=== PATIENT | female | born 1945 | race Caucasian/White ===

== ENCOUNTER → 2020-07-09 | Outpatient (CLI) | payer MEDICARE, BC ==
[2020-07-10 04:07] LABS: DHEA SO4 34.8 ug/dL (13.9-142.8); ESTRADIOL LEVEL 14.9 pg/mL (.); PROGESTERONE 1.4 ng/mL (.)
== END | disposition home or self-care (01) ==
LOC: LAB 10:04
PROVIDERS: ATTEND Obstetrics & Gynecology
DX: N95.1 Menopausal and female climacteric states (principal); Z79.890 Hormone replacement therapy
CPT/HCPCS: 36415; 82627; 82670; 82679; 84144

== ENCOUNTER → 2021-05-17 | Outpatient (CLI) | payer MEDICARE, BC ==
--- NOTE | 2021-05-17 15:58 | RAD ---
EXAM: Chest, 2 views. HISTORY: Breast cancer. COMPARISON: None. FINDINGS: 2 views of the chest are obtained. There is bilateral lower lobe and lingular linear atelec tasis or scarring. There is no consolidation, pleural effusion or pneumothorax. The heart is normal i n size. There is a chronic mild to moderate wedge compression deformity at an upper thoracic vertebra l level. There are left axillary clips. IMPRESSION: Bilateral lower lobe and lingular linear atelectasis or scarring. Electronically signed by: Katia Sharp MD (05/17/2021 3:55 PM) [id number]
== END ==
LOC: RAD 15:19
DX: C50.412 Malignant neoplasm of upper-outer quadrant of left female breast (principal); M43.8X4 Other specified deforming dorsopathies, thoracic region
CPT/HCPCS: 71046

== ENCOUNTER 2021-07-02 10:19 | Inpatient (IN) | payer MEDICARE, BC ==
[~2021-07-02] VITALS: Ht 160 cm; Wt 72.6 kg
[2021-07-02 08:50] VITALS: BP 110/58
--- NOTE | 2021-07-02 10:39 | RAD ---
CT HEAD INDICATION: Code stroke COMPARISON: None Available. Exposure: One or more of the following individualized dose reduction techniques were utilized for thi s examination: 1. Automated exposure control 2. Adjustment of the mA and/or kV according to patient size 3. Use of iterative reconstruction technique TECHNIQUE: 5 mm contiguous axial images were obtained from the skull base to the vertex in both bone and soft tissue algorithm. FINDINGS: Mild prominent bilateral periventricular white matter hypodensities likely chronic small vessel ische myah disease No evidence of acute intracranial hemorrhage. No extra-axial fluid collections. No mass effect or midline shift. The lateral ventricles are prominent. Basal cisterns are patent. No fractures identified.Meehan-white differentiation is preserved.Globes and orbits are within normal l imits. Paranasal sinuses and mastoid air cells are clear. IMPRESSION: 1. No acute intracranial findings. 2. Mild prominent appearing lateral ventricles could be age related or normal pressure hydrocephalus. FOR INTERNAL CODING PURPOSES Critical result: Findings discussed with ER physician at 07/02/2021 10:32 AM. RESULT CODE: (C) Electronically signed by: Gómez Crow MD (07/02/2021 10:37 AM) [id number]
--- NOTE | 2021-07-02 10:43 | PHYS DOC ---
Past History Alcohol Use: None Adult General Chief Complaint Chief Complaint: NEURO SYMPTOMS/DEFICITS HPI HPI Patient is a 75-year-old female presenting via EMS for altered mental status. Patient initially brought in via EMS due to suspect stroke. Patient's last known normal was night prior at 9 PM. Patient reportedly woke up and was more confused and "talking gibberish"per who lives with patient. He states there was no trauma or falls but admits patient was unstable on her feet and having trouble performing simple tasks such as opening the gate in their yard which is something she has never struggled with before. He also reports that at times, she became incomprehensible when speaking prompting him to contact EMS as he was concern for potential stroke. does disclose that patient has history of left-sided breast cancer, unsure the name of it, but recently had a lumpectomy in April 2021 at [facility] and has been undergoing radiation treatments there as well. Review of Systems Review of Systems ROS unobtainable due to patient condition/mentation Allergies Allergies Allergies Coded Allergies Type Severity Reaction Last Updated Verified oxycodone Allergy Unknown 07/02/21 Yes Physical Exam Physical Exam Constitutional: Patient appears pleasantly confused talking in incomprehensible sentences HEENT: Head: Normocephalic and atraumatic. TMs clear, no hemotympanum Conjunctivae and EOM are normal. Pupils are equal, round, and reactive to light. Oropharynx is clear and moist. No hematomas or lacerations or abrasions to face or scalp OP clear, no blood, no malocclusion, dentition intact Nares clear, no nasal septal hematoma Midface stable Neck: C-spine midline nontender, no step-offs Cardiovascular: Normal rate, regular rhythm and normal heart sounds. Pulmonary/Chest: Effort normal and breath sounds normal. No respiratory distress. No wheezes. CTA bilaterally Abdominal: Soft. Bowel sounds are normal. Pt exhibits no distension. There is no tenderness. Musculoskeletal: No bony tenderness to extremities, no deformities, full ROM extremities Chest wall stable Pelvis stable and non-tender No vertebral TTP and spine without stepoffs Neurological: Pt is alert and oriented to person only which is not her baseline Moving all extremities willfully, able to wiggle all fingers and toes No meningeal signs/nuchal rigidity Motor and sensory function fully intact Downgoing toes bilaterally Skin: Skin is warm and dry. No abrasions, no lacerations. Patient's left breast is red and hot to touch and appears tender with palpation versus contralateral side Psychiatric: Behavior is inappropriate. Poor judgment and memory. Normal affect and energetic mood. Unable to fully assess due to underlying mentation Current Patient Data Vital Signs Vital Signs Date Time Temp Pulse Resp B/P (MAP) Pulse Ox O2 Delivery O2 Flow Rate FiO2 07/02/21 10:35 101.8 133 16 130/75 97 Room Air Vital Signs Date Time Temp Pulse Resp B/P (MAP) Pulse Ox O2 Delivery O2 Flow Rate FiO2 07/02/21 17:13 77 16 125/74 (91) 98 Room Air 07/02/21 10:35 101.8 Lab Results Current Medications Medications (Trade) Dose Ordered Sig/Katelynn Route PRN Reason Start Time Stop Time Status Last Admin Dose Admin Acetaminophen (Tylenol Supp) 650 mg 1X ONCE OK 07/02/21 11:00 07/02/21 11:05 DC 07/02/21 11:33 Sodium Chloride 1,650 ml @ 1,650 mls/hr Q1H IV 07/02/21 11:00 07/02/21 21:28 DC 07/02/21 11:41 Sodium Chloride 500 ml @ 1,000 mls/hr PRN Q30MIN PRN IV SEE COMMENTS 07/02/21 11:00 07/05/21 19:34 DC Vancomycin HCl (Vanco Per Pharmacy) 1 each PRN DAILY PRN MC SEE COMMENTS 07/02/21 11:00 07/05/21 19:34 DC 07/04/21 13:53 Piperacillin Sod/ Tazobactam Sod 4.5 gm/Sodium Chloride 50 ml @ 100 mls/hr Q6HRS IV 07/02/21 12:00 07/02/21 21:32 DC 07/02/21 11:40 Sodium Chloride 50 ml @ As Directed STK-MED ONCE .ROUTE 07/02/21 11:22 07/02/21 11:22 DC Piperacillin Sod/ Tazobactam Sod (Zosyn) 4.5 gm STK-MED ONCE IV 07/02/21 11:22 07/02/21 11:22 DC Vancomycin HCl 1.75 gm/Sodium Chloride 500 ml @ 250 mls/hr 1X ONCE IV 07/02/21 12:30 07/02/21 14:29 DC 07/02/21 12:46 Diltiazem HCl (Cardizem Iv Push) 20 mg 1X ONCE IVP 07/02/21 12:15 07/02/21 12:20 DC 07/02/21 12:23 Fentanyl Citrate (Fentanyl 2ml Vial) 75 mcg 1X ONCE IVP 07/02/21 16:00 07/02/21 16:04 DC 07/02/21 15:58 Sodium Chloride 1,000 ml @ 125 mls/hr 1X ONCE IV 07/02/21 16:45 07/03/21 00:44 DC 07/02/21 16:45 Ondansetron HCl (Zofran) 4 mg PRN Q4HRS PRN IVP NAUSEA/VOMITING 1st choice 07/02/21 21:00 07/03/21 20:59 DC Diltiazem HCl (Cardizem Iv Push) 20 mg 1X ONCE IVP 07/02/21 21:00 07/02/21 21:00 DC Diltiazem HCl 125 mg/Sodium Chloride 125 ml @ 5 mls/hr CONT PRN IV SEE I/O RECORD 07/02/21 21:00 07/02/21 21:00 DC Haloperidol Lactate (Haldol) 5 mg 1X ONCE IVP 07/02/21 21:00 07/02/21 21:00 DC Fentanyl Citrate (Fentanyl 2ml Vial) 50 mcg PRN Q3HRS ONCE IVP 07/02/21 21:00 07/02/21 21:00 DC Sodium Chloride 1,000 ml @ 1,000 mls/hr 1X ONCE IV 07/02/21 21:00 07/02/21 21:00 DC Sodium Chloride 1,000 ml @ 125 mls/hr 1X ONCE IV 07/02/21 23:00 07/02/21 21:00 DC Diltiazem HCl (Cardizem Iv Push) 25 mg STK-MED ONCE IVP 07/02/21 21:09 07/02/21 21:09 DC Sodium Chloride 1,000 ml @ 1,000 mls/hr 1X ONCE IV 07/02/21 21:15 07/02/21 21:59 DC 07/02/21 21:55 Diltiazem HCl 125 mg/Sodium Chloride 125 ml @ 5 mls/hr CONT PRN IV SEE I/O RECORD 07/02/21 22:00 07/05/21 19:34 DC 07/04/21 05:51 Diltiazem HCl (Cardizem Iv Push) 20 mg 1X ONCE IVP 07/02/21 21:00 07/02/21 21:26 DC 07/02/21 21:10 Haloperidol Lactate (Haldol) 5 mg 1X ONCE IVP 07/02/21 21:00 07/02/21 21:26 DC 07/02/21 21:57 Fentanyl Citrate (Fentanyl 2ml Vial) 50 mcg PRN Q3HRS PRN IVP PAIN 07/02/21 21:00 07/05/21 19:34 DC 07/03/21 01:37 Sodium Chloride 1,000 ml @ 125 mls/hr 1X ONCE IV 07/02/21 23:00 07/03/21 06:59 DC 07/02/21 23:00 Piperacillin Sod/ Tazobactam Sod 4.5 gm/Sodium Chloride 50 ml @ 100 mls/hr Q6H IV 07/02/21 22:00 07/05/21 19:34 DC 07/05/21 16:49 Vancomycin HCl 1 gm/Sodium Chloride 250 ml @ 250 mls/hr Q24H IV 07/03/21 13:00 07/04/21 13:46 DC 07/04/21 13:41 Vancomycin HCl (Vancomycin Trough Level) 1 each 1X ONCE MC 07/04/21 12:30 07/04/21 12:31 DC 07/04/21 12:30 Lactobacillus Rhamnosus (Culturelle) 1 cap BID PO 07/03/21 09:00 07/05/21 19:34 DC 07/05/21 08:06 Adenosine (Adenocard) 6 mg STK-MED ONCE IV 07/03/21 10:39 07/03/21 10:39 DC Diltiazem HCl (Cardizem Iv Push) 25 mg STK-MED ONCE IVP 07/03/21 10:46 07/03/21 10:46 DC Diltiazem HCl (Cardizem Iv Push) 10 mg 1X ONCE IVP 07/03/21 11:00 07/03/21 11:08 DC 07/03/21 11:01 Adenosine (Adenocard) 12 mg 1X ONCE IV 07/03/21 11:00 07/03/21 11:08 DC 07/03/21 11:00 Digoxin (Lanoxin) 500 mcg 1X ONCE IV 07/03/21 15:30 07/03/21 15:34 DC 07/03/21 15:38 Digoxin (Lanoxin) 125 mcg DAILY PO 07/04/21 09:00 07/04/21 09:30 DC Diltiazem HCl (Cardizem 24hr Cd) 240 mg DAILY PO 07/04/21 09:00 07/05/21 19:34 DC 07/05/21 08:08 Acetaminophen (Tylenol) 325 mg STK-MED ONCE PO 07/03/21 20:04 07/03/21 20:04 DC Acetaminophen (Tylenol) 650 mg PRN Q6HRS PRN PO MILD PAIN / TEMP > 100.3'F 07/03/21 20:15 07/05/21 19:34 DC 07/05/21 14:37 Metoprolol Succinate (Toprol Xl) 25 mg DAILY PO 07/04/21 09:00 07/04/21 09:30 DC Atorvastatin Calcium (Lipitor) 10 mg QHS PO 07/04/21 21:00 07/05/21 19:34 DC 07/04/21 19:42 Pantoprazole Sodium (Protonix) 40 mg DAILYAC PO 07/04/21 09:00 07/05/21 19:34 DC 07/05/21 08:08 Digoxin (Lanoxin) 250 mcg 1X ONCE IV 07/04/21 12:15 07/04/21 12:16 DC 07/04/21 12:08 Vancomycin HCl 1 gm/Sodium Chloride 250 ml @ 250 mls/hr Q12H IV 07/05/21 01:00 07/05/21 19:34 DC 07/05/21 00:51 Vancomycin HCl (Vancomycin Trough Level) 1 each 1X ONCE MC 07/06/21 12:30 07/05/21 19:34 DC Amiodarone HCl (Cordarone) 200 mg BID PO 07/04/21 17:00 07/05/21 19:34 DC 07/05/21 08:07 Aspirin (Aspirin Enteric Coated) 81 mg DAILYWBKFT PO 07/05/21 08:00 07/05/21 19:34 DC 07/05/21 08:06 Amiodarone HCl 150 mg/Dextrose 103 ml @ 618 mls/hr 1X ONCE IVP 07/04/21 18:00 07/04/21 18:09 DC 07/04/21 19:40 Amiodarone HCl 150 mg/Dextrose 103 ml @ 600 mls/hr 1X ONCE IV 07/04/21 18:00 07/04/21 18:08 DC Amiodarone HCl 450 mg/Dextrose 259 ml @ 33.33 mls/ hr CONT PRN IV SEE I/O RECORD 07/04/21 18:00 07/05/21 17:59 DC 07/05/21 05:05 Amiodarone HCl (Cordarone) 150 mg STK-MED ONCE IVP 07/05/21 02:32 07/05/21 02:32 DC EKG EKG Initial EKG ordered and interpreted by myself at 1036 hrs. as in irregular rhythm at 167 bpm, prolonged QTC at 473 otherwise unremarkable intervals, no axis deviation, gross artifact due to tremors with concern for T wave inversion in leads V1 through V4, no obvious STEMI Repeat EKG ordered and interpreted by myself at 1245 hrs. as sinus rhythm at 95 bpm with several PVCs present, prolonged QTC at 468 otherwise unremarkable intervals, left axis deviation, T wave inversion noted in leads V1 through V3 otherwise no obvious ischemic findings, no STEMI Repeat EKG ordered and interpreted by myself at 1747 hrs. as sinus rhythm at 80 bpm, unremarkable intervals, persistent T wave inversions noted in leads V1 through V3 otherwise no acute ischemic findings, no STEMI Radiology/Procedures Radiology/Procedures CT HEAD INDICATION: Code stroke COMPARISON: None Available. Exposure: One or more of the following individualized dose reduction techniques were utilized for this examination: 1. Automated exposure control 2. Adjustment of the mA and/or kV according to patient size 3. Use of iterative reconstruction technique TECHNIQUE: 5 mm contiguous axial images were obtained from the skull base to the vertex in both bone and soft tissue algorithm. FINDINGS: Mild prominent bilateral periventricular white matter hypodensities likely chronic small vessel ischemic disease No evidence of acute intracranial hemorrhage. No extra-axial fluid collections. No mass effect or midline shift. The lateral ventricles are prominent. Basal cisterns are patent. No fractures identified.Meehan-white differentiation is preserved.Globes and orbits are within normal limits. Paranasal sinuses and mastoid air cells are clear. IMPRESSION: 1. No acute intracranial findings. 2. Mild prominent appearing lateral ventricles could be age related or normal pressure hydrocephalus. ///////////////////////////// Single AP view of the chest. Comparison: 05/17/2021. Indication: Code stroke Findings: Stable degenerative change of bilateral shoulders. The heart is at the upper limits of normal but stable. There is no pneumothorax or effusion. No air space or interstitial disease. Impression: 1. No acute cardiopulmonary process. Electronically signed by: Stanley Arriola MD (07/02/2021 11:19 AM) [id number] Heart Score C/O Chest Pain: N/A HEART Score for Chest Pain: HEART Score for Chest Pain Response (Comments) Value History Moderately Suspicious [address] Depression 2 Age > 65 2 Risk Factors >3 Risk Factors or Hx CAD 2 Troponin < Normal Limit 0 Total 7 Risk Factors: Risk Factors: DM, Current or recent (<one month) smoker, HTN, HLP, family history of CAD, obesity. Risk Scores: Risk Factors: DM, Current or recent (<one month) smoker, HTN, HLP, family history of CAD, obesity. Course & Med Decision Making Course & Med Decision Making Code stroke initially called on arrival with unremarkable CT head and POC glucose obtained Patient brought back to ER room for evaluation when formal vitals obtained concerning for tachycardia and fever. Clinical presentation more consistent with infectious etiology versus stroke History limited, physical examination and ER work-up concerning for sepsis with source being cellulitis likely causing patient to be delirious. Appropriate sepsis guidelines obtained, IV fluids, lactic, blood cultures, and IV antibiotics initiated Patient did have episode of atrial fibrillation with RVR which was unknown to her and , patient converted back to normal sinus rhythm after Cardizem bolus Attempts were made to transfer patient to [facility]; however, due to current COVID-19 pandemic hospital was full and there was a lengthy wait time While waiting transfer, patient tolerated ER intervention provided well with improvement in mentation back to AAOx3 state. Decision was made to contact admitting hospitalist at [facility] who ultimately accepted patient at [facility] for immediate admission I updated both patient and on plan of care, both were amenable. All questions and concerns addressed. Patient full CODE STATUS on hospital admission Critical Care Time This patient required critical care. Due to the fact that the patient required a significant amount of one on one physician - patient contact time, ordering and review of studies, arranging urgent treatment with development of a management plan, evaluation of patients response to treatment with frequent reassessments, and discussions with other providers this patient required 50 minutes of critical care time. Critical care time was indicated due to the inherent instability and/or potential for instability in this patient. The critical care time that is allocated to this patient is above and beyond any time spent on any other billable procedures performed on this patient. Dragon Disclaimer Dragon Disclaimer This electronic medical record was generated, in whole or in part, using a voice recognition dictation system. Departure Departure: Impression: Primary Impression: Sepsis due to cellulitis Additional Impressions: Breast cancer Delirium due to medical condition with behavioral disturbance Disposition: ADMITTED INPATIENT Admitting Physician: Martha Burkett Referrals: MERARY COTE MD (PCP) Problem Qualifiers PEYTON DENNISON DO Jul 02, 2021 10:43
--- NOTE | 2021-07-02 10:49 | EKG ---
[address] [address] Test Date: 2021-07-02 Test Time: 10:35:56 Pat Name: JAZMÍN FRANKLIN Department: Room: Gender: F Clinical Programmer: MARY : 1945 Requested By: PEYTON DENNISON Order Number: [id number] Reading MD: Measurements Intervals [place] Rate: 167 P: [place]: QRS: 14 QRSD: 116 T: 24 QT: 284 QTc: 473 Interpretive Statements IRREGULAR RHYTHM, NO P-WAVE FOUND VENTRICULAR PREMATURE COMPLEX(ES) R-S TRANSITION ZONE IN V LEADS DISPLACED TO THE RIGHT INCOMPLETE RIGHT BUNDLE BRANCH BLOCK RVH WITH REPOLARIZATION ABNORMALITY QRS(T) CONTOUR ABNORMALITY CONSISTENT WITH INFERIOR INFARCT PROBABLY OLD ABNORMAL ECG RI6.02 No previous ECG available for comparison
[2021-07-02] MEDS ORDERED: IV NORMAL SALINE 500ML 500 ML IV PRN (11:00)
[2021-07-02] MEDS ORDERED: NORMAL SALINE IV SCH (11:00)
[2021-07-02] MEDS ORDERED: ACETAMINOPHEN 650 MG SUPP.RECT. PR ONE (11:00)
--- NOTE | 2021-07-02 11:21 | RAD ---
Single AP view of the chest. Comparison: 05/17/2021. Indication: Code stroke Findings: Stable degenerative change of bilateral shoulders. The heart is at the upper limits of normal but sta ble. There is no pneumothorax or effusion. No air space or interstitial disease. Impression: 1. No acute cardiopulmonary process. Electronically signed by: Stanley Arriola MD (07/02/2021 11:19 AM) [id number]
[2021-07-02] MEDS ORDERED: IV NORMAL SALINE 50ML 50 ML ONE (11:22)
[2021-07-02] MEDS ORDERED: PIPERACILLIN/TAZOBACTAM 4.5 GM VIAL IV ONE (11:22)
[2021-07-02 11:35] LABS: BASO # 0.1 x10^3/uL (0.0-0.2); BASO % 1 % (0-3); EOS # 0.1 x10^3/uL (0.0-0.7); EOS % 0 % (0-3); HEMATOCRIT 41.1 % (36.0-47.0); HEMOGLOBIN 13.8 g/dL (12.0-15.5); LYMPH # 0.7 x10^3/uL (1.0-4.8); LYMPH % 4 % (24-48); MEAN CORPUSCULAR HEMOGLOBIN 31 pg (25-35); MEAN CORPUSCULAR HGB CONC 34 g/dL (31-37); MEAN CORPUSCULAR VOLUME 93 fL (79-100); MONO # 0.7 x10^3/uL (0.0-1.1); MONO % 4 % (0-9); NEUT # 14.5 x10^3uL (1.8-7.7); NEUT % 91 % (31-73); PLATELET COUNT 141 x10^3/uL (140-400); RED BLOOD COUNT 4.44 x10^6/uL (3.50-5.40); RED CELL DISTRIBUTION WIDTH 13.5 % (11.5-14.5)
[2021-07-02 11:43] LABS: CALCIUM 8.2 mg/dL (8.5-10.1); CREATININE 0.9 mg/dL (0.6-1.0); GFR 60.9; POTASSIUM 4.3 mmol/L (3.5-5.1)
[2021-07-02 11:55] LABS: ALBUMIN 3.5 g/dL (3.4-5.0); TOTAL BILIRUBIN 0.9 mg/dL (0.2-1.0); TOTAL PROTEIN 6.9 g/dL (6.4-8.2)
[2021-07-02] MEDS ORDERED: PIPERACILLIN/TAZOBACTAM 4.5 GM in IV NORMAL SALINE 50ML 50 ML IV SCH (12:00)
[2021-07-02] MEDS ORDERED: dilTIAZem 25 MG/5 ML VIAL IVP ONE ×4 (12:15→21:09)
[2021-07-02] MEDS ORDERED: VANCOMYCIN 1.75 GM in IV NORMAL SALINE 500ML 500 ML IV ONE (12:30)
--- NOTE | 2021-07-02 12:56 | EKG ---
[address] [address] Test Date: 2021-07-02 Test Time: 12:38:38 Pat Name: JAZMÍN FRANKLIN Department: Room: Gender: F [place] Technician: MARY : 1945 Requested By: PEYTON DENNISON Order Number: [id number] Reading MD: Measurements Intervals [place] Rate: 95 P: 88 CT: 140 QRS: 3 QRSD: 116 T: 28 QT: 370 QTc: 468 Interpretive Statements SINUS RHYTHM ATRIAL PREMATURE COMPLEX(ES) R-S TRANSITION ZONE IN V LEADS DISPLACED TO THE RIGHT INCOMPLETE RIGHT BUNDLE BRANCH BLOCK RVH WITH REPOLARIZATION ABNORMALITY QRS(T) CONTOUR ABNORMALITY CONSIDER INFERIOR INFARCT ABNORMAL ECG RI6.02 No previous ECG available for comparison
[2021-07-02 13:33] LABS: % BANDS 14 % (0-9); % EOS 1 % (0-5); % LYMPHS 8 % (24-48); % MONOS 1 % (0-10); % SEGS 76 % (35-66); PLT ESTIMATE ADEQUATE (ADEQUATE)
[2021-07-02] MEDS ORDERED: IV NORMAL SALINE 1,000ML 1,000 ML IV ONE ×5 (16:45→23:00)
--- NOTE | 2021-07-02 17:51 | EKG ---
[address] [address] Test Date: 2021-07-02 Test Time: 17:39:25 Pat Name: JAZMÍN FRANKLIN Department: Room: Gender: F Director Of Event Sales: MARY : 1945 Requested By: PEYTON DENNISON Order Number: [id number] Reading MD: Sameer Nieto MD Measurements Intervals [place] Rate: 82 P: 62 [place]: 148 QRS: -8 QRSD: 108 T: 15 QT: 386 QTc: 454 Interpretive Statements SINUS RHYTHM RBBB CONSIDER PRIOR INFERIOR INFARCT Electronically Signed On 07-03-2021 16:46:31 CDT by Sameer Nieto MD
[2021-07-02 20:58] VITALS: BP 110/58
[2021-07-02] MEDS ORDERED: HALOPERIDOL LACT 5 MG/ML VIAL. IVP ONE ×2 (21:00)
[2021-07-02] MEDS ORDERED: ONDANSETRON PF 4 MG/2 ML VIAL. IVP PRN (21:00)
[2021-07-02] MEDS ORDERED: dilTIAZem VIAL 125 MG in IV NORMAL SALINE 100ML 100 ML IV PRN (21:00)
[2021-07-02 21:12] VITALS: BP 94/58
[2021-07-02] MEDS: PIPERACILLIN/TAZOBACTAM 4.5 GM in IV NORMAL SALINE 50ML 50 ML IV SCH (21:57)
[2021-07-02 22:00] VITALS: BP 117/52
[2021-07-02] MEDS: VANCOMYCIN PER PHARMACY MC PRN (22:49)
[2021-07-02 23:00] VITALS: BP 129/48
[2021-07-02 23:08] LABS: BACTERIA,URINE 0 /HPF (0-FEW); BILIRUBIN,URINE NEG (NEG); CLARITY,URINE CLEAR; COLOR,URINE YELLOW; GLUCOSE,URINE NEG (NEG); NITRITE,URINE NEG (NEG); RBC,URINE OCC /HPF (0-2); SQUAMOUS EPITHELIAL CELL,UR FEW /LPF; UROBILINOGEN,URINE 0.2 mg/dL (0.2 mg/dL); WBC,URINE 0 /HPF (0-4)
[2021-07-02 23:09] LABS: AMORPHOUS SEDIMENT,UR PRESENT /HPF
[2021-07-03] VITALS (29 sets, daily range): BP systolic 106–149; BP diastolic 42–92
[2021-07-03] MEDS: PIPERACILLIN/TAZOBACTAM 4.5 GM in IV NORMAL SALINE 50ML 50 ML IV SCH ×4 (03:55→22:10)
[2021-07-03 06:24] LABS: BASO % 0 % (0-3); EOS % 0 % (0-3); HEMATOCRIT 36.4 % (36.0-47.0); LYMPH # 0.7 x10^3/uL (1.0-4.8); LYMPH % 5 % (24-48); MEAN CORPUSCULAR HEMOGLOBIN 31 pg (25-35); MEAN CORPUSCULAR HGB CONC 33 g/dL (31-37); MEAN CORPUSCULAR VOLUME 94 fL (79-100); MONO # 0.6 x10^3/uL (0.0-1.1); MONO % 5 % (0-9); NEUT # 11.6 x10^3uL (1.8-7.7); NEUT % 90 % (31-73); PLATELET COUNT 116 x10^3/uL (140-400); RED BLOOD COUNT 3.88 x10^6/uL (3.50-5.40); RED CELL DISTRIBUTION WIDTH 13.6 % (11.5-14.5)
[2021-07-03 06:36] LABS: ALBUMIN 2.7 g/dL (3.4-5.0); ALBUMIN/GLOBULIN RATIO 0.8 (1.0-1.7); CALCIUM 7.4 mg/dL (8.5-10.1); GFR 53.9; POTASSIUM 3.3 mmol/L (3.5-5.1); TOTAL BILIRUBIN 1.1 mg/dL (0.2-1.0); TOTAL PROTEIN 5.9 g/dL (6.4-8.2)
[2021-07-03] MEDS: LACTOBACILLUS RHAMNOSUS GG 1 CAPSULE. PO SCH ×2 (09:00→20:34)
[2021-07-03] MEDS ORDERED: FLUO40CA9 PO (10:17)
[2021-07-03] MEDS ORDERED: OMEP10CA4 PO (10:17)
[2021-07-03] MEDS ORDERED: HYDR-2763 PO (10:17)
[2021-07-03] MEDS ORDERED: MEMA10TA PO (10:17)
[2021-07-03] MEDS ORDERED: GABA-586 PO (10:17)
[2021-07-03] MEDS ORDERED: DULO60CA6 PO (10:17)
[2021-07-03] MEDS ORDERED: SIMV20TA18 PO (10:30)
[2021-07-03] MEDS ORDERED: METO25TA2 PO (10:30)
[2021-07-03] MEDS ORDERED: ADENOSINE 6 MG/2 ML VIAL IV ONE ×2 (10:39→11:00)
[2021-07-03] MEDS ORDERED: dilTIAZem 25 MG/5 ML VIAL IVP ONE ×2 (10:46→11:00)
[2021-07-03] MEDS: dilTIAZem VIAL 125 MG in IV NORMAL SALINE 100ML 100 ML IV PRN (10:56)
--- NOTE | 2021-07-03 12:36 | HP ---
ADMIT DATE: 07/02/2021 ADMISSION HISTORY AND PHYSICAL ATTENDING PHYSICIAN: Ant Del Cid M.D. CHIEF COMPLAINT: Weakness and fast heart rate. HISTORY OF PRESENT ILLNESS: The patient is a 75-year-old female admitted through the ED with vague symptoms of weakness, significant tachycardia, and cellulitis. She was initially diagnosed with sepsis, cultures are pending. She was started on Zosyn as well as vancomycin for cellulitis involving the skin of the left breast. She has also been getting radiation therapy. In the ICU, she was found to have a supraventricular tachycardia up to 209 beats per minute. Last night, she was given a dose of Cardizem. Today, she is still tachycardic, requiring a dose of Adenocard. I am in the process of starting a Cardizem drip. She is demented and cannot give history. is at home and cannot come in. I will try to contact him later. She has a stable blood pressure and hemodynamically perfusing. PAST MEDICAL HISTORY: Significant for primary carcinoma of the breast, getting radiation therapy. She has underlying dementia, gastroesophageal reflux disease, and hyperlipidemia. CURRENT MEDICATIONS: Include Cymbalta, fluoxetine, Neurontin, hydrocodone, Namenda, metoprolol only 25 mg daily, omeprazole, and Zocor. ALLERGIES: SHE HAS ALLERGIES TO OXYCODONE, REACTION IS UNCLEAR. SOCIAL HISTORY: Nonsmoker, nondrinker. FAMILY HISTORY: Unobtainable. REVIEW OF SYSTEMS: Significant for generalized weakness. She has been getting radiation therapy. She is lethargic. She has underlying dementia. All other systems reviewed and turned to be negative. PHYSICAL EXAMINATION: GENERAL: When I saw her, this is a pleasantly confused elderly female. VITAL SIGNS: Showed a blood pressure 131/57, pulse ranged between 70 and 200, temperature 99.0 degrees Fahrenheit, oxygen saturation 96% on 2 L by nasal cannula. HEENT: Head is without trauma. Pupils are reactive. Sclerae nonicteric. Oropharynx is clear. NECK: Supple, no bruits identified. LUNGS: Shallow respirations. CARDIOVASCULAR: Showed distant heart tones. Thready pulse, tachycardic rhythm. ABDOMEN: Soft. EXTREMITIES: Showed trace edema. SKIN: Examination of skin shows redness and erythema involving the entire skin surrounding the left breast, there is minimal drainage. I did not palpate any axillary lymph nodes. NEUROLOGIC: Pleasantly confused. She had no focal deficits. Speech was fluent. PERTINENT LABORATORY STUDIES: Her hemoglobin is 13.8 g, white count 16,000. Her potassium is 3.3 ____, creatinine 1.0. Cardiac enzymes negative for coronary ischemia. Cultures are pending. ASSESSMENT: 1. A 75-year-old female with cellulitis of the skin involving the left breast. 2. History of carcinoma of the breast, getting radiation therapy. 3. History of supraventricular tachycardia. 4. Underlying depression. 5. Dementia. 6. Gastroesophageal reflux disease. 7. Hyperlipidemia. PLAN: 1. Admit to the ICU. 2. Adenocard and Cardizem has been ordered to control her heart rate. 3. Formal Cardiology consultation to help manage her rhythm. 4. Intravenous vancomycin and Zosyn has been ordered and will be continued. 5. Continue home medications. 6. I will contact the to ascertain her code status. Her prognosis is guarded. JAYME/KALEIGH/ROLAND DR: Nano TID: [id number]
[2021-07-03] MEDS: VANCOMYCIN 1 GM in IV NORMAL SALINE 250ML 250 ML IV SCH (14:33)
[2021-07-03] MEDS ORDERED: DIGOXIN IV 500 MCG/2 ML AMPUL. IV ONE (15:30)
[2021-07-03] MEDS ORDERED: ACETAMINOPHEN 325 MG TABLET PO ONE (20:04)
[2021-07-03] MEDS: ACETAMINOPHEN 325 MG TABLET PO PRN (20:34)
[2021-07-04] VITALS (17 sets, daily range): BP systolic 97–151; BP diastolic 53–80
[2021-07-04] MEDS: PIPERACILLIN/TAZOBACTAM 4.5 GM in IV NORMAL SALINE 50ML 50 ML IV SCH ×4 (04:22→22:08)
[2021-07-04] MEDS: dilTIAZem VIAL 125 MG in IV NORMAL SALINE 100ML 100 ML IV PRN (05:51)
--- NOTE | 2021-07-04 08:51 | PDOC2 ---
CARDIAC CONSULT DATE OF CONSULT DOS: DATE: 07/04/21 TIME: 08:37 REASON FOR CONSULT Reason for Consult SVT REFERRING PHYSICIAN Referring Physician Dr. Garcia SOURCE Source: Chart review, Patient (and ) HPI History of Present Illness This is a 75 yo female who presented secondary to weakness and confusion. Patient was recently diagnosed with breast CA. Underwent left breast lumpectomy and has been receiving radiation therapy for the last 4 weeks. Recent developed redness of the left breast. The morning of arrival, was very confused and weak so called EMS and was brought to the ED for further evaluation and treatment. Was noted with leukocytosis, lactic acidosis, and fevers. Blood cultures were obtained and she was initiated on antibiotic therapy with concerns of sepsis. She was noted in AFIB with RVR, which prompted this consult. Was started on Cardizem gtt and given bolus of IV Digoxin and converted back to SR and has maintained overnight. No previous h/o AFIB. Patient reports feeling much better this morning and mentation has improved. She denies any chest pain, palpitations, dizziness, or diaphoresis. PAST MEDICAL HISTORY Cardiovascular: No pertinent hx Pulmonary: Asthma CENTRAL NERVOUS SYSTEM: Periperal neuropathy Heme/Onc: Cancer (breast ) Musculoskeletal: Osteoarthritis Rheumatologic: Fibromyalgia PAST SURGICAL HISTORY Past Surgical History: Colectomy FAMILY HISTORY Family History: Other SOCIAL HISTORY Smoke: No ALCOHOL: none Drugs: None Lives: with Family CURRENT MEDICATIONS Current Medications Current Medications Acetaminophen (Tylenol Supp) 650 mg 1X ONCE WI Last administered on 07/02/21at 11:33; Start 07/02/21 at 11:00; Stop 07/02/21 at 11:05; Status DC Sodium Chloride 1,650 ml @ 1,650 mls/hr Q1H IV Last administered on 07/02/21at 11:41; Start 07/02/21 at 11:00; Stop 07/02/21 at 21:28; Status DC Sodium Chloride 500 ml @ 1,000 mls/hr PRN Q30MIN PRN IV SEE COMMENTS; Start 07/02/21 at 11:00 Vancomycin HCl (Vanco Per Pharmacy) 1 each PRN DAILY PRN MC SEE COMMENTS Last administered on 07/02/21at 22:49; Start 07/02/21 at 11:00 Piperacillin Sod/ Tazobactam Sod 4.5 gm/Sodium Chloride 50 ml @ 100 mls/hr Q6HRS IV Last administered on 07/02/21at 11:40; Start 07/02/21 at 12:00; Stop 07/02/21 at 21:32; Status DC Sodium Chloride 50 ml @ As Directed STK-MED ONCE .ROUTE ; Start 07/02/21 at 11:22; Stop 07/02/21 at 11:22; Status DC Piperacillin Sod/ Tazobactam Sod (Zosyn) 4.5 gm STK-MED ONCE IV ; Start 07/02/21 at 11:22; Stop 07/02/21 at 11:22; Status DC Vancomycin HCl 1.75 gm/Sodium Chloride 500 ml @ 250 mls/hr 1X ONCE IV Last administered on 07/02/21at 12:46; Start 07/02/21 at 12:30; Stop 07/02/21 at 14:29; Status DC Diltiazem HCl (Cardizem Iv Push) 20 mg 1X ONCE IVP Last administered on 07/02/21at 12:23; Start 07/02/21 at 12:15; Stop 07/02/21 at 12:20; Status DC Fentanyl Citrate (Fentanyl 2ml Vial) 75 mcg 1X ONCE IVP Last administered on 07/02/21at 15:58; Start 07/02/21 at 16:00; Stop 07/02/21 at 16:04; Status DC Sodium Chloride 1,000 ml @ 125 mls/hr 1X ONCE IV Last administered on 07/02/21at 16:45; Start 07/02/21 at 16:45; Stop 07/03/21 at 00:44; Status DC Ondansetron HCl (Zofran) 4 mg PRN Q4HRS PRN IVP NAUSEA/VOMITING 1st choice; Start 07/02/21 at 21:00; Stop 07/03/21 at 20:59; Status DC Diltiazem HCl (Cardizem Iv Push) 20 mg 1X ONCE IVP ; Start 07/02/21 at 21:00; Stop 07/02/21 at 21:00; Status DC Diltiazem HCl 125 mg/Sodium Chloride 125 ml @ 5 mls/hr CONT PRN IV SEE I/O RECORD; Start 07/02/21 at 21:00; Stop 07/02/21 at 21:00; Status DC Haloperidol Lactate (Haldol) 5 mg 1X ONCE IVP ; Start 07/02/21 at 21:00; Stop 07/02/21 at 21:00; Status DC Fentanyl Citrate (Fentanyl 2ml Vial) 50 mcg PRN Q3HRS ONCE IVP ; Start 07/02/21 at 21:00; Stop 07/02/21 at 21:00; Status DC Sodium Chloride 1,000 ml @ 1,000 mls/hr 1X ONCE IV ; Start 07/02/21 at 21:00; Stop 07/02/21 at 21:00; Status DC Sodium Chloride 1,000 ml @ 125 mls/hr 1X ONCE IV ; Start 07/02/21 at 23:00; Stop 07/02/21 at 21:00; Status DC Diltiazem HCl (Cardizem Iv Push) 25 mg STK-MED ONCE IVP ; Start 07/02/21 at 21:09; Stop 07/02/21 at 21:09; Status DC Sodium Chloride 1,000 ml @ 1,000 mls/hr 1X ONCE IV Last administered on 07/02/21at 21:55; Start 07/02/21 at 21:15; Stop 07/02/21 at 21:59; Status DC Diltiazem HCl 125 mg/Sodium Chloride 125 ml @ 5 mls/hr CONT PRN IV SEE I/O RECORD Last administered on 07/04/21at 05:51; Start 07/02/21 at 22:00 Diltiazem HCl (Cardizem Iv Push) 20 mg 1X ONCE IVP Last administered on 07/02/21at 21:10; Start 07/02/21 at 21:00; Stop 07/02/21 at 21:26; Status DC Haloperidol Lactate (Haldol) 5 mg 1X ONCE IVP Last administered on 07/02/21at 21:57; Start 07/02/21 at 21:00; Stop 07/02/21 at 21:26; Status DC Fentanyl Citrate (Fentanyl 2ml Vial) 50 mcg PRN Q3HRS PRN IVP PAIN Last administered on 07/03/21at 01:37; Start 07/02/21 at 21:00 Sodium Chloride 1,000 ml @ 125 mls/hr 1X ONCE IV Last administered on 07/02/21at 23:00; Start 07/02/21 at 23:00; Stop 07/03/21 at 06:59; Status DC Piperacillin Sod/ Tazobactam Sod 4.5 gm/Sodium Chloride 50 ml @ 100 mls/hr Q6H IV Last administered on 07/04/21at 04:22; Start 07/02/21 at 22:00 Vancomycin HCl 1 gm/Sodium Chloride 250 ml @ 250 mls/hr Q24H IV Last adminis tered on 07/03/21at 14:33; Start 07/03/21 at 13:00 Vancomycin HCl (Vancomycin Trough Level) 1 each 1X ONCE MC ; Start 07/04/21 at 12:30; Stop 07/04/21 at 12:31 Lactobacillus Rhamnosus (Culturelle) 1 cap BID PO Last administered on 07/03/21at 20:34; Start 07/03/21 at 09:00 Adenosine (Adenocard) 6 mg STK-MED ONCE IV ; Start 07/03/21 at 10:39; Stop 07/03/21 at 10:39; Status DC Diltiazem HCl (Cardizem Iv Push) 25 mg STK-MED ONCE IVP ; Start 07/03/21 at 10:46; Stop 07/03/21 at 10:46; Status DC Diltiazem HCl (Cardizem Iv Push) 10 mg 1X ONCE IVP Last administered on 07/03/21at 11:01; Start 07/03/21 at 11:00; Stop 07/03/21 at 11:08; Status DC Adenosine (Adenocard) 12 mg 1X ONCE IV Last administered on 07/03/21at 11:00; Start 07/03/21 at 11:00; Stop 07/03/21 at 11:08; Status DC Digoxin (Lanoxin) 500 mcg 1X ONCE IV Last administered on 07/03/21at 15:38; Start 07/03/21 at 15:30; Stop 07/03/21 at 15:34; Status DC Digoxin (Lanoxin) 125 mcg DAILY PO ; Start 07/04/21 at 09:00 Diltiazem HCl (Cardizem 24hr Cd) 240 mg DAILY PO ; Start 07/04/21 at 09:00 Acetaminophen (Tylenol) 325 mg STK-MED ONCE PO ; Start 07/03/21 at 20:04; Stop 07/03/21 at 20:04; Status DC Acetaminophen (Tylenol) 650 mg PRN Q6HRS PRN PO MILD PAIN / TEMP > 100.3'F Last administered on 07/03/21at 20:34; Start 07/03/21 at 20:15 Active Scripts Active Reported Simvastatin 20 Mg Tablet 1 Tab PO QHS Toprol Xl (Metoprolol Succinate) 25 Mg Tab.er.24h 1 Tab PO DAILY 30 Days Hydrocodone-Acetamin 7.5-325 (Hydrocodone/Acetaminophen) 1 Each Tablet 1 Each PO BID PRN Gabapentin (Gabapentin) 300 Mg Capsule 900 Mg PO BID Namenda (Memantine Hcl) 10 Mg Tablet 1 Tab PO BID Omeprazole 10 Mg Capsule.dr 10 Mg PO DAILY Prozac (Fluoxetine Hcl) 40 Mg Capsule 1 Cap PO DAILY Cymbalta (Duloxetine Hcl) 60 Mg Capsule.dr 1 Cap PO DAILY ALLERGIES Allergies: Coded Allergies: oxycodone (Verified Allergy, Unknown, 07/02/21) ROS Review of Systems 14 point ROS conducted with pertinent positives noted above in hPI PHYSICAL EXAM General: Alert, Oriented X3, Cooperative, No acute distress HEENT: Atraumatic Lungs: Clear to auscultation Heart: Regular rate (SR) Abdomen: Soft, No tenderness Extremities: No edema, Normal pulses Skin: No breakdown Neuro: Normal speech, Sensation intact Psych/Mental Status: Mental status NL, Mood NL MUSCULOSKELETAL: Osteoarthritic changes both hands VITALS Vital Signs Vital Signs Date Time Temp Pulse Resp B/P (MAP) Pulse Ox O2 Delivery O2 Flow Rate FiO2 07/04/21 08:30 74 17 99 Nasal Cannula 2.0 07/04/21 07:00 139/65 (89) 07/04/21 06:16 97.8 LABS LABS Laboratory Tests Test 07/02/21 10:22 07/02/21 10:46 07/02/21 11:49 07/02/21 15:00 Glucose (Fingerstick) 93 mg/dL (70-99) White Blood Count 16.0 x10^3/uL (4.0-11.0) Red Blood Count 4.44 x10^6/uL (3.50-5.40) Hemoglobin 13.8 g/dL (12.0-15.5) Hematocrit 41.1 % (36.0-47.0) Mean Corpuscular Volume 93 fL (79-100) Mean Corpuscular Hemoglobin 31 pg (25-35) Mean Corpuscular Hemoglobin Concent 34 g/dL (31-37) Red Cell Distribution Width 13.5 % (11.5-14.5) Platelet Count 141 x10^3/uL (140-400) Neutrophils (%) (Auto) 91 % (31-73) Lymphocytes (%) (Auto) 4 % (24-48) Monocytes (%) (Auto) 4 % (0-9) Eosinophils (%) (Auto) 0 % (0-3) Basophils (%) (Auto) 1 % (0-3) Neutrophils # (Auto) 14.5 x10^3uL (1.8-7.7) Lymphocytes # (Auto) 0.7 x10^3/uL (1.0-4.8) Monocytes # (Auto) 0.7 x10^3/uL (0.0-1.1) Eosinophils # (Auto) 0.1 x10^3/uL (0.0-0.7) Basophils # (Auto) 0.1 x10^3/uL (0.0-0.2) Segmented Neutrophils % 76 % (35-66) Band Neutrophils % 14 % (0-9) Lymphocytes % 8 % (24-48) Monocytes % 1 % (0-10) Eosinophils % 1 % (0-5) Platelet Estimate Adequate (ADEQUATE) Prothrombin Time 9.5 SEC (9.4-11.4) Prothromb Time International Ratio 1.0 (0.9-1.1) Activated Partial Thromboplast Time 23 SEC (23-33) Sodium Level 136 mmol/L (136-145) Potassium Level 4.3 mmol/L (3.5-5.1) Chloride Level 100 mmol/L (98-107) Carbon Dioxide Level 27 mmol/L (21-32) Anion Gap 9 (6-14) Blood Urea Nitrogen 17 mg/dL (7-20) Creatinine 0.9 mg/dL (0.6-1.0) Estimated GFR (Cockcroft-Gault) 60.9 BUN/Creatinine Ratio 19 (6-20) Glucose Level 87 mg/dL (70-99) Lactic Acid Level 2.3 mmol/L (0.4-2.0) Calcium Level 8.2 mg/dL (8.5-10.1) Total Bilirubin 0.9 mg/dL (0.2-1.0) Aspartate Amino Transf (AST/SGOT) 30 U/L (15-37) Alanine Aminotransferase (ALT/SGPT) 46 U/L (14-59) Alkaline Phosphatase 92 U/L (46-116) Ammonia 27 mcmol/L (11-34) Troponin I Quantitative < 0.017 ng/mL (0-0.055) Total Protein 6.9 g/dL (6.4-8.2) Albumin 3.5 g/dL (3.4-5.0) Albumin/Globulin Ratio 1.0 (1.0-1.7) Coronavirus (COVID-19)(PCR) Negative (NEGATIVE) SARS-CoV-2 Antigen (Rapid) Negative (NEGATIVE) Bedside Venous pH 7.40 (7.32-7.42) Bedside Venous pCO2 39 mmHg (41-51) Bedside Venous pO2 37 mmHg (20-40) Venous Blood HCO3 24 mmol/L (24-28) POC Venous O2 Saturation (Rafael) 70 % Bedside FiO2 21 Test 07/02/21 15:04 07/02/21 22:40 07/03/21 06:03 Lactic Acid Level 2.3 mmol/L (0.4-2.0) 1.7 mmol/L (0.4-2.0) Urine Collection Type Unknown Urine Color Yellow Urine Clarity Clear Urine pH 5.0 Urine Specific Amelia 1.025 Urine Protein Neg (NEG-TRACE) Urine Glucose (UA) Neg mg/dL (NEG) Urine Ketones (Stick) Neg mg/dL (NEG) Urine Blood Small (NEG) Urine Nitrite Neg (NEG) Urine Bilirubin Neg (NEG) Urine Urobilinogen Dipstick 0.2 mg/dL (0.2 mg/dL) Urine Leukocyte Esterase Neg (NEG) Urine RBC Occ /HPF (0-2) Urine WBC 0 /HPF (0-4) Urine Squamous Epithelial Cells Few /LPF Urine Amorphous Sediment Present /HPF Urine Bacteria 0 /HPF (0-FEW) White Blood Count 13.0 x10^3/uL (4.0-11.0) Red Blood Count 3.88 x10^6/uL (3.50-5.40) Hemoglobin 12.0 g/dL (12.0-15.5) Hematocrit 36.4 % (36.0-47.0) Mean Corpuscular Volume 94 fL (79-100) Mean Corpuscular Hemoglobin 31 pg (25-35) Mean Corpuscular Hemoglobin Concent 33 g/dL (31-37) Red Cell Distribution Width 13.6 % (11.5-14.5) Platelet Count 116 x10^3/uL (140-400) Neutrophils (%) (Auto) 90 % (31-73) Lymphocytes (%) (Auto) 5 % (24-48) Monocytes (%) (Auto) 5 % (0-9) Eosinophils (%) (Auto) 0 % (0-3) Basophils (%) (Auto) 0 % (0-3) Neutrophils # (Auto) 11.6 x10^3uL (1.8-7.7) Lymphocytes # (Auto) 0.7 x10^3/uL (1.0-4.8) Monocytes # (Auto) 0.6 x10^3/uL (0.0-1.1) Eosinophils # (Auto) 0.0 x10^3/uL (0.0-0.7) Basophils # (Auto) 0.0 x10^3/uL (0.0-0.2) Sodium Level 139 mmol/L (136-145) Potassium Level 3.3 mmol/L (3.5-5.1) Chloride Level 103 mmol/L (98-107) Carbon Dioxide Level 24 mmol/L (21-32) Anion Gap 12 (6-14) Blood Urea Nitrogen 12 mg/dL (7-20) Creatinine 1.0 mg/dL (0.6-1.0) Estimated GFR (Cockcroft-Gault) 53.9 BUN/Creatinine Ratio 12 (6-20) Glucose Level 119 mg/dL (70-99) Calcium Level 7.4 mg/dL (8.5-10.1) Total Bilirubin 1.1 mg/dL (0.2-1.0) Aspartate Amino Transf (AST/SGOT) 25 U/L (15-37) Alanine Aminotransferase (ALT/SGPT) 33 U/L (14-59) Alkaline Phosphatase 77 U/L (46-116) Total Protein 5.9 g/dL (6.4-8.2) Albumin 2.7 g/dL (3.4-5.0) Albumin/Globulin Ratio 0.8 (1.0-1.7) ASSESSMENT/PLAN Assessment/Plan 1. Leukocytosis, lactic acidosis, fevers, sepsis 2. Encephaloapthy 3. AFIB with RVR; new findings. Converted back to SR with Cardizem gtt and IV Dig. Presently maintaining SR 4. Breast CA; s/p 4 weeks of radiation therapy; cellulitis of left breast 5. Peripheral neuropathy, fibromyalgia 6. Thrombocytopenia; PLT 116 Recommendations Convert Cardizem to oral; titrate off gtt Add ASA therapy Monitor PLTs TSH Echo to assess LV systolic function Ongoing antibiotic therapy Outpatient event monitor to guide therapy. Supportive care ETHEL ASCENCIO APRN Jul 04, 2021 08:51
[2021-07-04] MEDS ORDERED: DIGOXIN 125 MCG TABLET PO SCH (09:00)
[2021-07-04] MEDS ORDERED: METOPROLOL SUCC 24HR ER 25 MG TAB.ER.24H. PO SCH (09:00)
[2021-07-04] MEDS: PANTOPRAZOLE 40 MG TABLET. PO SCH (10:33)
[2021-07-04] MEDS: LACTOBACILLUS RHAMNOSUS GG 1 CAPSULE. PO SCH ×2 (10:33→19:43)
[2021-07-04] MEDS: ACETAMINOPHEN 325 MG TABLET PO PRN ×2 (12:08→19:42)
[2021-07-04] MEDS ORDERED: DIGOXIN IV 500 MCG/2 ML AMPUL. IV ONE (12:15)
[2021-07-04 13:14] LABS: VANC TR 3.8 mcg/mL (10.0-20.0)
[2021-07-04] MEDS: VANCOMYCIN 1 GM in IV NORMAL SALINE 250ML 250 ML IV SCH (13:41)
[2021-07-04] MEDS: VANCOMYCIN PER PHARMACY MC PRN (13:53)
[2021-07-04] MEDS: AMIODARONE HCL 200 MG TABLET. PO SCH ×2 (17:19→20:06)
[2021-07-04] MEDS ORDERED: AMIODARONE 150 MG in IV DEXTROSE 5% 100 ML IV ONE (18:00)
[2021-07-04] MEDS ORDERED: AMIODARONE 150 MG in IV DEXTROSE 5% 100 ML IVP ONE (18:00)
[2021-07-04] MEDS: AMIODARONE 450 MG in IV DEXTROSE 5% 250 ML IV PRN (19:48)
--- NOTE | 2021-07-04 20:20 | PN ---
DATE: 07/04/2021 ATTENDING PHYSICIAN: Dr. Garcia. SUBJECTIVE: The patient is pleasantly confused. She is not in any distress. She is comfortable. She denied any pain or discomfort. OBJECTIVE FINDINGS: VITAL SIGNS: Blood pressure this morning is 129/53 mmHg, pulse is now down to 76 and regular, temperature 97.8 degrees Fahrenheit, oxygen saturation 96% on room air. HEENT: Head is without trauma. Pupils are reactive. Sclerae is nonicteric. Oropharynx clear. NECK: Supple, no bruits. LUNGS: Good breath sounds. BREASTS: I did examine the skin in the left breast, the redness and induration is improved. It is less tender and indurated. Cellulitis is receding. ABDOMEN: Soft. EXTREMITIES: Without edema. NEUROLOGIC: Focally intact, but she is pleasantly confused. ASSESSMENT: 1. A 75-year-old female with cellulitis and mastitis, left breast. 2. History of breast cancer with recent radiation therapy. 3. Supraventricular tachycardia/atrial fibrillation with now controlled ventricular rate. 4. Underlying depression. 5. Dementia. 6. Gastroesophageal reflux disease. 7. Hyperlipidemia. PLAN: 1. Keep in ICU. 2. Recs per Cardiology. We switched over to Cardizem. 3. Continue antibiotics as ordered. 4. Discharge planning for later this week. PIPO DR: JAYME/leeroy TID: [id number] CC: MERARY COTE MD
[2021-07-04] MEDS ORDERED: ATORVASTATIN CALCIUM 10 MG TABLET. PO SCH (21:00)
[2021-07-05] VITALS (8 sets, daily range): BP systolic 128–155; BP diastolic 53–75
[2021-07-05] MEDS: VANCOMYCIN 1 GM in IV NORMAL SALINE 250ML 250 ML IV SCH ×2 (00:51→13:00)
[2021-07-05] MEDS ORDERED: AMIODARONE 150 MG/3 ML VIAL IVP ONE (02:32)
[2021-07-05] MEDS: PIPERACILLIN/TAZOBACTAM 4.5 GM in IV NORMAL SALINE 50ML 50 ML IV SCH ×3 (03:52→16:49)
[2021-07-05] MEDS: AMIODARONE 450 MG in IV DEXTROSE 5% 250 ML IV PRN (05:05)
[2021-07-05] MEDS ORDERED: ASPIRIN ENTERIC COATED 81 MG TABLET.DR. PO SCH (08:00)
[2021-07-05] MEDS: LACTOBACILLUS RHAMNOSUS GG 1 CAPSULE. PO SCH (08:06)
[2021-07-05] MEDS: AMIODARONE HCL 200 MG TABLET. PO SCH (08:07)
[2021-07-05] MEDS: ACETAMINOPHEN 325 MG TABLET PO PRN ×2 (08:07→14:37)
[2021-07-05] MEDS: PANTOPRAZOLE 40 MG TABLET. PO SCH (08:08)
[2021-07-05 15:40] LABS: THYROID STIM HORMONE (TSH) 1.139 uIU/mL (0.358-3.740)
--- NOTE | 2021-07-05 16:07 | DS ---
DATE OF DISCHARGE: 07/05/2021 ATTENDING PHYSICIAN: Dr. Garcia. FINAL DISCHARGE DIAGNOSES: 1. Cellulitis and mastitis, left breast. 2. History of breast cancer with recent radiation therapy. 3. Supraventricular tachycardia with rapid ventricular rate, controlled. 4. Underlying depression. 5. Dementia. 6. Gastroesophageal reflux disease. 7. Hyperlipidemia. HISTORY AND PHYSICAL: The patient is a 75-year-old female who has breast cancer, currently getting radiation therapy. She has mastitis. She had altered mentation. She was admitted with infection. PHYSICAL EXAMINATION: Please see the dictated note. PERTINENT LABORATORY AND X-RAY STUDIES: Blood cultures were negative at 72 hours. Admission hemoglobin was 13.8 grams, white count 16,000, repeated was down to 13,000. Chemistry panel showed a creatinine of 1 mg percent, potassium 3.3 mEq. This will be followed as an outpatient. Nonfasting blood sugar 109, transaminase and liver functions were normal. COURSE IN THE HOSPITAL: The patient was admitted. She was started on empiric Zosyn and vancomycin with improvement of her skin infection. She was calm. She was pleasantly confused, but was doing much better. She did have breakthrough episodes of narrow complex tachycardia. Cardiology consultation was obtained. They initially had her on various doses of Cardizem digitalis and eventually they added amiodarone. By the fourth hospital day, her heart rate was stable, converted to sinus in the 70s-80s per minute. Therefore, she was ready to go home. I felt this was reasonable. I contacted her common law . I recommended 7 more days of Augmentin 875 mg p.o. b.i.d., in addition amiodarone 200 mg b.i.d. for 7 days and then 200 mg p.o. daily thereafter; Cardizem CD 240 p.o. daily. In addition, she should continue her Cymbalta 60 mg daily, Neurontin 900 mg b.i.d., hydrocodone p.r.n. pain, Namenda, omeprazole, and Zocor, doses unchanged. She was discharged then from our hospital in stable condition with explicit drug and followup care. Total discharge time [address]: Nano TID: [id number]
--- NOTE | 2021-07-05 21:24 | PDOC ---
DATE OF SERVICE: DOS: DATE: 07/05/21 TIME: 21:20 SUBJECTIVE: Patient seen and examined OBJECTIVE: Problems: Problems Medical Problems: (1) Breast cancer Status: Acute (2) Delirium due to medical condition with behavioral disturbance Status: Acute (3) Sepsis due to cellulitis Status: Acute Vital Signs/I&O: Vital Signs Date Time Temp Pulse Resp B/P (MAP) Pulse Ox O2 Delivery O2 Flow Rate FiO2 07/05/21 16:00 Room Air 07/05/21 15:45 99.0 66 12 155/70 (98) 100 07/04/21 08:30 2.0 I & O 07/04/21 07/04/21 07/05/21 14:59 22:59 06:59 Intake Total 340 ml 443 ml 959 ml Balance 340 ml 443 ml 959 ml Physical Exam: Chest: clear to A and P CV: RRR Abdomen:soft ASSESSMENT: 1. Sepsis. Resolved on present medications. 2. Atrial fibrillation. Converted to sinus. Continue present medications. ECHO with intact LV function. Will call for follow up. 3. Breast cancer. S/P radiation treatment. Followed by oncology. Justification of Admission: Justification of Admission: Justification of Admission Dx: Yes BETITO VELEZ MD Jul 05, 2021 21:24
== END 2021-07-05 18:56 | disposition home or self-care (01) | DRG 872 ==
LOC: ER 10:19 → ICU 21:21
PROVIDERS: ADMIT Internal Medicine; ATTEND Internal Medicine
DX: A41.9 Sepsis, unspecified organism (principal); F05 Delirium due to known physiological condition; E87.2 Acidosis; I47.1 Supraventricular tachycardia; K21.9 Gastro-esophageal reflux disease without esophagitis; G62.9 Polyneuropathy, unspecified; J45.909 Unspecified asthma, uncomplicated; C50.919 Malignant neoplasm of unspecified site of unspecified female breast; E78.5 Hyperlipidemia, unspecified; F03.90 Unspecified dementia, unspecified severity, without behavioral disturbance, psychotic disturbance, mood disturbance, and anxiety; F32.9 Major depressive disorder, single episode, unspecified; I48.91 Unspecified atrial fibrillation; M19.90 Unspecified osteoarthritis, unspecified site; M79.7 Fibromyalgia; D69.6 Thrombocytopenia, unspecified; Z92.3 Personal history of irradiation; Z79.899 Other long term (current) drug therapy; Z88.8 Allergy status to other drugs, medicaments and biological substances; Z20.822 Contact with and (suspected) exposure to COVID-19
CPT/HCPCS: 36415; 70450; 71045; 80053; 80061; 80202; 81001; 82140; 82803; 82947; 83605; 83735; 84443; 84484; 85007; 85025; 85610; 85730; 87040; 87426; 93005; 93306; 96365; 96366; 96375; J0153; J0282; J1160; J1630; J2543; J3010; J3370; J3490; J7040; J7050; U0003; 97116; 97530; 99285-25; J7030

== ENCOUNTER → 2021-12-03 | Outpatient (CLI) | payer MEDICARE, BC ==
[2021-07-05 15:45] VITALS: BP 155/70
[~2021-12-03] MED LIST: DULO60CA7 PO; FLUO40CA9 PO; GABA-586 PO; HYDR-2763 PO; MEMA10TA PO; METO25TA2 PO; OMEP10CA4 PO; SIMV20TA18 PO
--- NOTE | 2021-12-03 13:50 | RAD ---
DXA BONE DENSITY AXIAL History: Reason: CA / Spl. Instructions: / History: Postmenopausal Comparison: None. TECHNIQUE: Dual energy x-ray absorptiometry of the lumbar spine and right hip was performed. T-score of average bone mineral density based was calculated based on standard deviations above or below the expected young adult normal value. Diagnostic definitions were established by the [employer] z[employer]. FINDINGS: The average bone mineral density associated with L1-L4 is 1.098 g/cm^2, corresponding with a T-score of -0.7. The average total bone mineral density associated with right hip is 0.808 g/cm^2, corresponding with a T-score of -1.2. Refer to the worksheets for full detail. IMPRESSION: 1. Osteopenia. Average bone mineral density yields a T-score between -1.0 and -2.5. Fracture risk is increased. Electronically signed by: Phu Steel DO (12/03/2021 1:47 PM) [id number]
== END ==
LOC: DXRAD 11:04
PROVIDERS: ATTEND Internal Medicine Hematology & Oncology
DX: C50.412 Malignant neoplasm of upper-outer quadrant of left female breast (principal); M85.88 Other specified disorders of bone density and structure, other site; Z79.811 Long term (current) use of aromatase inhibitors
CPT/HCPCS: 77080

== ENCOUNTER 2022-03-03 22:54 | Emergency (ER) | payer MEDICARE, BC ==
[~2022-03-03] VITALS: Ht 170.2 cm; Wt 61.9 kg
--- NOTE | 2022-03-03 22:57 | PHYS DOC ---
Past History Past Medical History: Arthritis, Cancer, Dementia Past Surgical History: Other Additional Past Surgical Histo: left breast Alcohol Use: None General Adult HPI: HPI: " I fell on this past Thursday...I was marley ROCK.. Barrett,,, is a [place] terrier,,, I got up and then fell again as is trying to get the door open . the door got away from me and I fell hit both my knees and my head... I guess he thinks I am little more confused today and wanted me checked out...".. t Pt. " She has the confusion episodes .. more tonight.. but now she seems okay... " ( Life partner). Patient is a 76 year old female who presents with of history fall and head injury on Thursday. Patient had no loss of consciousness but did have a contusion and abrasion to right forehead. Patient also has contusions to both knees. Distal neurovascular seems to be intact. Is able to do straight leg lift. Range of motion increases pain in both knees. Patient does have a past significant history of dementia, primary carcinoma left breast status post radiation therapy and chemo. Patient has history of GERD, hyperlipidemia, cellulitis, supraventricular tachycardia, depression,. Patient had breast surgery at [facility] By Dr. Swartz approximately 6 months ago. Pt. follows with Dr. Gutierrez as primary. Review of Systems: Review of Systems: Constitutional: Denies fever or chills Eyes: Denies change in visual acuity HENT: Denies nasal congestion or sore throat. Complains of head injury Respiratory: Denies cough or shortness of breath Cardiovascular: Denies chest pain or edema GI: Denies abdominal pain, nausea, vomiting, bloody stools or diarrhea : Denies dysuria Musculoskeletal: Complaints of bilateral knee pain Integument: Denies rash Neurologic: Denies headache, focal weakness or sensory changes Endocrine: Denies polyuria or polydipsia Lymphatic: Denies swollen glands Psychiatric: History of depression, dementia, anxiety Family History: Family History: Noncontributory to presentation Current Medications: Current Meds: See nursing for home meds Allergies: Allergies: Allergies Coded Allergies Type Severity Reaction Last Updated Verified oxycodone Allergy Unknown 07/02/21 Yes Physical Exam: PE: Constitutional: No acute distress, non-toxic appearance. [] HENT: Normocephalic, contusion and abrasion right forehead, bilateral external ears normal, oropharynx moist, no oral exudates, nose normal. [] Eyes: PERRLA, EOMI, conjunctiva scleritis right nasal sclera, no discharge. [] Neck: Normal range of motion, no tenderness, supple, no stridor. [] Cardiovascular:Heart rate regular rhythm, no murmur [] PMI to left. Surgical scars left breast. Lungs & Thorax: Bilateral breath sounds apex on auscultation [] Scars Abdomen: Bowel sounds normal, soft, no tenderness, no masses, no pulsatile masses. [Mild distention Skin: Warm, dry, no erythema, no rash. Poor turgor Back: No tenderness, no CVA tenderness. [] Extremities: Bilateral knee tenderness, range of motion increases pain in bilateral knees, crepitation, contusion bilateral knees, arthritic changes no cyanosis, no clubbing, no edema. [] Neurologic: Alert and oriented X 3, moves all extremities on request, has distal sensory, no focal deficits noted. [] Psychologic: Affect anxious, judgement normal, mood normal. [] EKG: EKG: My interpretation EKG shows a sinus rhythm at 63 bpm. No acute morphology. Does have leftward axis and a bundle branch block. With no findings of acute STEMI of contralateral changes. Time of EKG is 12 minutes [] Radiology/Procedures: Radiology/Procedures: [[address] [address] IMAGING REPORT Signed PATIENT: JAZMÍN FRANKLIN ACCOUNT: [id number] : 1945 LOCATION: ER AGE: 76 SEX: F EXAM STATUS: REG ER ORD. PHYSICIAN: MIRTA SEO MD REASON: fall PROCEDURE: KNEE BILAT 4V AP chest x-ray HISTORY: Fall injury. Comparison chest x-ray July 02, 2021 FINDINGS: Heart size normal. Mediastinal silhouette normal. No pneumothorax, pulmonary opacities or pleural effusions. Thin linear atelectasis or scarring right lung base new from the prior study. Bones are unremarkable. IMPRESSION: No acute process. Bilateral knee x-rays 4 views each HISTORY: Fall, pain. FINDINGS: Bilateral knees demonstrate meniscal chondrocalcinosis as well as joint capsule calcifications posteriorly. No fracture. No dislocation. No arthritic change. No bone lesion. IMPRESSION: No acute osseous injury. Electronically signed by: Christopher Muñoz MD (03/04/2022 2:00 AM) [facility] DICTATED AND SIGNED BY: CHRISTOPHER MUÑOZ MD DATE: 03/04/22156 CC: MIRTA SEO MD; MERARY GUTIERREZ MD ~ [address] [address] IMAGING REPORT Signed PATIENT: JAZMÍN FRANKLIN ACCOUNT: [id number] : 1945 LOCATION: ER AGE: 76 SEX: F EXAM STATUS: REG ER ORD. PHYSICIAN: MIRTA SEO MD REASON: fall PROCEDURE: PORTABLE CHEST 1V AP chest x-ray HISTORY: Fall injury. Comparison chest x-ray July 02, 2021 FINDINGS: Heart size normal. Mediastinal silhouette normal. No pneumothorax, pulmonary opacities or pleural effusions. Thin linear atelectasis or scarring r ight lung base new from the prior study. Bones are unremarkable. IMPRESSION: No acute process. Bilateral knee x-rays 4 views each HISTORY: Fall, pain. FINDINGS: Bilateral knees demonstrate meniscal chondrocalcinosis as well as joint capsule calcifications posteriorly. No fracture. No dislocation. No arthritic change. No bone lesion. IMPRESSION: No acute osseous injury. Electronically signed by: Christopher Muñoz MD (03/04/2022 2:00 AM) [facility] DICTATED AND SIGNED BY: CHRISTOPHER MUÑOZ MD DATE: 03/04/22156 CC: MIRTA SEO MD; MERARY GUTIERREZ MD ~ ][address] [address] IMAGING REPORT Signed PATIENT: JAZMÍN FRANKLIN ACCOUNT: [id number] : 1945 LOCATION: ER AGE: 76 SEX: F EXAM STATUS: REG ER ORD. PHYSICIAN: MIRTA SEO MD REASON: head trauma ,fall sat. , confusion PROCEDURE: CT HEAD AND CERVICAL SPINE WO CT head without contrast. CT cervical spine without contrast PQRS statement: CT scans at this facility use dose reduction including either automated exposure control, iterative reconstructions, and /or weight based radiation dosing via mA and kV modification when appropriate to reduce radiation dose to as low as reasonably achievable. HISTORY: Fall, head trauma, altered mental status, confusion, pain. CT head findings: Generalized brain atrophy. Ventriculomegaly may be due to brain atrophy or normal pressure hydrocephalus. No obstructive hydrocephalus evident. Cerebral white matter hypoattenuation most likely changes of chronic microvascular ischemic disease. No intracranial hemorrhage, mass or infarction. Orbits, mastoids and bones are unremarkable. IMPRESSION: No acute intracranial CT abnormality. CT cervical spine findings: Craniocervical junction is intact. Cervical vertebral body height and alignment intact. 2 mm anterolisthesis of C7 on T1. No fracture of the cervical spine. Multilevel cervical disc height loss and disc osteophyte and uncovertebral facet spurring with spinal canal and neural foraminal stenoses. Lung apices and paraspinal tissues are unremarkable. IMPRESSION: No acute osseous injury of the cervical spine. Cervical disc disease as described above. Electronically signed by: Christopher Muñoz MD (03/04/2022 12:48 AM) [facility] DICTATED AND SIGNED BY: CHRISTOPHER MUÑOZ MD DATE: 03/04/2241 CC: MIRTA SEO MD; MERARY GUTIERREZ MD ~ Heart Score: C/O Chest Pain: N/A Risk Factors: Risk Factors: DM, Current or recent (<one month) smoker, HTN, HLP, family history of CAD, obesity. Risk Scores: Score 0 - 3: 2.5% MACE over next 6 weeks - Discharge Home Score 4 - 6: 20.3% MACE over next 6 weeks - Admit for Clinical Observation Score 7 - 10: 72.7% MACE over next 6 weeks - Early Invasive Strategies Course & Med Decision Making: Course & Med Decision Making Pertinent Labs and Imaging studies reviewed. (See chart for details) Patient take Tylenol or Profen for discomfort. Apply Polysporin to abrasions 4 times a day until healed. Consider use of walker. Follow-up with Dr. [place]. Return if any concern. Impression: 1. Trip and fall 2. Head injury 3. History of dementia 4. History of arthritis 5. Contusions 6. Abrasions 7. Hx of Dementia [] Dragon Disclaimer: Dragon Disclaimer: This electronic medical record was generated, in whole or in part, using a voice recognition dictation system. Departure Departure: Referrals: MERARY GUTIERREZ MD (PCP) [place] Disclaimer This chart was dictated in whole or in part using Voice Recognition software in a busy, high-work load, and often noisy Emergency Department environment. It may contain unintended and wholly unrecognized errors or omissions. Dragon Disclaimer This chart was dictated in whole or in part using Voice Recognition software in a busy, high-work load, and often noisy Emergency Department environment. It may contain unintended and wholly unrecognized errors or omissions. MIRTA SEO MD Mar 03, 2022 22:57
[2022-03-04] MEDS ORDERED: IV RINGERS SOLUTION,LACTATED 1,000 ML IV SCH
--- NOTE | 2022-03-04 00:30 | EKG ---
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
[2022-03-04 00:48] LABS: CLARITY,URINE CLEAR; COLOR,URINE YELLOW
[2022-03-04 00:49] LABS: BACTERIA,URINE 0 /HPF (0-FEW); BARBITURATES NEG (NEG); BENZODIAZEPINES NEG (NEG); CANNABINOIDS NEG (NEG); COCAINE NEG (NEG); GLUCOSE,URINE NEG (NEG); METHADONE NEG (NEG); NITRITE,URINE NEG (NEG); OPIATES NEG (NEG); PHENCYCLIDINE NEG (NEG); RBC,URINE 0 /HPF (0-2); SQUAMOUS EPITHELIAL CELL,UR FEW /LPF; UROBILINOGEN,URINE 0.2 mg/dL (0.2 mg/dL)
--- NOTE | 2022-03-04 00:50 | RAD ---
CT head without contrast. CT cervical spine without contrast PQRS statement: CT scans at this facility use dose reduction including either automated exposure cont rol, iterative reconstructions, and /or weight based radiation dosing via mA and kV modification when appropriate to reduce radiation dose to as low as reasonably achievable. HISTORY: Fall, head trauma, altered mental status, confusion, pain. CT head findings: Generalized brain atrophy. Ventriculomegaly may be due to brain atrophy or normal p ressure hydrocephalus. No obstructive hydrocephalus evident. Cerebral white matter hypoattenuation mo st likely changes of chronic microvascular ischemic disease. No intracranial hemorrhage, mass or infa rction. Orbits, mastoids and bones are unremarkable. IMPRESSION: No acute intracranial CT abnormality. CT cervical spine findings: Craniocervical junction is intact. Cervical vertebral body height and ali gnment intact. 2 mm anterolisthesis of C7 on T1. No fracture of the cervical spine. Multilevel cervic al disc height loss and disc osteophyte and uncovertebral facet spurring with spinal canal and neural foraminal stenoses. Lung apices and paraspinal tissues are unremarkable. IMPRESSION: No acute osseous injury of the cervical spine. Cervical disc disease as described above. Electronically signed by: Federico Muñoz MD (03/04/2022 12:48 AM) [facility]
[2022-03-04 00:52] LABS: AMPHETAMINE/METHAMPHETAMINE NEG (NEG)
[2022-03-04 01:14] LABS: BASO # 0.1 x10^3/uL (0.0-0.2); BASO % 1 % (0-3); EOS # 0.2 x10^3/uL (0.0-0.7); EOS % 3 % (0-3); HEMATOCRIT 38.5 % (36.0-47.0); HEMOGLOBIN 12.9 g/dL (12.0-15.5); LYMPH # 1.7 x10^3/uL (1.0-4.8); LYMPH % 26 % (24-48); MEAN CORPUSCULAR HEMOGLOBIN 30 pg (25-35); MEAN CORPUSCULAR HGB CONC 34 g/dL (31-37); MEAN CORPUSCULAR VOLUME 90 fL (79-100); MONO # 0.5 x10^3/uL (0.0-1.1); MONO % 8 % (0-9); NEUT # 4.1 x10^3uL (1.8-7.7); NEUT % 62 % (31-73); PLATELET COUNT 155 x10^3/uL (140-400); RED BLOOD COUNT 4.27 x10^6/uL (3.50-5.40); RED CELL DISTRIBUTION WIDTH 14.7 % (11.5-14.5); WHITE BLOOD COUNT 6.6 x10^3/uL (4.0-11.0)
[2022-03-04 01:25] LABS: CALCIUM 9.1 mg/dL (8.5-10.1); CREATININE 1.2 mg/dL (0.6-1.0); GFR 43.6; POTASSIUM 4.1 mmol/L (3.5-5.1)
[2022-03-04 01:38] LABS: ALBUMIN 3.5 g/dL (3.4-5.0); DIRECT BILIRUBIN 0.1 mg/dL (0.0-0.2); MAGNESIUM 2.2 mg/dL (1.8-2.4); TOTAL BILIRUBIN 0.3 mg/dL (0.2-1.0); TOTAL PROTEIN 6.7 g/dL (6.4-8.2)
[2022-03-04 01:40] VITALS: BP 122/88
--- NOTE | 2022-03-04 02:03 | RAD ---
AP chest x-ray HISTORY: Fall injury. Comparison chest x-ray July 02, 2021 FINDINGS: Heart size normal. Mediastinal silhouette normal. No pneumothorax, pulmonary opacities or p leural effusions. Thin linear atelectasis or scarring right lung base new from the prior study. Bones are unremarkable. IMPRESSION: No acute process. Bilateral knee x-rays 4 views each HISTORY: Fall, pain. FINDINGS: Bilateral knees demonstrate meniscal chondrocalcinosis as well as joint capsule calcificati ons posteriorly. No fracture. No dislocation. No arthritic change. No bone lesion. IMPRESSION: No acute osseous injury. Electronically signed by: Federico Muñoz MD (03/04/2022 2:00 AM) [facility]
== END 2022-03-04 02:53 | disposition home or self-care (01) ==
LOC: ER 22:54
DX: S00.83XA Contusion of other part of head, initial encounter (principal); S80.02XA Contusion of left knee, initial encounter; S80.01XA Contusion of right knee, initial encounter; F03.90 Unspecified dementia, unspecified severity, without behavioral disturbance, psychotic disturbance, mood disturbance, and anxiety; M19.90 Unspecified osteoarthritis, unspecified site; K21.9 Gastro-esophageal reflux disease without esophagitis; E78.5 Hyperlipidemia, unspecified; Z88.5 Allergy status to narcotic agent; W18.39XA Other fall on same level, initial encounter; Y93.89 Activity, other specified; Y92.89 Other specified places as the place of occurrence of the external cause; Y99.8 Other external cause status
CPT/HCPCS: 99285; J7120; 36415; 70450; 71045; 72125; 80048; 80076; 80307; 81001; 82550; 83690; 83735; 83880; 84443; 84484; 85025; 85379; 85610; 85730; 93005; 96360; 96361; G0480; 73564-50

== ENCOUNTER 2022-03-05 16:15 | Observation (INO) | payer MEDICARE, BC ==
[~2022-03-05] VITALS: Ht 170.2 cm; Wt 59.3 kg
--- NOTE | 2022-03-05 16:39 | PHYS DOC ---
Past History Past Medical History: Arthritis, Cancer, Dementia Additional Past Medical Histor: Alzheimers (YANELIS CHI MD) Past Surgical History: Cancer Surgery Additional Past Surgical Histo: left breast (YANELIS CHI MD) Alcohol Use: Rarely (YANELIS CHI MD) General Adult EDM: Chief Complaint: ALTERED MENTAL STATUS HPI: HPI: Patient is a 76-year-old female with history of Alzheimer's. She presents with increasing confusion for the last couple of days. There is a history of fall several days ago. The patient had a CT at that time which was negative. She has not seemed to return to her normal self though and her confusion is worse to day. She has not had a fever. No complaints of chest pain or trouble breathing per the patient's significant other. She has not had any abdominal pain, vomiting or urinary symptoms. (YANELIS CHI MD) Review of Systems: Review of Systems: Review of systems not obtainable secondary to patient's Alzheimer's (YANELIS CHI MD) Allergies: Allergies: Allergies Coded Allergies Type Severity Reaction Last Updated Verified oxycodone Allergy Unknown 07/02/21 Yes (YANELIS CHI MD) Physical Exam: PE: Constitutional: Well developed, well nourished, no acute distress, non-toxic appearance. HENT: Patient has a bruise on the right side of her forehead which appears to be several days old, bilateral external ears normal, mucosa moist, nose normal. Eyes: EOMI, conjunctiva normal, no discharge. Neck: Normal range of motion, supple, no stridor, no meningeal signs. Cardiovascular: Regular rate and rhythm Lungs & Thorax: Bilateral breath sounds clear to auscultation Abdomen: Soft, no tenderness or obvious masses Skin: Warm, dry, no erythema, no rash. Extremities: No tenderness, no cyanosis, no clubbing, ROM intact, no edema. Neurologic: Alert but somewhat disoriented, normal motor function, normal sensory function, no focal deficits noted. Psychologic: Patient is agitated and anxious. (YANELIS CHI MD) EKG: EKG: [] (YANELIS CHI MD) Radiology/Procedures: Radiology/Procedures: [] (YANELIS CHI MD) Heart Score: Risk Factors: Risk Factors: DM, Current or recent (<one month) smoker, HTN, HLP, family history of CAD, obesity. Risk Scores: Score 0 - 3: 2.5% MACE over next 6 weeks - Discharge Home Score 4 - 6: 20.3% MACE over next 6 weeks - Admit for Clinical Observation Score 7 - 10: 72.7% MACE over next 6 weeks - Early Invasive Strategies (YANELIS CHI MD) C/O Chest Pain: No (CLINTON GRIGGS MD) Course & Med Decision Making: Course & Med Decision Making Pertinent Labs and Imaging studies reviewed. (See chart for details) [] (YANELIS CHI MD) Course & Med Decision Making Patient care handed off to me at checkout pending labs and imaging. Patient vital signs nonconcerning. Laboratory analysis not concerning. Urinalysis not concerning. Imaging not concerning. Patient unfortunately has Alzheimer's disease in the late stages and is having some confusion over the last couple of days per . states he is really worried about her because he is having a hard time with her at home as she has been emotional, yelling and screaming and she has had some falls. Denies any recent traumas, travels, illnesses, fevers, chest pain, shortness of breath, abdominal pain, nausea, vomiting, diarrhea. Denies any known ill contacts. States has been taking all of her medications as prescribed. States she has been getting worse though over the last couple of months as well. Discussed findings with and patient. Advised admission to [facility] for continued evaluation, treatment and observation and discussions about admission to the [facility] psych unit and/or long-term care at home as has been is having a tough time taking care of her by himself at home and may be unsafe. (CLINTON GRIGGS MD) Dragon Disclaimer: Dragon Disclaimer: This electronic medical record was generated, in whole or in part, using a voice recognition dictation system. (YANELIS CHI MD) Departure Departure: Impression: Primary Impression: Alzheimer's dementia Additional Impression: Irritability and anger Disposition: 09 ADMITTED INPATIENT Condition: STABLE Referrals: MERARY COTE MD (PCP) YANELIS CHI MD Mar 05, 2022 16:39 CLINTON GRIGGS MD Mar 05, 2022 19:54
--- NOTE | 2022-03-05 16:55 | EKG ---
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
--- NOTE | 2022-03-05 17:25 | RAD ---
CT HEAD/BRAIN WO History: Altered mental status Comparison: 03/03/2022, 07/01/2021 Technique: Noncontrast CT imaging was performed of the head. Findings: No acute intracranial hemorrhage. There is redemonstrated lateral predominant ventriculomegaly and mi ld cortical atrophy. No herniation or mass. Hypointense attenuation of the periventricular and deep w jakob matter may represent chronic microvascular ischemic change versus transependymal flow CSF. No ev idence of acute territorial infarction. Postsurgical changes of the lenses. The orbits are otherwise unremarkable. Imaged paranasal sinuses a nd mastoid air cells are clear. The scalp and calvarium are unremarkable. Impression: 1. No acute intracranial abnormality. 2. Chronic lateral ventriculomegaly. Correlate for process such as normal pressure hydrocephalus. ----- Exposure: One or more of the following individualized dose reduction techniques were utilized for thi s examination: 1. Automated exposure control 2. Adjustment of the mA and/or kV according to patient size 3. Use of iterative reconstruction technique. Electronically signed by: Claudio Puckett MD (03/05/2022 5:23 PM) [facility]
[2022-03-05 17:27] LABS: BASO # 0.1 x10^3/uL (0.0-0.2); BASO % 1 % (0-3); EOS # 0.1 x10^3/uL (0.0-0.7); EOS % 1 % (0-3); HEMOGLOBIN 14.8 g/dL (12.0-15.5); LYMPH # 1.5 x10^3/uL (1.0-4.8); LYMPH % 22 % (24-48); MEAN CORPUSCULAR HEMOGLOBIN 30 pg (25-35); MEAN CORPUSCULAR HGB CONC 34 g/dL (31-37); MEAN CORPUSCULAR VOLUME 90 fL (79-100); MONO # 0.6 x10^3/uL (0.0-1.1); MONO % 9 % (0-9); NEUT # 4.7 x10^3uL (1.8-7.7); NEUT % 68 % (31-73); PLATELET COUNT 179 x10^3/uL (140-400); RED BLOOD COUNT 4.87 x10^6/uL (3.50-5.40); RED CELL DISTRIBUTION WIDTH 14.6 % (11.5-14.5); WHITE BLOOD COUNT 6.9 x10^3/uL (4.0-11.0)
--- NOTE | 2022-03-05 17:35 | RAD ---
XR CHEST 1V History: Reason: ams / Spl. Instructions: / History: Comparison: March 04, 2020 Findings: Hyperinflation. Diffuse reticular interstitial thickening, similar compared to prior. No consolidatio n or pleural effusion. No pneumothorax. Glenohumeral DJD. Impression: 1. Hyperinflation with chronic reticular interstitial thickening. Electronically signed by: Phu Steel DO (03/05/2022 5:33 PM) [facility]
[2022-03-05 17:38] LABS: INFLUENZA A PATIENT NEGATIVE (NEGATIVE); INFLUENZA B PATIENT NEGATIVE (NEGATIVE)
[2022-03-05 17:53] LABS: CALCIUM 9.7 mg/dL (8.5-10.1); CREATININE 1.1 mg/dL (0.6-1.0); GFR 48.2; POTASSIUM 3.8 mmol/L (3.5-5.1)
[2022-03-05 17:59] LABS: ALBUMIN/GLOBULIN RATIO 1.3 (1.0-1.7); MAGNESIUM 2.1 mg/dL (1.8-2.4); TOTAL BILIRUBIN 0.6 mg/dL (0.2-1.0); TOTAL PROTEIN 7.2 g/dL (6.4-8.2)
[2022-03-05 19:35] LABS: BARBITURATES NEG (NEG); BENZODIAZEPINES NEG (NEG); CANNABINOIDS NEG (NEG); COCAINE NEG (NEG); METHADONE NEG (NEG); OPIATES NEG (NEG); PHENCYCLIDINE NEG (NEG)
[2022-03-05 19:46] LABS: CLARITY,URINE CLEAR; COLOR,URINE YELLOW; GLUCOSE,URINE NEG (NEG)
[2022-03-05 19:47] LABS: AMPHETAMINE/METHAMPHETAMINE NEG (NEG); BACTERIA,URINE FEW /HPF (0-FEW); NITRITE,URINE NEG (NEG); RBC,URINE OCC /HPF (0-2); SQUAMOUS EPITHELIAL CELL,UR OCC /LPF; UROBILINOGEN,URINE 0.2 mg/dL (0.2 mg/dL); WBC,URINE OCC /HPF (0-4)
[2022-03-05] MEDS ORDERED: HALOPERIDOL LACT 5 MG/ML VIAL. IM ONE (21:15)
[2022-03-05 22:49] VITALS: BP 173/72
[2022-03-06 05:36] VITALS: BP 124/73
[2022-03-06 06:16] LABS: BASO # 0.1 x10^3/uL (0.0-0.2); BASO % 1 % (0-3); EOS # 0.1 x10^3/uL (0.0-0.7); EOS % 3 % (0-3); HEMATOCRIT 41.4 % (36.0-47.0); HEMOGLOBIN 13.9 g/dL (12.0-15.5); LYMPH # 1.4 x10^3/uL (1.0-4.8); LYMPH % 26 % (24-48); MEAN CORPUSCULAR HEMOGLOBIN 31 pg (25-35); MEAN CORPUSCULAR HGB CONC 34 g/dL (31-37); MEAN CORPUSCULAR VOLUME 91 fL (79-100); MONO # 0.6 x10^3/uL (0.0-1.1); MONO % 10 % (0-9); NEUT # 3.4 x10^3uL (1.8-7.7); NEUT % 61 % (31-73); PLATELET COUNT 160 x10^3/uL (140-400); RED BLOOD COUNT 4.55 x10^6/uL (3.50-5.40); RED CELL DISTRIBUTION WIDTH 14.7 % (11.5-14.5); WHITE BLOOD COUNT 5.6 x10^3/uL (4.0-11.0)
[2022-03-06 06:27] LABS: CALCIUM 9.5 mg/dL (8.5-10.1); CREATININE 1.3 mg/dL (0.6-1.0); GFR 39.7; POTASSIUM 3.4 mmol/L (3.5-5.1)
[2022-03-06 10:46] VITALS: BP 147/85
[2022-03-06 15:17] VITALS: BP 157/92
[2022-03-06] MEDS ORDERED: ALBU2.5V8 IH (15:51)
[2022-03-06] MEDS ORDERED: ASCO250T29 PO (15:51)
[2022-03-06] MEDS ORDERED: DONE10TA7 PO (15:51)
[2022-03-06] MEDS ORDERED: ANAS1TAB47 PO (15:51)
[2022-03-06] MEDS ORDERED: CHOL100013 PO (15:51)
[2022-03-06] MEDS ORDERED: ELLIPTA INH (15:51)
[2022-03-06] MEDS ORDERED: PRED2.5T PO (15:51)
[2022-03-06] MEDS ORDERED: AMIO200T54 PO (15:51)
[2022-03-06] MEDS ORDERED: MECO10005 PO (15:51)
--- NOTE | 2022-03-06 16:22 | HP ---
DATE OF SERVICE: 03/06/2022 ADMIT DATE: 03/05/2022 HISTORY OF PRESENT ILLNESS: The patient is a 76-year-old female patient who was brought by her significant other yesterday to the Emergency Room of [facility] with worsening confusion that has been going on for the last couple of days. She also has history of fall several days ago. The patient had a CT scan at that time, which was negative. She has not seemed to return to her normal self though and her confusion has been worsening. She has had no fever, not any physical complaints. She was extensively investigated in the Emergency Room and has had lab work and imaging studies. Her lab works were essentially unremarkable and her CBC and chemistry was essentially normal for her age. Her ammonia was 40. Urinalysis was essentially unremarkable and toxic screen was negative, and her coronavirus by rapid antigen testing was negative and influenza A and B were negative. She did have also another CT scan of the head, which showed no acute intracranial abnormality and she has chronic lateral ventriculomegaly, correlate ____, but she has normal pressure hydrocephalus and her chest x-ray was basically unremarkable other than hyperinflation with chronic reticular interstitial thickening as her significant other was unable to take care of her given that she is very confused, agitated, restless. The patient was admitted to medical floor with plan to admit [facility]. The patient herself was adamant that her is not and she does not know the man that brought her here. I actually spoke with her primary care physician, Dr. Db Gutierrez in [place] and he confirmed that the only person they know is her significant other and that her has been for a while. PAST MEDICAL HISTORY: Significant for hypertension, nephrolithiasis, hyperlipidemia. She also has COPD, atrophic vaginitis and chronic neck pain, fibromyalgia. PAST SURGICAL HISTORY: Left breast lumpectomy for which she underwent stereotactic breast biopsy. She has received radiation therapy after that but no chemotherapy. ALLERGIES: SHE IS ALLERGIC TO OXYCODONE. MEDICATIONS: She is currently on the following medications: She is on simvastatin 20 mg at bedtime. She is on metoprolol succinate 25 mg once a day, hydrocodone/APAP 7.5/325 one tablet twice a day, gabapentin 300 mg twice a day, duloxetine 60 mg daily, fluoxetine 40 mg daily. She is on Namenda 10 mg twice a day and omeprazole 10 mg daily. SOCIAL HISTORY: She apparently lives with her significant other. 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 She does not smoke. She apparently has no children. FAMILY HISTORY: Her father at age of 97, has diabetes mellitus. Mother at age of 85, has had colon cancer. Her sister has colon cancer and osteoporosis. PHYSICAL EXAMINATION: GENERAL: On arrival to the Emergency Room, she looked well, slightly pale, not jaundiced, cyanosed, no lymphadenopathy, no thyromegaly, no jugular venous distention. No lower limb edema. VITAL SIGNS: Her heart rate was 82, blood pressure 142/80, temperature 97.8, respiratory rate was 16 and oxygen saturation was 96%. HEAD, EYES, EARS, NOSE, AND THROAT: Showed normocephalic, atraumatic. NECK: Supple. HEART: Showed normal first and second heart sounds. No gallop, rub or murmur. CHEST: Clear to auscultation, no crepitation or rhonchi. ABDOMEN: Distended, soft, nontender. NEUROLOGIC: She is demented, but without any obvious lateralizing sign. She is able to ambulate without assistance or assistive devices. LABORATORY WORK: On admission showed a white cell count of 6.9, hemoglobin 14.8, hematocrit 44, MCV 90 and platelet count of 179,000 with manual differential shows 68% polymorphs, ____ lymphocytes and 9% monocytes. Her serum sodium was 140, potassium 3.8, chloride 103, bicarbonate 31, anion gap of 6, BUN 17, creatinine 1.1. Estimated GFR was 48 mL per minute, glucose 120, calcium was 9.7, magnesium was 2.1. Total bilirubin, alkaline phosphatase were normal. AST, ALT were normal. Her ammonia was 40. Troponin I high sensitivity was 9. Total protein 7.2. Albumin was 4. Urinalysis essentially unremarkable and toxic screen was negative and her influenza A and B were negative and coronavirus by rapid antigen testing was negative. ASSESSMENT AND PLAN: The patient was admitted to [address] [place] [address] for further evaluation and to consult the psychiatrist. She was appropriate to be admitted to [facility] for inpatient psychiatric stabilization. SHAE/ART/SAUMYA DR: Jerry TID: [id number]
--- NOTE | 2022-03-06 22:27 | DS ---
DATE OF DISCHARGE: 03/06/2022 DISCHARGE/TRANSFER SUMMARY HOSPITAL COURSE: The patient is a 76-year-old female patient who was brought by her significant other with worsening confusion and agitation. She has fallen multiple times and the patient's memory has dramatically deteriorated and he is unable to take care of her. She is adamant that her is not , although he is for years now, and she does not recognize her significant other that has been living with her for years also. In any case, she was extensively investigated in the Emergency Room and all her lab works, chest x-ray, urinalysis, toxic screen, are all within normal range and a decision was made to transfer her to [facility] for inpatient psychiatric stabilization. PHYSICAL EXAMINATION: GENERAL: When I saw her today, she looked well and was clearly in no apparent respiratory distress. VITAL SIGNS: Her heart rate was 77, blood pressure was 157/92, temperature was 98, respiratory rate was 20 and oxygen saturation was 96% on room air. HEAD, EYES, EARS, NOSE, AND THROAT: Normocephalic, atraumatic. NECK: Supple. HEART: Showed normal first and second heart sounds. No gallop or murmur. CHEST: Clear to auscultation, no crepitation or rhonchi. ABDOMEN: Distended, soft, nontender. NEUROLOGIC: She is demented without any obvious lateralizing sign. LABORATORY DATA: This morning showed a white cell count 5.6, hemoglobin 13.9, hematocrit 41, MCV 91, and platelet count of 160,000 with normal manual differential. Her chemistry showed a serum sodium 143, potassium 3.4, chloride 105, bicarbonate 32, anion gap of 6, BUN 21, creatinine 1.3. Estimated GFR was 39 mL per minute. Her glucose was 92 and calcium was 9.5. Urinalysis essentially unremarkable. Toxic screen was negative and her coronavirus PCR was negative. Influenza A and B were negative. Chest x-ray was clear. CT scan of the head showed ventriculomegaly, but otherwise, no acute intracranial abnormality. DISCHARGE MEDICATIONS: The patient was transferred to [facility] unit to continue on the following medications: Simvastatin 20 mg at bedtime, metoprolol succinate 25 mg once a day, hydrocodone/APAP 7.5/325 one tablet twice a day, gabapentin 900 mg twice a day, duloxetine 60 mg daily, fluoxetine 40 mg daily, Namenda 10 mg twice a day, omeprazole 10 mg once a day. She is also on anastrozole for her breast cancer, Anoro Ellipta 1 puff once a day, amiodarone 200 mg once a day, Aricept 10 mg once a day. FINAL DISCHARGE DIAGNOSES: 1. Worsening dementia. 2. Chronic obstructive pulmonary disease. 3. Mild recurrent major depression. 4. Chronic musculoskeletal disease. 5. Hypertension. 6. Fibromyalgia. 7. Nephrolithiasis. 8. Hyperlipidemia. MARY LOU/BRIAN DR: Jerry TID: [id number]
== END 2022-03-06 18:28 ==
LOC: ER 16:15 → INTOOBSV 20:01 → ER HOLD 20:01 → 1 SOUTH 22:41
PROVIDERS: ADMIT Internal Medicine; ATTEND Internal Medicine
DX: R41.0 Disorientation, unspecified (principal); Z20.822 Contact with and (suspected) exposure to COVID-19; F02.80 Dementia in other diseases classified elsewhere, unspecified severity, without behavioral disturbance, psychotic disturbance, mood disturbance, and anxiety; I10 Essential (primary) hypertension; J44.9 Chronic obstructive pulmonary disease, unspecified; E78.5 Hyperlipidemia, unspecified; F33.0 Major depressive disorder, recurrent, mild; G30.9 Alzheimer's disease, unspecified; G93.89 Other specified disorders of brain; M79.7 Fibromyalgia; N20.0 Calculus of kidney; R45.4 Irritability and anger; R29.6 Repeated falls; Z87.442 Personal history of urinary calculi; Z92.3 Personal history of irradiation; Z79.899 Other long term (current) drug therapy; Z98.890 Other specified postprocedural states
CPT/HCPCS: 96372; 96374; 99285; G0378; J1630; J2060; 36415; 70450; 71045; 72125; 80048; 80053; 80076; 80307; 81001; 82140; 82550; 83690; 83735; 83880; 84443; 84484; 85025; 85379; 85610; 85730; 87428; 93005; G0379; G0480; U0003; 73564-50; 97530; 97535

== ENCOUNTER 2022-03-06 17:59 | Inpatient (IN) | payer MEDICARE, BC ==
[~2022-03-06] VITALS: Ht 170.2 cm; Wt 63.7 kg
[~2022-03-06 17:59] MED LIST changes: +ALBU2.5V8 IH; +AMIO200T54 PO; +ANAS1TAB47 PO; +ASCO250T29 PO; +CHOL100013 PO; +DONE10TA7 PO; +ELLIPTA INH; +MECO10005 PO; +PRED2.5T PO
[2022-03-06 18:47] VITALS: BP 129/80
[2022-03-06] MEDS ORDERED: HYDROcodone/APAP 7.5/325MG 1 TAB TABLET PO PRN (20:00)
[2022-03-06] MEDS ORDERED: METHYL SALICYLATE/MENTHOL TOPICAL OINTMENT 57GM TUBE. TP PRN (20:30)
[2022-03-06] MEDS ORDERED: MAG HYDROX/AL HYDROX/SIMETH 30 ML ORAL.SUSP PO PRN (20:30)
[2022-03-06] MEDS: DONEPEZIL HCL 10 MG TABLET PO SCH ×2 (20:55→21:00)
[2022-03-06] MEDS: SIMVASTATIN 20 MG TABLET PO SCH ×2 (20:55→21:00)
[2022-03-06] MEDS: GABAPENTIN 300 MG CAPSULE. PO SCH ×2 (20:56→21:00)
[2022-03-06] MEDS: MEMANTINE 10 MG TABLET. PO SCH ×2 (20:56→21:00)
[2022-03-06] MEDS: AMIODARONE HCL 200 MG TABLET. PO SCH ×2 (20:56→21:00)
--- NOTE | 2022-03-06 21:29 | PDOC ---
Exam Note: Avtar Note: Please also refer to the separate dictated note~for this date of service dictated separately.~Patient seen individually. Discussed the patient with Nursing staff reviewed the chart.~Reviewed interim history and current functioning. Reviewed vital signs,~Labs/ Radiology~and current medications noted below. Continue current treatment with the changes noted in the dictated addendum note Assessment: Vital Signs/I&O: Vital Signs Date Time Temp Pulse Resp B/P (MAP) Pulse Ox O2 Delivery O2 Flow Rate FiO2 03/06/22 20:56 78 129/80 03/06/22 18:47 18 Room Air Current Medications: Meds: Current Medications Medications (Trade) Dose Ordered Sig/Katelynn Route PRN Reason Start Time Stop Time Status Last Admin Dose Admin Albuterol Sulfate (Ventolin Hfa Inhaler) 2 puff PRN Q4HRS PRN INH wheezing 03/06/22 20:30 Amiodarone HCl (Cordarone) 200 mg BID PO 03/06/22 21:00 03/06/22 20:56 Anastrozole (Arimidex) 1 mg DAILY PO 03/07/22 09:00 Donepezil HCl (Aricept) 10 mg HS PO 03/06/22 21:00 03/06/22 20:55 Duloxetine HCl (Cymbalta) 60 mg DAILY PO 03/07/22 09:00 Gabapentin (Neurontin) 900 mg BID PO 03/06/22 21:00 03/06/22 20:56 Acetaminophen/ Hydrocodone Bitart (Lortab 7.5/325) 1 tab PRN BID PRN PO PAIN 03/06/22 20:00 Memantine (Namenda) 10 mg BID PO 03/06/22 21:00 03/06/22 20:56 Simvastatin (Zocor) 20 mg QHS PO 03/06/22 21:00 03/06/22 20:55 Ascorbic Acid (Vitamin C) 250 mg DAILY PO 03/07/22 09:00 Vitamin D (Vitamin D3) 1,000 unit DAILY PO 03/07/22 09:00 Fluoxetine HCl (PROzac) 40 mg DAILY PO 03/07/22 09:00 Cyanocobalamin (Vitamin B-12) 1,000 mcg DAILY PO 03/07/22 09:00 Prednisone (Prednisone) 5 mg DAILY PO 03/07/22 09:00 Fluticasone/ Vilanterol (Breo Ellipta 100-25 Mcg) 1 puff DAILY INH 03/07/22 09:00 Acetaminophen (Tylenol) 650 mg PRN Q6HRS PRN PO MILD PAIN / TEMP > 100.3'F 03/06/22 20:30 Multi-Ingredient Ointment (Analgesic [place]) 1 kirk PRN QID PRN TP MUSCLE PAIN 03/06/22 20:30 Al Hydroxide/Mg Hydroxide (Mylanta Plus Xs) 15 ml PRN AFTMEALHC PRN PO DYSPEPSIA 03/06/22 20:30 Magnesium Hydroxide (Milk Of Magnesia) 2,400 mg PRN QHS PRN PO CONSTIPATION 03/06/22 20:30 Current Medications Medications (Trade) Dose Ordered Sig/Katelynn Route PRN Reason Start Time Stop Time Status Last Admin Dose Admin Amiodarone HCl (Cordarone) 200 mg BID PO 03/06/22 21:00 03/06/22 20:56 Donepezil HCl (Aricept) 10 mg HS PO 03/06/22 21:00 03/06/22 20:55 Gabapentin (Neurontin) 900 mg BID PO 03/06/22 21:00 03/06/22 20:56 Memantine (Namenda) 10 mg BID PO 03/06/22 21:00 03/06/22 20:56 Simvastatin (Zocor) 20 mg QHS PO 03/06/22 21:00 03/06/22 20:55 I have reviewed the current psychotropics carefully including drug interactions. Risk benefit ratio favors no change other than as noted in my dictated progress note. Diagnosis: Problems: (1) Psychotic disorder (2) Major neurocognitive disorder (3) Dementia, vascular, with delusions (4) Dementia, vascular, with depression (5) Anxiety disorder, unspecified (6) Impulse control disorder, unspecified JOSE RUIZ MD Mar 06, 2022 21:29
--- NOTE | 2022-03-06 21:32 | EKG ---
[address] [address] Test Date: 2022-03-05 Test Time: 19:41:07 Pat Name: JAZMÍN FRANKLIN Department: Room: [address] [place] [address] Gender: F Director Of Instruction: MARY : 1945 Requested By: JOSE RUIZ Order Number: [id number] Reading MD: Measurements Intervals [place] Rate: 94 P: 41 WA: 132 QRS: 40 QRSD: 78 T: 36 QT: 372 QTc: 471 Interpretive Statements SINUS RHYTHM QRS(T) CONTOUR ABNORMALITY CONSIDER ANTEROLATERAL MYOCARDIAL DAMAGE POSSIBLY ABNORMAL ECG RI6.01 No previous ECG available for comparison
[2022-03-06 21:36] LABS: ALBUMIN 3.7 g/dL (3.4-5.0); ALBUMIN/GLOBULIN RATIO 1.1 (1.0-1.7); CALCIUM 9.4 mg/dL (8.5-10.1); CREATININE 1.5 mg/dL (0.6-1.0); GFR 33.7; MAGNESIUM 2.1 mg/dL (1.8-2.4); POTASSIUM 3.4 mmol/L (3.5-5.1); TOTAL BILIRUBIN 0.6 mg/dL (0.2-1.0); TOTAL PROTEIN 7.1 g/dL (6.4-8.2)
[2022-03-06 21:39] LABS: BASO # 0.1 x10^3/uL (0.0-0.2); BASO % 1 % (0-3); EOS # 0.1 x10^3/uL (0.0-0.7); EOS % 2 % (0-3); HEMATOCRIT 41.7 % (36.0-47.0); HEMOGLOBIN 14.1 g/dL (12.0-15.5); LYMPH # 1.4 x10^3/uL (1.0-4.8); LYMPH % 21 % (24-48); MEAN CORPUSCULAR HEMOGLOBIN 30 pg (25-35); MEAN CORPUSCULAR HGB CONC 34 g/dL (31-37); MEAN CORPUSCULAR VOLUME 90 fL (79-100); MONO # 0.6 x10^3/uL (0.0-1.1); MONO % 9 % (0-9); NEUT # 4.7 x10^3uL (1.8-7.7); NEUT % 68 % (31-73); PLATELET COUNT 176 x10^3/uL (140-400); RED BLOOD COUNT 4.64 x10^6/uL (3.50-5.40); RED CELL DISTRIBUTION WIDTH 14.8 % (11.5-14.5)
--- NOTE | 2022-03-07 03:22 | HP ---
DATE OF SERVICE: 03/06/2022 ADMIT DATE: 03/06/2022 PSYCHIATRIC ADMISSION HISTORY/EVALUATION This note covers elements not covered in my initial note, 03/05. I met with the patient on the evening of 03/05 for this evaluation. Previously discussed with Maryana Bo, international marketing coordinator, and reviewed information from [address] [place] [address] medical surgical [facility] where the patient was hospitalized from home on account of worsening confusion, delusions and psychosis. We had received a referral from the medical surgical floor, showcase trimmer, Leigh Cade RN requesting evaluation for psychiatric stabilization. CHIEF COMPLAINT: "I live with a man and his mother. They killed him." HISTORY OF PRESENT ILLNESS: Reportedly, the patient lives at home with her significant other and the patient's daughter. Recently, she has appeared more confused, paranoid, delusional, not recognizing her significant other and being belligerent, cursing, unsafe at home, delusional. She has been aggressive to her significant other, does not recognize him. Thinks the staff has murdered her . Behaviors have been deemed dangerous, unmanageable resulting in this referral, having failed outpatient psychiatric interventions. The patient has a history of worsening psychosis, confusion, delusions as noted above. She has had sleep and appetite changes. No active suicidal or homicidal ideation. She does have a history of mood swings. PAST PSYCHIATRIC HISTORY: As above. MEDICAL HISTORY: Status post breast surgery for CA breast. AMBULATION: Independent. DIET: Regular. CODE STATUS: Full code. ALLERGIES: OXYCODONE. ACCU-CHEKS: None. CURRENT PSYCHOTROPICS: Aricept 10 mg daily, Neurontin 300 mg b.i.d., Cymbalta 60 mg a day, fluoxetine 40 mg a day, Namenda 10 mg b.i.d. She was on Haldol IM at [address] [place] [address] and Ativan IM which was stopped. FAMILY HISTORY: Noncontributory. SOCIAL HISTORY: As noted above. No physical, sexual, elder abuse history is noted. She is not known to be a perpetrator. No history of alcohol or drug abuse. 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 REVIEW OF SYSTEMS: No CV, , pulmonary, eye system symptoms on review. MENTAL STATUS EXAM: The patient was seen individually on 03/06. She is alert, oriented to herself, situation. Said she was admitted here earlier this afternoon, which is accurate. She made a couple of guesses and then said the year was 2021, month was February, president was President Mayra and before him was President Jose. She was able to do 2 steps on serial sevens, 93 and 86 and then said the next number was 81. Speech is coherent. Abstraction fair. Computation impaired. Language function intact. Mood and affect remain anxious, labile. No active suicidal or homicidal ideation. LABORATORY DATA: Reviewed. IMPRESSION: Psychotic disorder, unspecified; major neurocognitive disorder; early Alzheimer, vascular with delusion; depression; anxiety disorder, unspecified; impulse control disorder, unspecified. PLAN: Admit to Geropsychiatry Unit at [facility]. I will see the patient daily individually from a psychiatric standpoint, medical followup, Dr. Burkett/Dr. Garcia. Continue the patient on her current psychotropics, observe baseline and adjust as clinically indicated. She has some bumps and bruises on her forehead. We will do a CT head if one has not been done on . ESTIMATED LENGTH OF STAY: 10-12 days. DISPOSITION PLANS: Possibly back home or more higher level of care depending on the stabilization here. CAROL/ALEJANDRA/KEISHA DR: CAROL/leeroy TID: [id number]
[2022-03-07 06:24] VITALS: BP 107/67
[2022-03-07] MEDS: CHOLECALCIFEROL (VITAMIN D3) 1,000 UNIT TABLET PO SCH (09:40)
[2022-03-07] MEDS: ASCORBIC ACID 500 MG TABLET PO SCH (09:41)
[2022-03-07] MEDS: GABAPENTIN 300 MG CAPSULE. PO SCH ×3 (09:42→20:49)
[2022-03-07] MEDS: AMIODARONE HCL 200 MG TABLET. PO SCH ×2 (09:42→20:49)
[2022-03-07] MEDS: DULoxetine HCL 60 MG CAPSULE.DR PO SCH (09:43)
[2022-03-07] MEDS: ANASTROZOLE 1 MG TABLET PO SCH (09:43)
[2022-03-07] MEDS: CYANOCOBALAMIN (VITAMIN B-12) 1,000 MCG TABLET. PO SCH (09:43)
[2022-03-07] MEDS: FLUTICASONE/VILANTEROL 100/25 INHALER. INH SCH (09:43)
[2022-03-07] MEDS: predniSONE 5 MG TABLET PO SCH (09:43)
[2022-03-07] MEDS: MEMANTINE 10 MG TABLET. PO SCH ×2 (09:43→20:49)
[2022-03-07] MEDS: ALBUTEROL SULFATE 8GM INHALER. INH PRN (09:43)
[2022-03-07] MEDS ORDERED: POTASSIUM CHLORIDE 20 MEQ TABLET.ER. PO SCH ×2 (12:30→14:00)
[2022-03-07 12:52] LABS: CALCIUM 9.7 mg/dL (8.5-10.1); CREATININE 1.4 mg/dL (0.6-1.0); GFR 36.5; POTASSIUM 3.7 mmol/L (3.5-5.1)
[2022-03-07 15:27] VITALS: BP 138/74
[2022-03-07 15:41] LABS: CHOLESTEROL/HDL RATIO 3.1; THYROID STIM HORMONE (TSH) 5.93 uIU/mL (0.358-3.740)
[2022-03-07 19:08] LABS: THYROXINE 8.3 ug/dL (4.5-12.0)
[2022-03-07] MEDS: DONEPEZIL HCL 10 MG TABLET PO SCH (20:49)
[2022-03-07] MEDS: SIMVASTATIN 20 MG TABLET PO SCH (20:50)
--- NOTE | 2022-03-07 21:47 | PDOC ---
Exam Note: Avtar Note: Please also refer to the separate dictated note~for this date of service dictated separately.~Patient seen individually. Discussed the patient with Nursing staff reviewed the chart.~Reviewed interim history and current functioning. Reviewed vital signs,~Labs/ Radiology~and current medications noted below. Continue current treatment with the changes noted in the dictated addendum note Assessment: Vital Signs/I&O: Vital Signs Date Time Temp Pulse Resp B/P (MAP) Pulse Ox O2 Delivery O2 Flow Rate FiO2 03/07/22 20:49 78 138/74 03/07/22 15:27 97.4 20 97 Room Air I & O 03/06/22 03/06/22 03/07/22 15:00 23:00 07:00 Intake Total 360 ml Balance 360 ml Labs: Laboratory Tests Test 03/07/22 12:39 Sodium Level 141 mmol/L (136-145) Potassium Level 3.7 mmol/L (3.5-5.1) Chloride Level 102 mmol/L (98-107) Carbon Dioxide Level 31 mmol/L (21-32) Anion Gap 8 (6-14) Blood Urea Nitrogen 24 mg/dL (7-20) H Creatinine 1.4 mg/dL (0.6-1.0) H Estimated GFR (Cockcroft-Gault) 36.5 Glucose Level 142 mg/dL (70-99) H Calcium Level 9.7 mg/dL (8.5-10.1) Creatine Kinase 126 U/L (26-192) Current Medications: Meds: Laboratory Tests Test 03/07/22 12:39 Sodium Level 141 mmol/L Potassium Level 3.7 mmol/L Chloride Level 102 mmol/L Carbon Dioxide Level 31 mmol/L Anion Gap 8 Blood Urea Nitrogen 24 mg/dL Creatinine 1.4 mg/dL Estimated GFR (Cockcroft-Gault) 36.5 Glucose Level 142 mg/dL Calcium Level 9.7 mg/dL Creatine Kinase 126 U/L Current Medications Medications (Trade) Dose Ordered Sig/Katelynn Route PRN Reason Start Time Stop Time Status Last Admin Dose Admin Albuterol Sulfate (Ventolin Hfa Inhaler) 2 puff PRN Q4HRS PRN INH wheezing 03/06/22 20:30 03/07/22 09:43 Amiodarone HCl (Cordarone) 200 mg BID PO 03/06/22 21:00 03/07/22 20:49 Anastrozole (Arimidex) 1 mg DAILY PO 03/07/22 09:00 03/07/22 09:43 Donepezil HCl (Aricept) 10 mg HS PO 03/06/22 21:00 03/07/22 20:49 Duloxetine HCl (Cymbalta) 60 mg DAILY PO 03/07/22 09:00 03/07/22 09:43 Gabapentin (Neurontin) 900 mg BID PO 03/06/22 21:00 03/07/22 09:27 DC Acetaminophen/ Hydrocodone Bitart (Lortab 7.5/325) 1 tab PRN BID PRN PO PAIN 03/06/22 20:00 Memantine (Namenda) 10 mg BID PO 03/06/22 21:00 03/07/22 20:49 Simvastatin (Zocor) 20 mg QHS PO 03/06/22 21:00 03/07/22 20:50 Ascorbic Acid (Vitamin C) 250 mg DAILY PO 03/07/22 09:00 03/07/22 09:41 Vitamin D (Vitamin D3) 1,000 unit DAILY PO 03/07/22 09:00 03/07/22 09:40 Fluoxetine HCl (PROzac) 40 mg DAILY PO 03/07/22 09:00 03/07/22 18:03 DC 03/07/22 09:50 Cyanocobalamin (Vitamin B-12) 1,000 mcg DAILY PO 03/07/22 09:00 03/07/22 09:43 Prednisone (Prednisone) 5 mg DAILY PO 03/07/22 09:00 03/07/22 09:43 Fluticasone/ Vilanterol (Breo Ellipta 100-25 Mcg) 1 puff DAILY INH 03/07/22 09:00 03/07/22 09:43 Acetaminophen (Tylenol) 650 mg PRN Q6HRS PRN PO MILD PAIN / TEMP > 100.3'F 03/06/22 20:30 Multi-Ingredient Ointment (Analgesic [place]) 1 kirk PRN QID PRN TP MUSCLE PAIN 03/06/22 20:30 Al Hydroxide/Mg Hydroxide (Mylanta Plus Xs) 15 ml PRN AFTMEALHC PRN PO DYSPEPSIA 03/06/22 20:30 Magnesium Hydroxide (Milk Of Magnesia) 2,400 mg PRN QHS PRN PO CONSTIPATION 03/06/22 20:30 Gabapentin (Neurontin) 300 mg TID PO 03/07/22 09:30 03/07/22 20:49 Potassium Chloride (Klor-Con) 20 meq TID PO 03/07/22 14:00 03/07/22 12:28 DC Potassium Chloride (Klor-Con) 20 meq DAILY PO 03/07/22 12:30 Current Medications Medications (Trade) Dose Ordered Sig/Katelynn Route PRN Reason Start Time Stop Time Status Last Admin Dose Admin Anastrozole (Arimidex) 1 mg DAILY PO 03/07/22 09:00 03/07/22 09:43 Duloxetine HCl (Cymbalta) 60 mg DAILY PO 03/07/22 09:00 03/07/22 09:43 Ascorbic Acid (Vitamin C) 250 mg DAILY PO 03/07/22 09:00 03/07/22 09:41 Vitamin D (Vitamin D3) 1,000 unit DAILY PO 03/07/22 09:00 03/07/22 09:40 Fluoxetine HCl (PROzac) 40 mg DAILY PO 03/07/22 09:00 03/07/22 18:03 DC 03/07/22 09:50 Cyanocobalamin (Vitamin B-12) 1,000 mcg DAILY PO 03/07/22 09:00 03/07/22 09:43 Prednisone (Prednisone) 5 mg DAILY PO 03/07/22 09:00 03/07/22 09:43 Fluticasone/ Vilanterol (Breo Ellipta 100-25 Mcg) 1 puff DAILY INH 03/07/22 09:00 03/07/22 09:43 Gabapentin (Neurontin) 300 mg TID PO 03/07/22 09:30 03/07/22 20:49 I have reviewed the current psychotropics carefully including drug interactions. Risk benefit ratio favors no change other than as noted in my dictated progress note. Diagnosis: Problems: (1) Psychotic disorder (2) Impulse control disorder, unspecified (3) Anxiety disorder, unspecified (4) Dementia, vascular, with depression (5) Dementia, vascular, with delusions (6) Major neurocognitive disorder JOSE RUIZ MD Mar 07, 2022 21:47
[2022-03-07] MEDS: ACETAMINOPHEN 325 MG TABLET PO PRN (22:51)
[2022-03-07 23:14] LABS: HEMOGLOBIN A1C 6.7 % (4.8-5.6)
--- NOTE | 2022-03-08 01:26 | CONS ---
DATE OF CONSULTATION: 03/07/2022 REASON FOR CONSULTATION: Medical management. HISTORY OF PRESENT ILLNESS: The patient is a 76-year-old female patient who was originally admitted to [address] [place] [address] for medical stabilization on account of worsening confusion, delusion, and psychosis. Apparently, the patient lives at home with her significant other and apparently recently seemed to be more confused, paranoid, delusional, not recognizing her significant other and being belligerent, cursing, unsafe at home, delusional. She has been aggressive to her significant other, does not recognize him. In fact, yesterday, she was adamant that her is still alive and that her significant other is a crook that stole all her stuff. She was extensively investigated, and all her lab work and imaging studies were all within normal range, and therefore, a decision was made to admit her to a [facility] for inpatient psychiatric stabilization. In fact, she seemed to be more aware or recognized that her has about 7 years ago and that she lives with this man and she is actually very thankful today to him for what he does to her. She denied any medical problems; however, I did speak with Dr. Gutierrez, her primary care physician in [place]. PAST MEDICAL HISTORY: She does have the list of multiple medical problems including chronic obstructive pulmonary disease, hypertension, nephrolithiasis, hyperlipidemia, chronic back pain, atrophic vaginitis and fibromyalgia. PAST SURGICAL HISTORY: Significant for left breast lumpectomy for which she underwent a stereotactic breast biopsy and was treated with 16 sessions of radiotherapy. She continued to be on anastrozole, Arimidex 1 mg tablet once a day. ALLERGIES: She is allergic to OXYCODONE. MEDICATIONS: She is currently on the following medications: She is on gabapentin 300 mg 3 times a day, Breo Ellipta 1 puff once a day, prednisone 5 mg once a day, cyanocobalamin 1000 mcg once a day, fluoxetine 40 mg daily, vitamin D 1000 international units once a day, ascorbic acid 250 mg once a day, duloxetine 60 mg daily, anastrozole 1 mg daily, simvastatin 20 mg at bedtime, Namenda 10 mg twice a day, Aricept 10 mg at bedtime, amiodarone 200 mg twice a day, magnesium hydroxide 30 mL p.o. daily p.r.n. for constipation, Mylanta 15 mL after meals and as needed, acetaminophen 650 mg every 4 hours as well as hydrocodone/APAP 7.5/325 one tablet twice a day. REVIEW OF SYSTEMS: As per history of present illness. FAMILY HISTORY: Her father at age of 97, had diabetes mellitus. Mother at age of 85, had colon cancer. Her sister has colon cancer and osteoporosis. SOCIAL HISTORY: She apparently about 7 years ago. She lives with her significant other. 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 She does not have children of her own. She does not smoke, drink alcohol or recreational drugs. PHYSICAL EXAMINATION: GENERAL: When I examined her today, she was sitting comfortably on the edge of the bed, in no apparent distress. She is pale, but not jaundiced, cyanosed or thyromegaly. No jugular venous distention. No limb edema. VITAL SIGNS: Her heart rate was 77, blood pressure was 107/67, temperature 97, respiratory rate 20, and oxygen saturation was 96%. HEAD, EYES, EARS, NOSE, AND THROAT: Normocephalic, atraumatic. NECK: Supple. HEART: Normal first and second heart sounds. No gallop, rub or murmur. CHEST: Shows central trachea, equal bilateral expansion, air entry, vesicular breath sounds. No crepitation or rhonchi. ABDOMEN: Distended, soft, nontender. NEUROLOGIC: She is demented without any obvious lateralizing sign. All her cranial nerves are intact. She moves extremities without difficulty. She ambulates without assistance or assistive devices. LABORATORY DATA: Showed a white cell count 7000, hemoglobin 14, hematocrit 42, MCV 90 and platelet count of 176,000. Her chemistry showed a serum sodium 139, potassium 3.4, chloride 102, bicarbonate 30, anion gap of 7, BUN 25, creatinine 1.5. Estimated GFR was 53 mL per minute. Her glucose 143, calcium was 9.4, magnesium was 2.1. Total bilirubin and alkaline phosphatase were normal. AST, ALT slightly elevated. Her total protein 7.1, albumin was 3.7. Urinalysis was essentially unremarkable. Toxic screen was negative. Her coronavirus by PCR was negative, and her influenza A and B were negative. ASSESSMENT AND PLAN: In summary, this is a 76-year-old female patient who was admitted on account of being more confused, paranoid, delusional, not recognizing her significant other and being very belligerent, cursing and aggressive. She has a multitude of medical problems including COPD, hypertension, hyperlipidemia, nephrolithiasis, chronic back pain and neck pain as well as fibromyalgia. Her lab work seemed to be all within acceptable range except hypokalemia, for which I started her on potassium supplement. However, her kidney function for some reason is steadily worsening. In fact, her creatinine has risen from 1.1 to 1.5 over the last 24 hours and her BUN also has risen from 17 to 25. She is not on any nephrotoxic medication neither she on any diuretics. I will probably cut down the potassium only to maybe once a day and arrange for her to scan her bladder to make sure that she is not retaining urine. Thank you, Dr. Dash, for allowing me to participate in the care of this patient. [place] DR: Jerry TID: [id number]
[2022-03-08 05:23] VITALS: BP 100/58
--- NOTE | 2022-03-08 08:25 | PDOC ---
Exam Note: Avtar Note: This note is a late entry for 03/07/2022 covers elements not covered in my initial note. Subjective: The patient was reviewed at treatment team meeting individually in the morning on 03/07/2022 with Janelle Stokes, Maryana Rudd, and Brittany Snell (director of social services), Mell, activity therapy, and Lucia GONZALEZ, discussed and reviewed the chart. The patient slept 5-1/2 hours previous night. The patients significant other Ed joined the lengthy treatment team meeting. Per nursing report the patient knew this morning that she was at [place]. She had forehead abrasion from a fall at home. Ed described at great length that she has been more forgetful for the past many months but for the past one week it has been much worse and she has had visits to the ER, extensive workup including CT head was negative. She has fairly significant education in her past including three Masters level courses. She was seen by Dr. Masters, neurologist diagnosed with early dementia in the past reportedly and we will get those records from [facility]. Review of Systems: No CV, , pulmonary, eye, ENT system symptoms on review. Mental Status Exam: Patient is oriented to herself and situation. Speech coherent, has some latency. Abstraction fair. Computation impaired. Language function intact. Attention span short. Mood and affect somewhat withdrawn. Laboratory Data: Reviewed. Impression: Psychotic disorder unspecified. Major neurocognitive disorder, Alzheimer, vascular with delusion, depression. Anxiety disorder unspecified. Impulse control disorder unspecified. Plan: Reviewed history from Ed indicated that there were times when the patient was quite well oriented and other times she would be quite delusional, confused. She is on a combination of Duloxetine and Fluoxetine and we will stop the Fluoxetine for now to avoid serotonergic syndrome. Maintain Aricept 10mg a day, gabapentin 300 mg b.i.d., Cymbalta 60 mg a day, Namenda 10 mg b.i.d. Consider adding low dose Seroquel but we will observe another day and then decide. Reviewed drug interactions, risk-benefit ratio. Assessment: Vital Signs/I&O: Vital Signs Date Time Temp Pulse Resp B/P (MAP) Pulse Ox O2 Delivery O2 Flow Rate FiO2 03/08/22 05:23 97.2 66 16 100/58 (72) 95 03/07/22 15:27 Room Air I & O 03/07/22 03/07/22 03/08/22 15:00 23:00 07:00 Intake Total 480 ml 360 ml Balance 480 ml 360 ml Labs: Laboratory Tests Test 03/07/22 12:39 Sodium Level 141 mmol/L (136-145) Potassium Level 3.7 mmol/L (3.5-5.1) Chloride Level 102 mmol/L (98-107) Carbon Dioxide Level 31 mmol/L (21-32) Anion Gap 8 (6-14) Blood Urea Nitrogen 24 mg/dL (7-20) H Creatinine 1.4 mg/dL (0.6-1.0) H Estimated GFR (Cockcroft-Gault) 36.5 Glucose Level 142 mg/dL (70-99) H Calcium Level 9.7 mg/dL (8.5-10.1) Creatine Kinase 126 U/L (26-192) Current Medications: Meds: Current Medications Medications (Trade) Dose Ordered Sig/Katelynn Route PRN Reason Start Time Stop Time Status Last Admin Dose Admin Anastrozole (Arimidex) 1 mg DAILY PO 03/07/22 09:00 03/07/22 09:43 Duloxetine HCl (Cymbalta) 60 mg DAILY PO 03/07/22 09:00 03/07/22 09:43 Ascorbic Acid (Vitamin C) 250 mg DAILY PO 03/07/22 09:00 03/07/22 09:41 Vitamin D (Vitamin D3) 1,000 unit DAILY PO 03/07/22 09:00 03/07/22 09:40 Fluoxetine HCl (PROzac) 40 mg DAILY PO 03/07/22 09:00 03/07/22 18:03 DC 03/07/22 09:50 Cyanocobalamin (Vitamin B-12) 1,000 mcg DAILY PO 03/07/22 09:00 03/07/22 09:43 Prednisone (Prednisone) 5 mg DAILY PO 03/07/22 09:00 03/07/22 09:43 Fluticasone/ Vilanterol (Breo Ellipta 100-25 Mcg) 1 puff DAILY INH 03/07/22 09:00 03/07/22 09:43 Gabapentin (Neurontin) 300 mg TID PO 03/07/22 09:30 03/07/22 20:49 I have reviewed the current psychotropics carefully including drug interactions. Risk benefit ratio favors no change other than as noted in my dictated progress note. Diagnosis: Problems: (1) Psychotic disorder (2) Impulse control disorder, unspecified (3) Anxiety disorder, unspecified (4) Dementia, vascular, with depression (5) Dementia, vascular, with delusions (6) Major neurocognitive disorder (7) Dementia in Alzheimer's disease with delusions (8) Dementia in Alzheimer's disease with depression JOSE RUIZ MD Mar 08, 2022 08:25
[2022-03-08] MEDS: AMIODARONE HCL 200 MG TABLET. PO SCH ×2 (09:00→20:41)
[2022-03-08] MEDS: FLUTICASONE/VILANTEROL 100/25 INHALER. INH SCH (09:00)
[2022-03-08] MEDS: CYANOCOBALAMIN (VITAMIN B-12) 1,000 MCG TABLET. PO SCH (09:00)
[2022-03-08] MEDS: ASCORBIC ACID 500 MG TABLET PO SCH (09:00)
[2022-03-08] MEDS: CHOLECALCIFEROL (VITAMIN D3) 1,000 UNIT TABLET PO SCH (09:00)
[2022-03-08] MEDS: GABAPENTIN 300 MG CAPSULE. PO SCH ×3 (09:00→20:42)
[2022-03-08] MEDS: DULoxetine HCL 60 MG CAPSULE.DR PO SCH (09:00)
[2022-03-08] MEDS: MEMANTINE 10 MG TABLET. PO SCH ×2 (09:00→20:42)
[2022-03-08] MEDS: ANASTROZOLE 1 MG TABLET PO SCH (09:00)
[2022-03-08] MEDS: predniSONE 5 MG TABLET PO SCH (09:00)
[2022-03-08] MEDS: MAGNESIUM HYDROXIDE 2,400 MG/30 ML ORAL.SUSP. PO PRN (15:07)
[2022-03-08 16:00] VITALS: BP 146/68
[2022-03-08] MEDS: SIMVASTATIN 20 MG TABLET PO SCH (20:42)
[2022-03-08] MEDS: DONEPEZIL HCL 10 MG TABLET PO SCH (20:42)
--- NOTE | 2022-03-08 22:05 | PDOC ---
Exam Note: Avtar Note: Please also refer to the separate dictated note~for this date of service dictated separately.~Patient seen individually. Discussed the patient with Nursing staff reviewed the chart.~Reviewed interim history and current functioning. Reviewed vital signs,~Labs/ Radiology~and current medications noted below. Continue current treatment with the changes noted in the dictated addendum note Assessment: Vital Signs/I&O: Vital Signs Date Time Temp Pulse Resp B/P (MAP) Pulse Ox O2 Delivery O2 Flow Rate FiO2 03/08/22 20:41 69 146/68 03/08/22 16:00 97.0 18 97 03/07/22 15:27 Room Air I & O 03/07/22 03/07/22 03/08/22 14:59 22:59 06:59 Intake Total 480 ml 360 ml Balance 480 ml 360 ml Current Medications: Meds: Current Medications Medications (Trade) Dose Ordered Sig/Katelynn Route PRN Reason Start Time Stop Time Status Last Admin Dose Admin Albuterol Sulfate (Ventolin Hfa Inhaler) 2 puff PRN Q4HRS PRN INH wheezing 03/06/22 20:30 03/07/22 09:43 Amiodarone HCl (Cordarone) 200 mg BID PO 03/06/22 21:00 03/08/22 20:41 Anastrozole (Arimidex) 1 mg DAILY PO 03/07/22 09:00 03/08/22 09:00 Donepezil HCl (Aricept) 10 mg HS PO 03/06/22 21:00 03/08/22 20:42 Duloxetine HCl (Cymbalta) 60 mg DAILY PO 03/07/22 09:00 03/08/22 09:00 Gabapentin (Neurontin) 900 mg BID PO 03/06/22 21:00 03/07/22 09:27 DC Acetaminophen/ Hydrocodone Bitart (Lortab 7.5/325) 1 tab PRN BID PRN PO PAIN 03/06/22 20:00 Memantine (Namenda) 10 mg BID PO 03/06/22 21:00 03/08/22 20:42 Simvastatin (Zocor) 20 mg QHS PO 03/06/22 21:00 03/08/22 20:42 Ascorbic Acid (Vitamin C) 250 mg DAILY PO 03/07/22 09:00 03/08/22 09:00 Vitamin D (Vitamin D3) 1,000 unit DAILY PO 03/07/22 09:00 03/08/22 09:00 Fluoxetine HCl (PROzac) 40 mg DAILY PO 03/07/22 09:00 03/07/22 18:03 DC 03/07/22 09:50 Cyanocobalamin (Vitamin B-12) 1,000 mcg DAILY PO 03/07/22 09:00 03/08/22 09:00 Prednisone (Prednisone) 5 mg DAILY PO 03/07/22 09:00 03/08/22 09:00 Fluticasone/ Vilanterol (Breo Ellipta 100-25 Mcg) 1 puff DAILY INH 03/07/22 09:00 03/08/22 09:00 Acetaminophen (Tylenol) 650 mg PRN Q6HRS PRN PO MILD PAIN / TEMP > 100.3'F 03/06/22 20:30 03/07/22 22:51 Multi-Ingredient Ointment (Analgesic [place]) 1 kirk PRN QID PRN TP MUSCLE PAIN 03/06/22 20:30 Al Hydroxide/Mg Hydroxide (Mylanta Plus Xs) 15 ml PRN AFTMEALHC PRN PO DYSPEPSIA 03/06/22 20:30 Magnesium Hydroxide (Milk Of Magnesia) 2,400 mg PRN QHS PRN PO CONSTIPATION 03/06/22 20:30 03/08/22 15:07 Gabapentin (Neurontin) 300 mg TID PO 03/07/22 09:30 03/08/22 20:42 Potassium Chloride (Klor-Con) 20 meq TID PO 03/07/22 14:00 03/07/22 12:28 DC Potassium Chloride (Klor-Con) 20 meq DAILY PO 03/07/22 12:30 03/08/22 15:19 DC I have reviewed the current psychotropics carefully including drug interactions. Risk benefit ratio favors no change other than as noted in my dictated progress note. Diagnosis: Problems: (1) Psychotic disorder (2) Impulse control disorder, unspecified (3) Anxiety disorder, unspecified (4) Dementia, vascular, with depression (5) Dementia, vascular, with delusions (6) Major neurocognitive disorder (7) Dementia in Alzheimer's disease with depression (8) Dementia in Alzheimer's disease with delusions JOSE RUIZ MD Mar 08, 2022 22:05
[2022-03-09 06:44] VITALS: BP 157/81
[2022-03-09] MEDS: GABAPENTIN 300 MG CAPSULE. PO SCH ×3 (08:07→21:25)
[2022-03-09] MEDS: DULoxetine HCL 60 MG CAPSULE.DR PO SCH (08:07)
[2022-03-09] MEDS: ASCORBIC ACID 500 MG TABLET PO SCH (08:07)
[2022-03-09] MEDS: MEMANTINE 10 MG TABLET. PO SCH ×2 (08:08→21:25)
[2022-03-09] MEDS: AMIODARONE HCL 200 MG TABLET. PO SCH ×2 (08:08→21:26)
[2022-03-09] MEDS: CHOLECALCIFEROL (VITAMIN D3) 1,000 UNIT TABLET PO SCH (08:08)
[2022-03-09] MEDS: predniSONE 5 MG TABLET PO SCH (08:08)
[2022-03-09] MEDS: CYANOCOBALAMIN (VITAMIN B-12) 1,000 MCG TABLET. PO SCH (08:08)
[2022-03-09] MEDS: ANASTROZOLE 1 MG TABLET PO SCH (08:09)
--- NOTE | 2022-03-09 08:35 | PDOC ---
Exam Note: Avtar Note: This note is a late entry for 03/08/2022 covers elements not covered in my initial note. Subjective: The patient was seen individually on 03/08/2022, discussed and reviewed the chart with Jacob KNOTT. The patient slept 5-1/2 hours previous night. I met with the patient at length in her room. She did have a visit with her boyfriend which seems to go better. Reportedly CT head shows normal pressure hydrocephalus but she has been seen by a neurologist Dr. Masters in the past and we are getting those records. Review of Systems: No CV, , pulmonary, eye, ENT system symptoms on review. Positive for short-term memory deficits. Mental Status Exam: Patient is oriented to herself and situation. Speech coherent has some latency. Abstraction fair. Computation impaired. Language function intact. Attention span short. Mood and affect withdrawn. Laboratory Data: Reviewed. Impression: Psychotic disorder unspecified. Major neurocognitive disorder, Alzheimer, vascular with delusion, depression. Anxiety disorder unspecified. Impulse control disorder unspecified. Plan: Continue current psychotropics Aricept, gabapentin, duloxetine, Namenda. Reviewed drug interactions, risk-benefit ratio. Await Neurology records, may consult Dr. Elise Neurology. Assessment: Vital Signs/I&O: Vital Signs Date Time Temp Pulse Resp B/P (MAP) Pulse Ox O2 Delivery O2 Flow Rate FiO2 03/09/22 08:08 78 157/81 03/09/22 06:44 98.0 18 95 Room Air I & O 03/08/22 03/08/22 03/09/22 15:00 23:00 07:00 Intake Total 500 ml 600 ml Balance 500 ml 600 ml Current Medications: I have reviewed the current psychotropics carefully including drug interactions. Risk benefit ratio favors no change other than as noted in my dictated progress note. Diagnosis: Problems: (1) Psychotic disorder (2) Impulse control disorder, unspecified (3) Anxiety disorder, unspecified (4) Dementia, vascular, with depression (5) Dementia, vascular, with delusions (6) Major neurocognitive disorder (7) Dementia in Alzheimer's disease with depression (8) Dementia in Alzheimer's disease with delusions JOSE RUIZ MD Mar 09, 2022 08:35
[2022-03-09] MEDS: FLUTICASONE/VILANTEROL 100/25 INHALER. INH SCH (09:00)
[2022-03-09 15:56] VITALS: BP 128/71
[2022-03-09] MEDS ORDERED: MEMANTINE 10 MG TABLET. PO SCH (21:00)
[2022-03-09] MEDS ORDERED: DONEPEZIL HCL 10 MG TABLET PO SCH (21:00)
[2022-03-09] MEDS: SIMVASTATIN 20 MG TABLET PO SCH (21:25)
[2022-03-09] MEDS: DONEPEZIL HCL 10 MG TABLET PO SCH (21:26)
[2022-03-09] MEDS: QUEtiapine 25 MG TABLET. PO SCH (21:27)
--- NOTE | 2022-03-09 22:00 | PDOC ---
Exam Note: Avtar Note: Please also refer to the separate dictated note~for this date of service dictated separately.~Patient seen individually. Discussed the patient with Nursing staff reviewed the chart.~Reviewed interim history and current functioning. Reviewed vital signs,~Labs/ Radiology~and current medications noted below. Continue current treatment with the changes noted in the dictated addendum note Assessment: Vital Signs/I&O: Vital Signs Date Time Temp Pulse Resp B/P (MAP) Pulse Ox O2 Delivery O2 Flow Rate FiO2 03/09/22 21:26 76 128/71 03/09/22 15:56 97.5 19 94 03/09/22 06:44 Room Air I & O 03/08/22 03/08/22 03/09/22 15:00 23:00 07:00 Intake Total 500 ml 600 ml Balance 500 ml 600 ml Labs: Laboratory Tests Test 03/09/22 06:00 SARS-CoV-2 (PCR) Not detected (NOT DETECTD) Current Medications: Meds: Laboratory Tests Test 03/09/22 06:00 Coronavirus (COVID-19)(PCR) Not detected Current Medications Medications (Trade) Dose Ordered Sig/Katelynn Route PRN Reason Start Time Stop Time Status Last Admin Dose Admin Albuterol Sulfate (Ventolin Hfa Inhaler) 2 puff PRN Q4HRS PRN INH wheezing 03/06/22 20:30 03/07/22 09:43 Amiodarone HCl (Cordarone) 200 mg BID PO 03/06/22 21:00 03/09/22 21:26 Anastrozole (Arimidex) 1 mg DAILY PO 03/07/22 09:00 03/09/22 08:09 Donepezil HCl (Aricept) 10 mg HS PO 03/06/22 21:00 03/09/22 21:26 Duloxetine HCl (Cymbalta) 60 mg DAILY PO 03/07/22 09:00 03/09/22 21:25 DC 03/09/22 08:07 Gabapentin (Neurontin) 900 mg BID PO 03/06/22 21:00 03/07/22 09:27 DC Acetaminophen/ Hydrocodone Bitart (Lortab 7.5/325) 1 tab PRN BID PRN PO MOD-SEV PAIN 03/06/22 20:00 Memantine (Namenda) 10 mg BID PO 03/06/22 21:00 03/09/22 21:25 Simvastatin (Zocor) 20 mg QHS PO 03/06/22 21:00 03/09/22 21:25 Ascorbic Acid (Vitamin C) 250 mg DAILY PO 03/07/22 09:00 03/09/22 08:07 Vitamin D (Vitamin D3) 1,000 unit DAILY PO 03/07/22 09:00 03/09/22 08:08 Fluoxetine HCl (PROzac) 40 mg DAILY PO 03/07/22 09:00 03/07/22 18:03 DC 03/07/22 09:50 Cyanocobalamin (Vitamin B-12) 1,000 mcg DAILY PO 03/07/22 09:00 03/09/22 08:08 Prednisone (Prednisone) 5 mg DAILY PO 03/07/22 09:00 03/09/22 08:08 Fluticasone/ Vilanterol (Breo Ellipta 100-25 Mcg) 1 puff DAILY INH 03/07/22 09:00 03/09/22 09:00 Acetaminophen (Tylenol) 650 mg PRN Q6HRS PRN PO MILD PAIN / TEMP > 100.3'F 03/06/22 20:30 03/07/22 22:51 Multi-Ingredient Ointment (Analgesic [place]) 1 kirk PRN QID PRN TP MUSCLE PAIN 03/06/22 20:30 Al Hydroxide/Mg Hydroxide (Mylanta Plus Xs) 15 ml PRN AFTMEALHC PRN PO DYSPEPSIA 03/06/22 20:30 Magnesium Hydroxide (Milk Of Magnesia) 2,400 mg PRN QHS PRN PO CONSTIPATION 03/06/22 20:30 03/08/22 15:07 Gabapentin (Neurontin) 300 mg TID PO 03/07/22 09:30 03/09/22 21:25 Potassium Chloride (Klor-Con) 20 meq TID PO 03/07/22 14:00 03/07/22 12:28 DC Potassium Chloride (Klor-Con) 20 meq DAILY PO 03/07/22 12:30 03/08/22 15:19 DC Donepezil HCl (Aricept) 10 mg HS PO 03/09/22 21:00 03/09/22 21:25 DC Memantine (Namenda) 10 mg BID PO 03/09/22 21:00 03/09/22 21:23 DC Sertraline HCl (Zoloft) 25 mg DAILY PO 03/10/22 09:00 03/12/22 15:00 Sertraline HCl (Zoloft) 50 mg DAILY PO 03/13/22 09:00 Quetiapine Fumarate (SEROquel) 12.5 mg HS PO 03/09/22 21:00 03/09/22 21:27 Current Medications Medications (Trade) Dose Ordered Sig/Katelynn Route PRN Reason Start Time Stop Time Status Last Admin Dose Admin Quetiapine Fumarate (SEROquel) 12.5 mg HS PO 03/09/22 21:00 03/09/22 21:27 I have reviewed the current psychotropics carefully including drug interactions. Risk benefit ratio favors no change other than as noted in my dictated progress note. Diagnosis: Problems: (1) Psychotic disorder (2) Impulse control disorder, unspecified (3) Anxiety disorder, unspecified (4) Dementia, vascular, with depression (5) Dementia, vascular, with delusions (6) Major neurocognitive disorder (7) Dementia in Alzheimer's disease with depression (8) Dementia in Alzheimer's disease with delusions JOSE RUIZ MD Mar 09, 2022 22:00
[2022-03-10 06:37] VITALS: BP 136/73
[2022-03-10 07:27] LABS: HEMATOCRIT 38.9 % (36.0-47.0); RED BLOOD COUNT 4.28 x10^6/uL (3.50-5.40); RED CELL DISTRIBUTION WIDTH 14.6 % (11.5-14.5); WHITE BLOOD COUNT 5.8 x10^3/uL (4.0-11.0)
[2022-03-10 07:56] LABS: ALBUMIN 3.3 g/dL (3.4-5.0); ALBUMIN/GLOBULIN RATIO 1.1 (1.0-1.7); CALCIUM 8.9 mg/dL (8.5-10.1); CREATININE 1.1 mg/dL (0.6-1.0); GFR 48.2; POTASSIUM 3.4 mmol/L (3.5-5.1); TOTAL BILIRUBIN 0.5 mg/dL (0.2-1.0); TOTAL PROTEIN 6.3 g/dL (6.4-8.2)
[2022-03-10] MEDS: FLUTICASONE/VILANTEROL 100/25 INHALER. INH SCH (08:28)
[2022-03-10] MEDS: CHOLECALCIFEROL (VITAMIN D3) 1,000 UNIT TABLET PO SCH (08:28)
[2022-03-10] MEDS: CYANOCOBALAMIN (VITAMIN B-12) 1,000 MCG TABLET. PO SCH (08:29)
[2022-03-10] MEDS: AMIODARONE HCL 200 MG TABLET. PO SCH ×2 (08:29→21:31)
[2022-03-10] MEDS: MEMANTINE 10 MG TABLET. PO SCH ×2 (08:29→21:30)
[2022-03-10] MEDS: predniSONE 5 MG TABLET PO SCH (08:29)
[2022-03-10] MEDS: ASCORBIC ACID 500 MG TABLET PO SCH (08:30)
[2022-03-10] MEDS: GABAPENTIN 300 MG CAPSULE. PO SCH ×3 (08:31→21:43)
[2022-03-10] MEDS: ANASTROZOLE 1 MG TABLET PO SCH (08:33)
[2022-03-10] MEDS: SERTRALINE 25 MG TABLET. PO SCH (08:34)
--- NOTE | 2022-03-10 09:40 | PDOC ---
Exam Note: Avtar Note: This note is a late entry for 03/09/2022 covers elements not covered in my initial note. Subjective: The patient was seen individually on 03/09/2022, discussed and reviewed the chart with Isa KNOTT. The patient slept 4-1/2 hours previous night. We will clarify the patients psychotropics. We will restart Aricept 10 mg a day, Namenda 10 mg b.i.d. and instead of restarting Cymbalta, we will start Zoloft 25 mg a day for 3 days then 50 mg a day thereafter. She has been paranoid, suspicious. We will add Seroquel 12.5 mg h.s. I met with her outside her room in the hallway. She appeared confused, was helping one of the other patients. Review of Systems: No CV, , pulmonary, eye, ENT system symptoms on review. Mental Status Exam: Patient is oriented to herself and situation. Speech coherent, rapid at times, somewhat loose associations. Abstraction fair. Computation impaired. Language function intact. Mood and affect anxious but improved. Laboratory Data: Reviewed. Impression: Psychotic disorder unspecified. Major neurocognitive disorder, Alzheimer, vascular with delusion, depression. Anxiety disorder unspecified. Impulse control disorder unspecified. Plan: Continue rest psychotropics and as above. Reviewed drug interactions, risk-benefit ratio. Assessment: Vital Signs/I&O: Vital Signs Date Time Temp Pulse Resp B/P (MAP) Pulse Ox O2 Delivery O2 Flow Rate FiO2 03/10/22 08:29 63 136/73 03/10/22 06:37 97.1 18 95 03/09/22 06:44 Room Air I & O 03/09/22 03/09/22 03/10/22 15:00 23:00 07:00 Intake Total 240 ml 560 ml Balance 240 ml 560 ml Labs: Laboratory Tests Test 03/10/22 07:00 White Blood Count 5.8 x10^3/uL (4.0-11.0) Red Blood Count 4.28 x10^6/uL (3.50-5.40) Hemoglobin 13.0 g/dL (12.0-15.5) Hematocrit 38.9 % (36.0-47.0) Mean Corpuscular Volume 91 fL (79-100) Mean Corpuscular Hemoglobin 30 pg (25-35) Mean Corpuscular Hemoglobin Concent 33 g/dL (31-37) Red Cell Distribution Width 14.6 % (11.5-14.5) H Platelet Count 154 x10^3/uL (140-400) Sodium Level 142 mmol/L (136-145) Potassium Level 3.4 mmol/L (3.5-5.1) L Chloride Level 105 mmol/L (98-107) Carbon Dioxide Level 31 mmol/L (21-32) Anion Gap 6 (6-14) Blood Urea Nitrogen 14 mg/dL (7-20) Creatinine 1.1 mg/dL (0.6-1.0) H Estimated GFR (Cockcroft-Gault) 48.2 BUN/Creatinine Ratio 13 (6-20) Glucose Level 104 mg/dL (70-99) H Calcium Level 8.9 mg/dL (8.5-10.1) Total Bilirubin 0.5 mg/dL (0.2-1.0) Aspartate Amino Transferase (AST) 71 U/L (15-37) H Alanine Aminotransferase (ALT) 106 U/L (14-59) H Alkaline Phosphatase 94 U/L (46-116) Total Protein 6.3 g/dL (6.4-8.2) L Albumin 3.3 g/dL (3.4-5.0) L Albumin/Globulin Ratio 1.1 (1.0-1.7) Current Medications: Meds: Current Medications Medications (Trade) Dose Ordered Sig/Katelynn Route PRN Reason Start Time Stop Time Status Last Admin Dose Admin Sertraline HCl (Zoloft) 25 mg DAILY PO 03/10/22 09:00 03/12/22 15:00 03/10/22 08:34 Quetiapine Fumarate (SEROquel) 12.5 mg HS PO 03/09/22 21:00 03/09/22 21:27 I have reviewed the current psychotropics carefully including drug interactions. Risk benefit ratio favors no change other than as noted in my dictated progress note. Diagnosis: Problems: (1) Psychotic disorder (2) Impulse control disorder, unspecified (3) Anxiety disorder, unspecified (4) Dementia, vascular, with depression (5) Dementia, vascular, with delusions (6) Major neurocognitive disorder (7) Dementia in Alzheimer's disease with depression (8) Dementia in Alzheimer's disease with delusions SARA,MAN M MD Mar 10, 2022 09:40
[2022-03-10 16:00] VITALS: BP 136/66
--- NOTE | 2022-03-10 21:25 | PDOC ---
Exam Note: Avtar Note: Please also refer to the separate dictated note~for this date of service dictated separately.~Patient seen individually. Discussed the patient with Nursing staff reviewed the chart.~Reviewed interim history and current functioning. Reviewed vital signs,~Labs/ Radiology~and current medications noted below. Continue current treatment with the changes noted in the dictated addendum note Assessment: Vital Signs/I&O: Vital Signs Date Time Temp Pulse Resp B/P (MAP) Pulse Ox O2 Delivery O2 Flow Rate FiO2 03/10/22 16:00 97.6 67 18 136/66 (89) 97 03/09/22 06:44 Room Air I & O 03/09/22 03/09/22 03/10/22 15:00 23:00 07:00 Intake Total 240 ml 560 ml Balance 240 ml 560 ml Labs: Laboratory Tests Test 03/10/22 07:00 03/10/22 11:00 White Blood Count 5.8 x10^3/uL (4.0-11.0) Red Blood Count 4.28 x10^6/uL (3.50-5.40) Hemoglobin 13.0 g/dL (12.0-15.5) Hematocrit 38.9 % (36.0-47.0) Mean Corpuscular Volume 91 fL (79-100) Mean Corpuscular Hemoglobin 30 pg (25-35) Mean Corpuscular Hemoglobin Concent 33 g/dL (31-37) Red Cell Distribution Width 14.6 % (11.5-14.5) H Platelet Count 154 x10^3/uL (140-400) Sodium Level 142 mmol/L (136-145) Potassium Level 3.4 mmol/L (3.5-5.1) L Chloride Level 105 mmol/L (98-107) Carbon Dioxide Level 31 mmol/L (21-32) Anion Gap 6 (6-14) Blood Urea Nitrogen 14 mg/dL (7-20) Creatinine 1.1 mg/dL (0.6-1.0) H Estimated GFR (Cockcroft-Gault) 48.2 BUN/Creatinine Ratio 13 (6-20) Glucose Level 104 mg/dL (70-99) H Calcium Level 8.9 mg/dL (8.5-10.1) Total Bilirubin 0.5 mg/dL (0.2-1.0) Aspartate Amino Transferase (AST) 71 U/L (15-37) H Alanine Aminotransferase (ALT) 106 U/L (14-59) H Alkaline Phosphatase 94 U/L (46-116) Total Protein 6.3 g/dL (6.4-8.2) L Albumin 3.3 g/dL (3.4-5.0) L Albumin/Globulin Ratio 1.1 (1.0-1.7) POC SARS CoV-2 Antigen Negative (NEGATIVE) Current Medications: Meds: Laboratory Tests Test 03/10/22 07:00 03/10/22 11:00 White Blood Count 5.8 x10^3/uL Red Blood Count 4.28 x10^6/uL Hemoglobin 13.0 g/dL Hematocrit 38.9 % Mean Corpuscular Volume 91 fL Mean Corpuscular Hemoglobin 30 pg Mean Corpuscular Hemoglobin Concent 33 g/dL Red Cell Distribution Width 14.6 % Platelet Count 154 x10^3/uL Sodium Level 142 mmol/L Potassium Level 3.4 mmol/L Chloride Level 105 mmol/L Carbon Dioxide Level 31 mmol/L Anion Gap 6 Blood Urea Nitrogen 14 mg/dL Creatinine 1.1 mg/dL Estimated GFR (Cockcroft-Gault) 48.2 BUN/Creatinine Ratio 13 Glucose Level 104 mg/dL Calcium Level 8.9 mg/dL Total Bilirubin 0.5 mg/dL Aspartate Amino Transf (AST/SGOT) 71 U/L Alanine Aminotransferase (ALT/SGPT) 106 U/L Alkaline Phosphatase 94 U/L Total Protein 6.3 g/dL Albumin 3.3 g/dL Albumin/Globulin Ratio 1.1 POC SARS CoV-2 Antigen Negative Current Medications Medications (Trade) Dose Ordered Sig/Katelynn Route PRN Reason Start Time Stop Time Status Last Admin Dose Admin Albuterol Sulfate (Ventolin Hfa Inhaler) 2 puff PRN Q4HRS PRN INH wheezing 03/06/22 20:30 03/07/22 09:43 Amiodarone HCl (Cordarone) 200 mg BID PO 03/06/22 21:00 03/10/22 08:29 Anastrozole (Arimidex) 1 mg DAILY PO 03/07/22 09:00 03/10/22 08:33 Donepezil HCl (Aricept) 10 mg HS PO 03/06/22 21:00 03/09/22 21:26 Duloxetine HCl (Cymbalta) 60 mg DAILY PO 03/07/22 09:00 03/09/22 21:25 DC 03/09/22 08:07 Gabapentin (Neurontin) 900 mg BID PO 03/06/22 21:00 03/07/22 09:27 DC Acetaminophen/ Hydrocodone Bitart (Lortab 7.5/325) 1 tab PRN BID PRN PO MOD-SEV PAIN 03/06/22 20:00 Memantine (Namenda) 10 mg BID PO 03/06/22 21:00 03/10/22 08:29 Simvastatin (Zocor) 20 mg QHS PO 03/06/22 21:00 03/09/22 21:25 Ascorbic Acid (Vitamin C) 250 mg DAILY PO 03/07/22 09:00 03/10/22 08:30 Vitamin D (Vitamin D3) 1,000 unit DAILY PO 03/07/22 09:00 03/10/22 08:28 Fluoxetine HCl (PROzac) 40 mg DAILY PO 03/07/22 09:00 03/07/22 18:03 DC 03/07/22 09:50 Cyanocobalamin (Vitamin B-12) 1,000 mcg DAILY PO 03/07/22 09:00 03/10/22 08:29 Prednisone (Prednisone) 5 mg DAILY PO 03/07/22 09:00 03/10/22 08:29 Fluticasone/ Vilanterol (Breo Ellipta 100-25 Mcg) 1 puff DAILY INH 03/07/22 09:00 03/10/22 08:28 Acetaminophen (Tylenol) 650 mg PRN Q6HRS PRN PO MILD PAIN / TEMP > 100.3'F 03/06/22 20:30 03/07/22 22:51 Multi-Ingredient Ointment (Analgesic [place]) 1 kirk PRN QID PRN TP MUSCLE PAIN 03/06/22 20:30 Al Hydroxide/Mg Hydroxide (Mylanta Plus Xs) 15 ml PRN AFTMEALHC PRN PO DYSPEPSIA 03/06/22 20:30 Magnesium Hydroxide (Milk Of Magnesia) 2,400 mg PRN QHS PRN PO CONSTIPATION 03/06/22 20:30 03/08/22 15:07 Gabapentin (Neurontin) 300 mg TID PO 03/07/22 09:30 03/10/22 14:05 Potassium Chloride (Klor-Con) 20 meq TID PO 03/07/22 14:00 03/07/22 12:28 DC Potassium Chloride (Klor-Con) 20 meq DAILY PO 03/07/22 12:30 03/08/22 15:19 DC Donepezil HCl (Aricept) 10 mg HS PO 03/09/22 21:00 03/09/22 21:25 DC Memantine (Namenda) 10 mg BID PO 03/09/22 21:00 03/09/22 21:23 DC Sertraline HCl (Zoloft) 25 mg DAILY PO 03/10/22 09:00 03/12/22 15:00 03/10/22 08:34 Sertraline HCl (Zoloft) 50 mg DAILY PO 03/13/22 09:00 Quetiapine Fumarate (SEROquel) 12.5 mg HS PO 03/09/22 21:00 03/09/22 21:27 Current Medications Medications (Trade) Dose Ordered Sig/Katelynn Route PRN Reason Start Time Stop Time Status Last Admin Dose Admin Sertraline HCl (Zoloft) 25 mg DAILY PO 03/10/22 09:00 03/12/22 15:00 03/10/22 08:34 I have reviewed the current psychotropics carefully including drug interactions. Risk benefit ratio favors no change other than as noted in my dictated progress note. Diagnosis: Problems: (1) Psychotic disorder (2) Impulse control disorder, unspecified (3) Anxiety disorder, unspecified (4) Dementia, vascular, with depression (5) Dementia, vascular, with delusions (6) Major neurocognitive disorder (7) Dementia in Alzheimer's disease with depression (8) Dementia in Alzheimer's disease with delusions JOSE RUIZ MD Mar 10, 2022 21:25
[2022-03-10] MEDS: DONEPEZIL HCL 10 MG TABLET PO SCH (21:30)
[2022-03-10] MEDS: SIMVASTATIN 20 MG TABLET PO SCH (21:31)
[2022-03-10] MEDS: QUEtiapine 25 MG TABLET. PO SCH (21:31)
--- NOTE | 2022-03-10 22:56 | PDOC ---
Exam Note: Avtar Note: This note is for 03/10/2022 covers elements not covered in my initial note. Subjective: The patient was seen individually on 03/10/2022, discussed and reviewed the chart with Bull KNOTT. The patient slept 7-1/2 hours previous night. Overall she remains confused, anxious, more so in the evening. She believed she is in a hotel. AST and ALT elevated. We will defer to Dr. Burkett. She has been otherwise pleasant, sleeping reasonably. I met with her in her room. Review of Systems: No CV, , pulmonary, eye, ENT system symptoms on review. Reliability varies. Mental Status Exam: Patient is oriented to herself and situation. She was confused, did not know where her room was even though she is standing in front of it and name is written on the outside. Speech coherent. Abstraction fair. Computation impaired. Language function intact. Mood and affect anxious but improved. Laboratory Data: Reviewed. Impression: Psychotic disorder unspecified. Major neurocognitive disorder, Alzheimer, vascular with delusion, depression. Anxiety disorder unspecified. Impulse control disorder unspecified. Plan: Continue rest psychotropics and as above. Reviewed drug interactions, risk-benefit ratio. Adjust as clinically indicated. Assessment: Vital Signs/I&O: Vital Signs Date Time Temp Pulse Resp B/P (MAP) Pulse Ox O2 Delivery O2 Flow Rate FiO2 03/10/22 21:31 67 136/66 03/10/22 16:00 97.6 18 97 03/09/22 06:44 Room Air I & O 03/09/22 03/09/22 03/10/22 15:00 23:00 07:00 Intake Total 240 ml 560 ml Balance 240 ml 560 ml Labs: Laboratory Tests Test 03/10/22 07:00 03/10/22 11:00 White Blood Count 5.8 x10^3/uL (4.0-11.0) Red Blood Count 4.28 x10^6/uL (3.50-5.40) Hemoglobin 13.0 g/dL (12.0-15.5) Hematocrit 38.9 % (36.0-47.0) Mean Corpuscular Volume 91 fL (79-100) Mean Corpuscular Hemoglobin 30 pg (25-35) Mean Corpuscular Hemoglobin Concent 33 g/dL (31-37) Red Cell Distribution Width 14.6 % (11.5-14.5) H Platelet Count 154 x10^3/uL (140-400) Sodium Level 142 mmol/L (136-145) Potassium Level 3.4 mmol/L (3.5-5.1) L Chloride Level 105 mmol/L (98-107) Carbon Dioxide Level 31 mmol/L (21-32) Anion Gap 6 (6-14) Blood Urea Nitrogen 14 mg/dL (7-20) Creatinine 1.1 mg/dL (0.6-1.0) H Estimated GFR (Cockcroft-Gault) 48.2 BUN/Creatinine Ratio 13 (6-20) Glucose Level 104 mg/dL (70-99) H Calcium Level 8.9 mg/dL (8.5-10.1) Total Bilirubin 0.5 mg/dL (0.2-1.0) Aspartate Amino Transferase (AST) 71 U/L (15-37) H Alanine Aminotransferase (ALT) 106 U/L (14-59) H Alkaline Phosphatase 94 U/L (46-116) Total Protein 6.3 g/dL (6.4-8.2) L Albumin 3.3 g/dL (3.4-5.0) L Albumin/Globulin Ratio 1.1 (1.0-1.7) POC SARS CoV-2 Antigen Negative (NEGATIVE) Current Medications: Meds: Current Medications Medications (Trade) Dose Ordered Sig/Katelynn Route PRN Reason Start Time Stop Time Status Last Admin Dose Admin Sertraline HCl (Zoloft) 25 mg DAILY PO 03/10/22 09:00 03/12/22 15:00 03/10/22 08:34 I have reviewed the current psychotropics carefully including drug interactions. Risk benefit ratio favors no change other than as noted in my dictated progress note. Diagnosis: Problems: (1) Psychotic disorder (2) Impulse control disorder, unspecified (3) Anxiety disorder, unspecified (4) Dementia, vascular, with depression (5) Dementia, vascular, with delusions (6) Major neurocognitive disorder (7) Dementia in Alzheimer's disease with depression (8) Dementia in Alzheimer's disease with delusions JOSE RUIZ MD Mar 10, 2022 22:56
[2022-03-11 06:05] VITALS: BP 145/69
[2022-03-11] MEDS: GABAPENTIN 300 MG CAPSULE. PO SCH ×3 (08:43→20:02)
[2022-03-11] MEDS: SERTRALINE 25 MG TABLET. PO SCH (08:44)
[2022-03-11] MEDS: CYANOCOBALAMIN (VITAMIN B-12) 1,000 MCG TABLET. PO SCH (08:44)
[2022-03-11] MEDS: CHOLECALCIFEROL (VITAMIN D3) 1,000 UNIT TABLET PO SCH (08:45)
[2022-03-11] MEDS: MEMANTINE 10 MG TABLET. PO SCH ×2 (08:45→20:02)
[2022-03-11] MEDS: AMIODARONE HCL 200 MG TABLET. PO SCH ×2 (08:46→20:01)
[2022-03-11] MEDS: predniSONE 5 MG TABLET PO SCH (08:46)
[2022-03-11] MEDS: FLUTICASONE/VILANTEROL 100/25 INHALER. INH SCH (08:50)
[2022-03-11] MEDS: ANASTROZOLE 1 MG TABLET PO SCH (08:50)
[2022-03-11] MEDS: ASCORBIC ACID 500 MG TABLET PO SCH (08:51)
[2022-03-11 16:10] VITALS: BP 111/68
[2022-03-11] MEDS: DONEPEZIL HCL 10 MG TABLET PO SCH (20:01)
[2022-03-11] MEDS: SIMVASTATIN 20 MG TABLET PO SCH (20:02)
[2022-03-11] MEDS: QUEtiapine 25 MG TABLET. PO SCH (20:02)
--- NOTE | 2022-03-11 21:45 | PDOC ---
Exam Note: Avtar Note: Please also refer to the separate dictated note~for this date of service dictated separately.~Patient seen individually. Discussed the patient with Nursing staff reviewed the chart.~Reviewed interim history and current functioning. Reviewed vital signs,~Labs/ Radiology~and current medications noted below. Continue current treatment with the changes noted in the dictated addendum note Assessment: Vital Signs/I&O: Vital Signs Date Time Temp Pulse Resp B/P (MAP) Pulse Ox O2 Delivery O2 Flow Rate FiO2 03/11/22 20:01 70 111/68 03/11/22 16:10 97.0 19 96 03/09/22 06:44 Room Air I & O 03/10/22 03/10/22 03/11/22 15:00 23:00 07:00 Intake Total 780 ml 340 ml Balance 780 ml 340 ml Current Medications: Meds: Current Medications Medications (Trade) Dose Ordered Sig/Katelynn Route PRN Reason Start Time Stop Time Status Last Admin Dose Admin Albuterol Sulfate (Ventolin Hfa Inhaler) 2 puff PRN Q4HRS PRN INH wheezing 03/06/22 20:30 03/07/22 09:43 Amiodarone HCl (Cordarone) 200 mg BID PO 03/06/22 21:00 03/11/22 20:01 Anastrozole (Arimidex) 1 mg DAILY PO 03/07/22 09:00 03/11/22 08:50 Donepezil HCl (Aricept) 10 mg HS PO 03/06/22 21:00 03/11/22 20:01 Duloxetine HCl (Cymbalta) 60 mg DAILY PO 03/07/22 09:00 03/09/22 21:25 DC 03/09/22 08:07 Gabapentin (Neurontin) 900 mg BID PO 03/06/22 21:00 03/07/22 09:27 DC Acetaminophen/ Hydrocodone Bitart (Lortab 7.5/325) 1 tab PRN BID PRN PO MOD-SEV PAIN 03/06/22 20:00 Memantine (Namenda) 10 mg BID PO 03/06/22 21:00 03/11/22 20:02 Simvastatin (Zocor) 20 mg QHS PO 03/06/22 21:00 03/11/22 20:02 Ascorbic Acid (Vitamin C) 250 mg DAILY PO 03/07/22 09:00 03/11/22 08:51 Vitamin D (Vitamin D3) 1,000 unit DAILY PO 03/07/22 09:00 03/11/22 08:45 Fluoxetine HCl (PROzac) 40 mg DAILY PO 03/07/22 09:00 03/07/22 18:03 DC 03/07/22 09:50 Cyanocobalamin (Vitamin B-12) 1,000 mcg DAILY PO 03/07/22 09:00 03/11/22 08:44 Prednisone (Prednisone) 5 mg DAILY PO 03/07/22 09:00 03/11/22 08:46 Fluticasone/ Vilanterol (Breo Ellipta 100-25 Mcg) 1 puff DAILY INH 03/07/22 09:00 03/11/22 08:50 Acetaminophen (Tylenol) 650 mg PRN Q6HRS PRN PO MILD PAIN / TEMP > 100.3'F 03/06/22 20:30 03/07/22 22:51 Multi-Ingredient Ointment (Analgesic [place]) 1 kirk PRN QID PRN TP MUSCLE PAIN 03/06/22 20:30 Al Hydroxide/Mg Hydroxide (Mylanta Plus Xs) 15 ml PRN AFTMEALHC PRN PO DYSPEPSIA 03/06/22 20:30 Magnesium Hydroxide (Milk Of Magnesia) 2,400 mg PRN QHS PRN PO CONSTIPATION 03/06/22 20:30 03/08/22 15:07 Gabapentin (Neurontin) 300 mg TID PO 03/07/22 09:30 03/11/22 20:02 Potassium Chloride (Klor-Con) 20 meq TID PO 03/07/22 14:00 03/07/22 12:28 DC Potassium Chloride (Klor-Con) 20 meq DAILY PO 03/07/22 12:30 03/08/22 15:19 DC Donepezil HCl (Aricept) 10 mg HS PO 03/09/22 21:00 03/09/22 21:25 DC Memantine (Namenda) 10 mg BID PO 03/09/22 21:00 03/09/22 21:23 DC Sertraline HCl (Zoloft) 25 mg DAILY PO 03/10/22 09:00 03/12/22 15:00 03/11/22 08:44 Sertraline HCl (Zoloft) 50 mg DAILY PO 03/13/22 09:00 Quetiapine Fumarate (SEROquel) 12.5 mg HS PO 03/09/22 21:00 03/11/22 20:02 I have reviewed the current psychotropics carefully including drug interactions. Risk benefit ratio favors no change other than as noted in my dictated progress note. Diagnosis: Problems: (1) Psychotic disorder (2) Impulse control disorder, unspecified (3) Anxiety disorder, unspecified (4) Dementia, vascular, with depression (5) Dementia, vascular, with delusions (6) Major neurocognitive disorder (7) Dementia in Alzheimer's disease with depression (8) Dementia in Alzheimer's disease with delusions JOSE RUIZ MD Mar 11, 2022 21:45
[2022-03-12 06:05] VITALS: BP 143/78
--- NOTE | 2022-03-12 06:15 | PDOC ---
Exam Note: Avtar Note: This note is for 03/11/2022 covers elements not covered in my initial note. Subjective: The patient was seen individually on 03/11/2022, discussed and reviewed the chart with Zoraida KNOTT. The patient slept 6-1/4 hours previous night. She remains confused with significant short-term memory deficits. 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 I have reviewed approximately 80 pages of medical records from [facility]. There was a question whether she was diagnosed with normal pressure hydrocephalus while there by Dr. Masters. In fact Dr. Dawn records and the MRI indicate that she has some enlargement of the ventricular system due to cortical atrophy rather than normal pressure hydrocephalus. She is getting ready to get into bed. Review of Systems: No CV, , pulmonary, eye, ENT system symptoms on review. Positive for some tiredness. Mental Status Exam: Patient is oriented to herself and situation. Speech coherent. Abstraction fair. Computation impaired. Language function intact. Mood and affect anxious but improved. Laboratory Data: Reviewed. Impression: Psychotic disorder unspecified. Major neurocognitive disorder, Alzheimer, vascular with delusion, depression. Anxiety disorder unspecified. Impulse control disorder unspecified. Plan: Continue rest psychotropics Aricept, Namenda, Zoloft which is gradually increasing on 03/13 along with gabapentin and Seroquel. Reviewed drug interactions, risk-benefit ratio. Adjust as clinically indicated. Assessment: Vital Signs/I&O: Vital Signs Date Time Temp Pulse Resp B/P (MAP) Pulse Ox O2 Delivery O2 Flow Rate FiO2 03/12/22 06:05 97.4 65 17 143/78 (99) 98 03/09/22 06:44 Room Air I & O 03/11/22 03/11/22 03/12/22 15:00 23:00 07:00 Intake Total 1020 ml 600 ml Balance 1020 ml 600 ml Current Medications: I have reviewed the current psychotropics carefully including drug interactions. Risk benefit ratio favors no change other than as noted in my dictated progress note. Diagnosis: Problems: (1) Psychotic disorder (2) Impulse control disorder, unspecified (3) Anxiety disorder, unspecified (4) Dementia, vascular, with depression (5) Dementia, vascular, with delusions (6) Major neurocognitive disorder (7) Dementia in Alzheimer's disease with depression (8) Dementia in Alzheimer's disease with delusions JOSE RUIZ MD Mar 12, 2022 06:15
[2022-03-12] MEDS: CHOLECALCIFEROL (VITAMIN D3) 1,000 UNIT TABLET PO SCH (08:48)
[2022-03-12] MEDS: ANASTROZOLE 1 MG TABLET PO SCH (08:49)
[2022-03-12] MEDS: MEMANTINE 10 MG TABLET. PO SCH ×2 (08:50→19:51)
[2022-03-12] MEDS: CYANOCOBALAMIN (VITAMIN B-12) 1,000 MCG TABLET. PO SCH (08:50)
[2022-03-12] MEDS: SERTRALINE 25 MG TABLET. PO SCH (08:50)
[2022-03-12] MEDS: GABAPENTIN 300 MG CAPSULE. PO SCH ×3 (08:50→19:51)
[2022-03-12] MEDS: AMIODARONE HCL 200 MG TABLET. PO SCH ×2 (08:50→19:51)
[2022-03-12] MEDS: predniSONE 5 MG TABLET PO SCH (08:50)
[2022-03-12] MEDS: ASCORBIC ACID 500 MG TABLET PO SCH (08:53)
[2022-03-12] MEDS: FLUTICASONE/VILANTEROL 100/25 INHALER. INH SCH (08:54)
[2022-03-12] MEDS: ALBUTEROL SULFATE 8GM INHALER. INH PRN (08:54)
[2022-03-12 15:53] VITALS: BP 154/68
[2022-03-12] MEDS: DONEPEZIL HCL 10 MG TABLET PO SCH (19:50)
[2022-03-12] MEDS: SIMVASTATIN 20 MG TABLET PO SCH (19:51)
[2022-03-12] MEDS: QUEtiapine 25 MG TABLET. PO SCH (19:51)
--- NOTE | 2022-03-12 21:31 | PDOC ---
Exam Note: Avtar Note: Please also refer to the separate dictated note~for this date of service dictated separately.~Patient seen individually. Discussed the patient with Nursing staff reviewed the chart.~Reviewed interim history and current functioning. Reviewed vital signs,~Labs/ Radiology~and current medications noted below. Continue current treatment with the changes noted in the dictated addendum note Assessment: Vital Signs/I&O: Vital Signs Date Time Temp Pulse Resp B/P (MAP) Pulse Ox O2 Delivery O2 Flow Rate FiO2 03/12/22 19:51 75 154/68 03/12/22 15:53 98.4 18 93 Room Air I & O 03/11/22 03/11/22 03/12/22 15:00 23:00 07:00 Intake Total 1020 ml 600 ml Balance 1020 ml 600 ml Current Medications: Meds: Current Medications Medications (Trade) Dose Ordered Sig/Katelynn Route PRN Reason Start Time Stop Time Status Last Admin Dose Admin Albuterol Sulfate (Ventolin Hfa Inhaler) 2 puff PRN Q4HRS PRN INH wheezing 03/06/22 20:30 03/12/22 08:54 Amiodarone HCl (Cordarone) 200 mg BID PO 03/06/22 21:00 03/12/22 19:51 Anastrozole (Arimidex) 1 mg DAILY PO 03/07/22 09:00 03/12/22 08:49 Donepezil HCl (Aricept) 10 mg HS PO 03/06/22 21:00 03/12/22 19:50 Duloxetine HCl (Cymbalta) 60 mg DAILY PO 03/07/22 09:00 03/09/22 21:25 DC 03/09/22 08:07 Gabapentin (Neurontin) 900 mg BID PO 03/06/22 21:00 03/07/22 09:27 DC Acetaminophen/ Hydrocodone Bitart (Lortab 7.5/325) 1 tab PRN BID PRN PO MOD-SEV PAIN 03/06/22 20:00 Memantine (Namenda) 10 mg BID PO 03/06/22 21:00 03/12/22 19:51 Simvastatin (Zocor) 20 mg QHS PO 03/06/22 21:00 03/12/22 19:51 Ascorbic Acid (Vitamin C) 250 mg DAILY PO 03/07/22 09:00 03/12/22 08:53 Vitamin D (Vitamin D3) 1,000 unit DAILY PO 03/07/22 09:00 03/12/22 08:48 Fluoxetine HCl (PROzac) 40 mg DAILY PO 03/07/22 09:00 03/07/22 18:03 DC 03/07/22 09:50 Cyanocobalamin (Vitamin B-12) 1,000 mcg DAILY PO 03/07/22 09:00 03/12/22 08:50 Prednisone (Prednisone) 5 mg DAILY PO 03/07/22 09:00 03/12/22 08:50 Fluticasone/ Vilanterol (Breo Ellipta 100-25 Mcg) 1 puff DAILY INH 03/07/22 09:00 03/12/22 08:54 Acetaminophen (Tylenol) 650 mg PRN Q6HRS PRN PO MILD PAIN / TEMP > 100.3'F 03/06/22 20:30 03/07/22 22:51 Multi-Ingredient Ointment (Analgesic [place]) 1 kirk PRN QID PRN TP MUSCLE PAIN 03/06/22 20:30 Al Hydroxide/Mg Hydroxide (Mylanta Plus Xs) 15 ml PRN AFTMEALHC PRN PO DYSPEPSIA 03/06/22 20:30 Magnesium Hydroxide (Milk Of Magnesia) 2,400 mg PRN QHS PRN PO CONSTIPATION 03/06/22 20:30 03/08/22 15:07 Gabapentin (Neurontin) 300 mg TID PO 03/07/22 09:30 03/12/22 19:51 Potassium Chloride (Klor-Con) 20 meq TID PO 03/07/22 14:00 03/07/22 12:28 DC Potassium Chloride (Klor-Con) 20 meq DAILY PO 03/07/22 12:30 03/08/22 15:19 DC Donepezil HCl (Aricept) 10 mg HS PO 03/09/22 21:00 03/09/22 21:25 DC Memantine (Namenda) 10 mg BID PO 03/09/22 21:00 03/09/22 21:23 DC Sertraline HCl (Zoloft) 25 mg DAILY PO 03/10/22 09:00 03/12/22 15:00 DC 03/12/22 08:50 Sertraline HCl (Zoloft) 50 mg DAILY PO 03/13/22 09:00 Quetiapine Fumarate (SEROquel) 12.5 mg HS PO 03/09/22 21:00 03/12/22 19:51 I have reviewed the current psychotropics carefully including drug interactions. Risk benefit ratio favors no change other than as noted in my dictated progress note. Diagnosis: Problems: (1) Psychotic disorder (2) Impulse control disorder, unspecified (3) Anxiety disorder, unspecified (4) Dementia, vascular, with depression (5) Dementia, vascular, with delusions (6) Major neurocognitive disorder (7) Dementia in Alzheimer's disease with depression (8) Dementia in Alzheimer's disease with delusions JOSE RUIZ MD Mar 12, 2022 21:31
[2022-03-13 06:31] VITALS: BP 142/82
[2022-03-13] MEDS: MEMANTINE 10 MG TABLET. PO SCH ×2 (07:39→20:29)
[2022-03-13] MEDS: GABAPENTIN 300 MG CAPSULE. PO SCH ×3 (07:40→20:31)
[2022-03-13] MEDS: CYANOCOBALAMIN (VITAMIN B-12) 1,000 MCG TABLET. PO SCH (07:40)
[2022-03-13] MEDS: AMIODARONE HCL 200 MG TABLET. PO SCH ×2 (07:40→20:29)
[2022-03-13] MEDS: predniSONE 5 MG TABLET PO SCH (07:40)
[2022-03-13] MEDS: CHOLECALCIFEROL (VITAMIN D3) 1,000 UNIT TABLET PO SCH (07:40)
[2022-03-13] MEDS: ASCORBIC ACID 500 MG TABLET PO SCH (07:40)
[2022-03-13] MEDS: SERTRALINE 50 MG TABLET. PO SCH (07:40)
[2022-03-13] MEDS: FLUTICASONE/VILANTEROL 100/25 INHALER. INH SCH (07:41)
[2022-03-13] MEDS: ANASTROZOLE 1 MG TABLET PO SCH (07:41)
--- NOTE | 2022-03-13 08:48 | PDOC ---
Exam Note: Avtar Note: This note is for 03/12/2022 covers elements not covered in my initial note. Subjective: The patient was seen individually on 03/12/2022, discussed and reviewed the chart with Lucia GONZALEZ. The patient slept 6-1/2 hours previous night. I met with the patient in her room. She remains confused, forgetful but otherwise cooperative, somewhat anxious, a little obsessive. Review of Systems: No CV, , pulmonary, eye, ENT system symptoms on review. Mental Status Exam: Patient is oriented to herself and situation. Speech coherent. Abstraction fair. Computation impaired. Language function intact. Mood and affect anxious, obsessive. She was repeatedly asking about discharge plans which I addressed with her. She is otherwise, pleasant, smiling, verbal and interactive. No suicidal or homicidal ideation. Laboratory Data: Reviewed. Impression: Psychotic disorder unspecified. Major neurocognitive disorder, Alzheimer, vascular with delusion, depression. Anxiety disorder unspecified. Impulse control disorder unspecified. Plan: Continue rest psychotropics unchanged. Reviewed drug interactions, risk- benefit ratio. Adjust as clinically indicated. Assessment: Vital Signs/I&O: Vital Signs Date Time Temp Pulse Resp B/P (MAP) Pulse Ox O2 Delivery O2 Flow Rate FiO2 03/13/22 07:40 62 142/82 03/13/22 06:31 97.4 20 97 Room Air I & O 03/12/22 03/12/22 03/13/22 15:00 23:00 07:00 Intake Total 720 ml 720 ml Balance 720 ml 720 ml Current Medications: Meds: Current Medications Medications (Trade) Dose Ordered Sig/Katelynn Route PRN Reason Start Time Stop Time Status Last Admin Dose Admin Sertraline HCl (Zoloft) 50 mg DAILY PO 03/13/22 09:00 03/13/22 07:40 I have reviewed the current psychotropics carefully including drug interactions. Risk benefit ratio favors no change other than as noted in my dictated progress note. Diagnosis: Problems: (1) Psychotic disorder (2) Impulse control disorder, unspecified (3) Anxiety disorder, unspecified (4) Dementia, vascular, with depression (5) Dementia, vascular, with delusions (6) Major neurocognitive disorder (7) Dementia in Alzheimer's disease with depression (8) Dementia in Alzheimer's disease with delusions JOSE RUIZ MD Mar 13, 2022 08:48
[2022-03-13 15:41] VITALS: BP 161/71
[2022-03-13] MEDS: SIMVASTATIN 20 MG TABLET PO SCH (20:29)
[2022-03-13] MEDS: QUEtiapine 25 MG TABLET. PO SCH (20:29)
[2022-03-13] MEDS: DONEPEZIL HCL 10 MG TABLET PO SCH (20:29)
[2022-03-13] MEDS: ACETAMINOPHEN 325 MG TABLET PO PRN (20:30)
--- NOTE | 2022-03-13 22:06 | PDOC ---
Exam Note: Avtar Note: Please also refer to the separate dictated note~for this date of service dictated separately.~Patient seen individually. Discussed the patient with Nursing staff reviewed the chart.~Reviewed interim history and current functioning. Reviewed vital signs,~Labs/ Radiology~and current medications noted below. Continue current treatment with the changes noted in the dictated addendum note Assessment: Vital Signs/I&O: Vital Signs Date Time Temp Pulse Resp B/P (MAP) Pulse Ox O2 Delivery O2 Flow Rate FiO2 03/13/22 20:29 90 161/71 03/13/22 15:41 98.5 18 98 03/13/22 06:31 Room Air I & O 03/12/22 03/12/22 03/13/22 15:00 23:00 07:00 Intake Total 720 ml 720 ml Balance 720 ml 720 ml Current Medications: Meds: Current Medications Medications (Trade) Dose Ordered Sig/Katelynn Route PRN Reason Start Time Stop Time Status Last Admin Dose Admin Albuterol Sulfate (Ventolin Hfa Inhaler) 2 puff PRN Q4HRS PRN INH wheezing 03/06/22 20:30 03/12/22 08:54 Amiodarone HCl (Cordarone) 200 mg BID PO 03/06/22 21:00 03/13/22 20:29 Anastrozole (Arimidex) 1 mg DAILY PO 03/07/22 09:00 03/13/22 07:41 Donepezil HCl (Aricept) 10 mg HS PO 03/06/22 21:00 03/13/22 20:29 Duloxetine HCl (Cymbalta) 60 mg DAILY PO 03/07/22 09:00 03/09/22 21:25 DC 03/09/22 08:07 Gabapentin (Neurontin) 900 mg BID PO 03/06/22 21:00 03/07/22 09:27 DC Acetaminophen/ Hydrocodone Bitart (Lortab 7.5/325) 1 tab PRN BID PRN PO MOD-SEV PAIN 03/06/22 20:00 Memantine (Namenda) 10 mg BID PO 03/06/22 21:00 03/13/22 20:29 Simvastatin (Zocor) 20 mg QHS PO 03/06/22 21:00 03/13/22 20:29 Ascorbic Acid (Vitamin C) 250 mg DAILY PO 03/07/22 09:00 03/13/22 07:40 Vitamin D (Vitamin D3) 1,000 unit DAILY PO 03/07/22 09:00 03/13/22 07:40 Fluoxetine HCl (PROzac) 40 mg DAILY PO 03/07/22 09:00 03/07/22 18:03 DC 03/07/22 09:50 Cyanocobalamin (Vitamin B-12) 1,000 mcg DAILY PO 03/07/22 09:00 03/13/22 07:40 Prednisone (Prednisone) 5 mg DAILY PO 03/07/22 09:00 03/13/22 07:40 Fluticasone/ Vilanterol (Breo Ellipta 100-25 Mcg) 1 puff DAILY INH 03/07/22 09:00 03/13/22 07:41 Acetaminophen (Tylenol) 650 mg PRN Q6HRS PRN PO MILD PAIN / TEMP > 100.3'F 03/06/22 20:30 03/13/22 20:30 Multi-Ingredient Ointment (Analgesic [place]) 1 kirk PRN QID PRN TP MUSCLE PAIN 03/06/22 20:30 Al Hydroxide/Mg Hydroxide (Mylanta Plus Xs) 15 ml PRN AFTMEALHC PRN PO DYSPEPSIA 03/06/22 20:30 Magnesium Hydroxide (Milk Of Magnesia) 2,400 mg PRN QHS PRN PO CONSTIPATION 03/06/22 20:30 03/08/22 15:07 Gabapentin (Neurontin) 300 mg TID PO 03/07/22 09:30 03/13/22 20:31 Potassium Chloride (Klor-Con) 20 meq TID PO 03/07/22 14:00 03/07/22 12:28 DC Potassium Chloride (Klor-Con) 20 meq DAILY PO 03/07/22 12:30 03/08/22 15:19 DC Donepezil HCl (Aricept) 10 mg HS PO 03/09/22 21:00 03/09/22 21:25 DC Memantine (Namenda) 10 mg BID PO 03/09/22 21:00 03/09/22 21:23 DC Sertraline HCl (Zoloft) 25 mg DAILY PO 03/10/22 09:00 03/12/22 15:00 DC 03/12/22 08:50 Sertraline HCl (Zoloft) 50 mg DAILY PO 03/13/22 09:00 03/13/22 07:40 Quetiapine Fumarate (SEROquel) 12.5 mg HS PO 03/09/22 21:00 03/13/22 20:29 Current Medications Medications (Trade) Dose Ordered Sig/Katelynn Route PRN Reason Start Time Stop Time Status Last Admin Dose Admin Sertraline HCl (Zoloft) 50 mg DAILY PO 03/13/22 09:00 03/13/22 07:40 I have reviewed the current psychotropics carefully including drug interactions. Risk benefit ratio favors no change other than as noted in my dictated progress note. Diagnosis: Problems: (1) Psychotic disorder (2) Impulse control disorder, unspecified (3) Anxiety disorder, unspecified (4) Dementia, vascular, with depression (5) Dementia, vascular, with delusions (6) Major neurocognitive disorder (7) Dementia in Alzheimer's disease with depression (8) Dementia in Alzheimer's disease with delusions JOSE RUIZ MD Mar 13, 2022 22:06
[2022-03-14 06:53] LABS: BASO # 0.1 x10^3/uL (0.0-0.2); BASO % 1 % (0-3); EOS # 0.2 x10^3/uL (0.0-0.7); EOS % 3 % (0-3); HEMATOCRIT 37.1 % (36.0-47.0); HEMOGLOBIN 12.3 g/dL (12.0-15.5); LYMPH # 2.2 x10^3/uL (1.0-4.8); LYMPH % 34 % (24-48); MEAN CORPUSCULAR HEMOGLOBIN 30 pg (25-35); MEAN CORPUSCULAR HGB CONC 33 g/dL (31-37); MEAN CORPUSCULAR VOLUME 91 fL (79-100); MONO # 0.6 x10^3/uL (0.0-1.1); MONO % 9 % (0-9); NEUT # 3.4 x10^3uL (1.8-7.7); NEUT % 53 % (31-73); PLATELET COUNT 168 x10^3/uL (140-400); RED BLOOD COUNT 4.07 x10^6/uL (3.50-5.40); RED CELL DISTRIBUTION WIDTH 14.1 % (11.5-14.5); WHITE BLOOD COUNT 6.4 x10^3/uL (4.0-11.0)
[2022-03-14 07:05] VITALS: BP 173/75
[2022-03-14 07:17] LABS: ALBUMIN 3.1 g/dL (3.4-5.0); CREATININE 1.1 mg/dL (0.6-1.0); GFR 48.2; TOTAL BILIRUBIN 0.4 mg/dL (0.2-1.0); TOTAL PROTEIN 6.3 g/dL (6.4-8.2)
[2022-03-14] MEDS: ASCORBIC ACID 500 MG TABLET PO SCH (08:25)
[2022-03-14] MEDS: CHOLECALCIFEROL (VITAMIN D3) 1,000 UNIT TABLET PO SCH (08:25)
[2022-03-14] MEDS: MEMANTINE 10 MG TABLET. PO SCH ×2 (08:25→20:10)
[2022-03-14] MEDS: GABAPENTIN 300 MG CAPSULE. PO SCH ×3 (08:26→20:10)
[2022-03-14] MEDS: CYANOCOBALAMIN (VITAMIN B-12) 1,000 MCG TABLET. PO SCH (08:26)
[2022-03-14] MEDS: AMIODARONE HCL 200 MG TABLET. PO SCH ×2 (08:26→20:10)
[2022-03-14] MEDS: ANASTROZOLE 1 MG TABLET PO SCH (08:27)
[2022-03-14] MEDS: predniSONE 5 MG TABLET PO SCH (08:28)
[2022-03-14] MEDS: SERTRALINE 50 MG TABLET. PO SCH (08:28)
[2022-03-14] MEDS: ALBUTEROL SULFATE 8GM INHALER. INH PRN (08:29)
--- NOTE | 2022-03-14 08:55 | PDOC ---
Exam Note: Avtar Note: This note is a late entry for 03/13/2022 covers elements not covered in my initial note. Subjective: The patient was reviewed at treatment team meeting individually in the morning on 03/13/2022 with Janelle Stokes, Maryana Rudd, and Brittany Snell (child protective services social worker), Mell, activity therapy, and Alma KNOTT, discussed and reviewed the chart. The patient slept 5-3/4 hours previous night. The patients DPOA and friend Ed attended the meeting. I have reviewed records from Dr. Masters about questionable normal pressure hydrocephalus but apparently the final assessment goes hydrocephalus ex vacuo. She is confused more so in the evening with short-term memory deficits. She is oriented to herself and date. She has attended 6 groups, does well in the [facility] group. In the evening discussed with Renea KNOTT. I met with her at length in her room. Labs to be check on 03/14. She gets agitated with her roommate. She had many questions about the progression of her dementia, the causation, prognosis addressed this with her at great length. She seemed to comprehend. Review of Systems: No CV, , pulmonary, eye, ENT system symptoms on review. Mental Status Exam: Patient is oriented to herself and situation. Speech coherent. Abstraction fair. Computation impaired. Language function intact. Mood and affect anxious. Short-term memory is impaired. No suicidal or homicidal ideation. Laboratory Data: Reviewed. Impression: Psychotic disorder unspecified. Major neurocognitive disorder, Alzheimer, vascular with delusion, depression. Anxiety disorder unspecified. Impulse control disorder unspecified. Plan: Continue rest psychotropics unchanged. Reviewed drug interactions, risk-benefit ratio. Adjust as clinically indicated. Assessment: Vital Signs/I&O: Vital Signs Date Time Temp Pulse Resp B/P (MAP) Pulse Ox O2 Delivery O2 Flow Rate FiO2 03/14/22 08:26 72 173/75 03/14/22 07:05 98.3 17 96 Room Air I & O 03/13/22 03/13/22 03/14/22 15:00 23:00 07:00 Intake Total 680 ml 600 ml Balance 680 ml 600 ml Labs: Laboratory Tests Test 03/14/22 06:04 White Blood Count 6.4 x10^3/uL (4.0-11.0) Red Blood Count 4.07 x10^6/uL (3.50-5.40) Hemoglobin 12.3 g/dL (12.0-15.5) Hematocrit 37.1 % (36.0-47.0) Mean Corpuscular Volume 91 fL (79-100) Mean Corpuscular Hemoglobin 30 pg (25-35) Mean Corpuscular Hemoglobin Concent 33 g/dL (31-37) Red Cell Distribution Width 14.1 % (11.5-14.5) Platelet Count 168 x10^3/uL (140-400) Neutrophils (%) (Auto) 53 % (31-73) Lymphocytes (%) (Auto) 34 % (24-48) Monocytes (%) (Auto) 9 % (0-9) Eosinophils (%) (Auto) 3 % (0-3) Basophils (%) (Auto) 1 % (0-3) Neutrophils # (Auto) 3.4 x10^3uL (1.8-7.7) Lymphocytes # (Auto) 2.2 x10^3/uL (1.0-4.8) Monocytes # (Auto) 0.6 x10^3/uL (0.0-1.1) Eosinophils # (Auto) 0.2 x10^3/uL (0.0-0.7) Basophils # (Auto) 0.1 x10^3/uL (0.0-0.2) Sodium Level Pending Potassium Level Pending Chloride Level Pending Carbon Dioxide Level 34 mmol/L (21-32) H Anion Gap Pending Blood Urea Nitrogen 17 mg/dL (7-20) Creatinine 1.1 mg/dL (0.6-1.0) H Estimated GFR (Cockcroft-Gault) 48.2 BUN/Creatinine Ratio 15 (6-20) Glucose Level 93 mg/dL (70-99) Calcium Level 9.0 mg/dL (8.5-10.1) Total Bilirubin 0.4 mg/dL (0.2-1.0) Aspartate Amino Transferase (AST) 44 U/L (15-37) H Alanine Aminotransferase (ALT) 102 U/L (14-59) H Alkaline Phosphatase 87 U/L (46-116) Total Protein 6.3 g/dL (6.4-8.2) L Albumin 3.1 g/dL (3.4-5.0) L Albumin/Globulin Ratio 1.0 (1.0-1.7) Current Medications: Meds: Current Medications Medications (Trade) Dose Ordered Sig/Katelynn Route PRN Reason Start Time Stop Time Status Last Admin Dose Admin Sertraline HCl (Zoloft) 50 mg DAILY PO 03/13/22 09:00 03/14/22 08:28 I have reviewed the current psychotropics carefully including drug interactions. Risk benefit ratio favors no change other than as noted in my dictated progress note. Diagnosis: Problems: (1) Psychotic disorder (2) Impulse control disorder, unspecified (3) Anxiety disorder, unspecified (4) Dementia, vascular, with depression (5) Dementia, vascular, with delusions (6) Major neurocognitive disorder (7) Dementia in Alzheimer's disease with depression (8) Dementia in Alzheimer's disease with delusions JOSE RUIZ MD Mar 14, 2022 08:55
[2022-03-14 09:10] LABS: POTASSIUM 3.5 mmol/L (3.5-5.1)
[2022-03-14] MEDS: FLUTICASONE/VILANTEROL 100/25 INHALER. INH SCH (09:28)
[2022-03-14 17:21] VITALS: BP 125/69
[2022-03-14] MEDS: DONEPEZIL HCL 10 MG TABLET PO SCH (20:09)
[2022-03-14] MEDS: QUEtiapine 25 MG TABLET. PO SCH (20:11)
[2022-03-14] MEDS: SIMVASTATIN 20 MG TABLET PO SCH (20:12)
--- NOTE | 2022-03-14 21:37 | PDOC ---
Exam Note: Avtar Note: Please also refer to the separate dictated note~for this date of service dictated separately.~Patient seen individually. Discussed the patient with Nursing staff reviewed the chart.~Reviewed interim history and current functioning. Reviewed vital signs,~Labs/ Radiology~and current medications noted below. Continue current treatment with the changes noted in the dictated addendum note Assessment: Vital Signs/I&O: Vital Signs Date Time Temp Pulse Resp B/P (MAP) Pulse Ox O2 Delivery O2 Flow Rate FiO2 03/14/22 20:10 60 125/69 03/14/22 17:21 98.8 16 95 03/14/22 07:05 Room Air I & O 03/13/22 03/13/22 03/14/22 15:00 23:00 07:00 Intake Total 680 ml 600 ml Balance 680 ml 600 ml Labs: Laboratory Tests Test 03/14/22 06:04 White Blood Count 6.4 x10^3/uL (4.0-11.0) Red Blood Count 4.07 x10^6/uL (3.50-5.40) Hemoglobin 12.3 g/dL (12.0-15.5) Hematocrit 37.1 % (36.0-47.0) Mean Corpuscular Volume 91 fL (79-100) Mean Corpuscular Hemoglobin 30 pg (25-35) Mean Corpuscular Hemoglobin Concent 33 g/dL (31-37) Red Cell Distribution Width 14.1 % (11.5-14.5) Platelet Count 168 x10^3/uL (140-400) Neutrophils (%) (Auto) 53 % (31-73) Lymphocytes (%) (Auto) 34 % (24-48) Monocytes (%) (Auto) 9 % (0-9) Eosinophils (%) (Auto) 3 % (0-3) Basophils (%) (Auto) 1 % (0-3) Neutrophils # (Auto) 3.4 x10^3uL (1.8-7.7) Lymphocytes # (Auto) 2.2 x10^3/uL (1.0-4.8) Monocytes # (Auto) 0.6 x10^3/uL (0.0-1.1) Eosinophils # (Auto) 0.2 x10^3/uL (0.0-0.7) Basophils # (Auto) 0.1 x10^3/uL (0.0-0.2) Sodium Level 147 mmol/L (136-145) H Potassium Level 3.5 mmol/L (3.5-5.1) Chloride Level 106 mmol/L (98-107) Carbon Dioxide Level 34 mmol/L (21-32) H Anion Gap 7 (6-14) Blood Urea Nitrogen 17 mg/dL (7-20) Creatinine 1.1 mg/dL (0.6-1.0) H Estimated GFR (Cockcroft-Gault) 48.2 BUN/Creatinine Ratio 15 (6-20) Glucose Level 93 mg/dL (70-99) Calcium Level 9.0 mg/dL (8.5-10.1) Total Bilirubin 0.4 mg/dL (0.2-1.0) Aspartate Amino Transferase (AST) 44 U/L (15-37) H Alanine Aminotransferase (ALT) 102 U/L (14-59) H Alkaline Phosphatase 87 U/L (46-116) Total Protein 6.3 g/dL (6.4-8.2) L Albumin 3.1 g/dL (3.4-5.0) L Albumin/Globulin Ratio 1.0 (1.0-1.7) Current Medications: Meds: Laboratory Tests Test 03/14/22 06:04 White Blood Count 6.4 x10^3/uL Red Blood Count 4.07 x10^6/uL Hemoglobin 12.3 g/dL Hematocrit 37.1 % Mean Corpuscular Volume 91 fL Mean Corpuscular Hemoglobin 30 pg Mean Corpuscular Hemoglobin Concent 33 g/dL Red Cell Distribution Width 14.1 % Platelet Count 168 x10^3/uL Neutrophils (%) (Auto) 53 % Lymphocytes (%) (Auto) 34 % Monocytes (%) (Auto) 9 % Eosinophils (%) (Auto) 3 % Basophils (%) (Auto) 1 % Neutrophils # (Auto) 3.4 x10^3uL Lymphocytes # (Auto) 2.2 x10^3/uL Monocytes # (Auto) 0.6 x10^3/uL Eosinophils # (Auto) 0.2 x10^3/uL Basophils # (Auto) 0.1 x10^3/uL Sodium Level 147 mmol/L Potassium Level 3.5 mmol/L Chloride Level 106 mmol/L Carbon Dioxide Level 34 mmol/L Anion Gap 7 Blood Urea Nitrogen 17 mg/dL Creatinine 1.1 mg/dL Estimated GFR (Cockcroft-Gault) 48.2 BUN/Creatinine Ratio 15 Glucose Level 93 mg/dL Calcium Level 9.0 mg/dL Total Bilirubin 0.4 mg/dL Aspartate Amino Transf (AST/SGOT) 44 U/L Alanine Aminotransferase (ALT/SGPT) 102 U/L Alkaline Phosphatase 87 U/L Total Protein 6.3 g/dL Albumin 3.1 g/dL Albumin/Globulin Ratio 1.0 Current Medications Medications (Trade) Dose Ordered Sig/Katelynn Route PRN Reason Start Time Stop Time Status Last Admin Dose Admin Albuterol Sulfate (Ventolin Hfa Inhaler) 2 puff PRN Q4HRS PRN INH wheezing 03/06/22 20:30 03/14/22 08:29 Amiodarone HCl (Cordarone) 200 mg BID PO 03/06/22 21:00 03/14/22 20:10 Anastrozole (Arimidex) 1 mg DAILY PO 03/07/22 09:00 03/14/22 08:27 Donepezil HCl (Aricept) 10 mg HS PO 03/06/22 21:00 03/14/22 20:09 Duloxetine HCl (Cymbalta) 60 mg DAILY PO 03/07/22 09:00 03/09/22 21:25 DC 03/09/22 08:07 Gabapentin (Neurontin) 900 mg BID PO 03/06/22 21:00 03/07/22 09:27 DC Acetaminophen/ Hydrocodone Bitart (Lortab 7.5/325) 1 tab PRN BID PRN PO MOD-SEV PAIN 03/06/22 20:00 Memantine (Namenda) 10 mg BID PO 03/06/22 21:00 03/14/22 20:10 Simvastatin (Zocor) 20 mg QHS PO 03/06/22 21:00 03/14/22 20:12 Ascorbic Acid (Vitamin C) 250 mg DAILY PO 03/07/22 09:00 03/14/22 08:25 Vitamin D (Vitamin D3) 1,000 unit DAILY PO 03/07/22 09:00 03/14/22 08:25 Fluoxetine HCl (PROzac) 40 mg DAILY PO 03/07/22 09:00 03/07/22 18:03 DC 03/07/22 09:50 Cyanocobalamin (Vitamin B-12) 1,000 mcg DAILY PO 03/07/22 09:00 03/14/22 08:26 Prednisone (Prednisone) 5 mg DAILY PO 03/07/22 09:00 03/14/22 08:28 Fluticasone/ Vilanterol (Breo Ellipta 100-25 Mcg) 1 puff DAILY INH 03/07/22 09:00 03/14/22 09:28 Acetaminophen (Tylenol) 650 mg PRN Q6HRS PRN PO MILD PAIN / TEMP > 100.3'F 03/06/22 20:30 03/13/22 20:30 Multi-Ingredient Ointment (Analgesic [place]) 1 kirk PRN QID PRN TP MUSCLE PAIN 03/06/22 20:30 Al Hydroxide/Mg Hydroxide (Mylanta Plus Xs) 15 ml PRN AFTMEALHC PRN PO DYSPEPSIA 03/06/22 20:30 Magnesium Hydroxide (Milk Of Magnesia) 2,400 mg PRN QHS PRN PO CONSTIPATION 03/06/22 20:30 03/08/22 15:07 Gabapentin (Neurontin) 300 mg TID PO 03/07/22 09:30 03/14/22 20:10 Potassium Chloride (Klor-Con) 20 meq TID PO 03/07/22 14:00 03/07/22 12:28 DC Potassium Chloride (Klor-Con) 20 meq DAILY PO 03/07/22 12:30 03/08/22 15:19 DC Donepezil HCl (Aricept) 10 mg HS PO 03/09/22 21:00 03/09/22 21:25 DC Memantine (Namenda) 10 mg BID PO 03/09/22 21:00 03/09/22 21:23 DC Sertraline HCl (Zoloft) 25 mg DAILY PO 03/10/22 09:00 03/12/22 15:00 DC 03/12/22 08:50 Sertraline HCl (Zoloft) 50 mg DAILY PO 03/13/22 09:00 03/14/22 08:28 Quetiapine Fumarate (SEROquel) 12.5 mg HS PO 03/09/22 21:00 03/14/22 20:11 I have reviewed the current psychotropics carefully including drug interactions. Risk benefit ratio favors no change other than as noted in my dictated progress note. Diagnosis: Problems: (1) Psychotic disorder (2) Impulse control disorder, unspecified (3) Anxiety disorder, unspecified (4) Dementia, vascular, with depression (5) Dementia, vascular, with delusions (6) Major neurocognitive disorder (7) Dementia in Alzheimer's disease with depression (8) Dementia in Alzheimer's disease with delusions JOSE RUIZ MD Mar 14, 2022 21:37
[2022-03-15 06:20] VITALS: BP 166/80
[2022-03-15] MEDS: FLUTICASONE/VILANTEROL 100/25 INHALER. INH SCH (08:20)
[2022-03-15] MEDS: MEMANTINE 10 MG TABLET. PO SCH ×2 (08:21→20:45)
[2022-03-15] MEDS: CHOLECALCIFEROL (VITAMIN D3) 1,000 UNIT TABLET PO SCH (08:21)
[2022-03-15] MEDS: CYANOCOBALAMIN (VITAMIN B-12) 1,000 MCG TABLET. PO SCH (08:21)
[2022-03-15] MEDS: ASCORBIC ACID 500 MG TABLET PO SCH (08:22)
[2022-03-15] MEDS: AMIODARONE HCL 200 MG TABLET. PO SCH ×2 (08:22→20:45)
[2022-03-15] MEDS: GABAPENTIN 300 MG CAPSULE. PO SCH ×3 (08:22→20:45)
[2022-03-15] MEDS: predniSONE 5 MG TABLET PO SCH (08:22)
[2022-03-15] MEDS: SERTRALINE 50 MG TABLET. PO SCH (08:22)
[2022-03-15] MEDS: ANASTROZOLE 1 MG TABLET PO SCH (08:23)
--- NOTE | 2022-03-15 09:05 | PDOC ---
Exam Note: Avtar Note: This note is a late entry for 03/14/2022 covers elements not covered in my initial note. Subjective: The patient was seen individually on 03/14/2022, discussed and reviewed the chart with Bull KNOTT. The patient slept 7-1/4 hours previous night. She is somewhat more social and smiling. I met with her individually. Per nursing report she has been fairly appropriate. She is obsessing somewhat about discharge and I addressed this with her for Thursday. Review of Systems: No CV, , pulmonary, eye, ENT system symptoms on review. Mental Status Exam: Patient is oriented to herself and situation. Speech coherent. Abstraction fair. Computation impaired. Language function intact. Mood and affect anxious. Short-term memory is impaired. No suicidal or homicidal ideation. Laboratory Data: Reviewed. Impression: Psychotic disorder unspecified. Major neurocognitive disorder, Alzheimer, vascular with delusion, depression. Anxiety disorder unspecified. Impulse control disorder unspecified. Plan: Continue rest psychotropics unchanged. Reviewed drug interactions, risk- benefit ratio. Adjust as clinically indicated. Assessment: Vital Signs/I&O: Vital Signs Date Time Temp Pulse Resp B/P (MAP) Pulse Ox O2 Delivery O2 Flow Rate FiO2 03/15/22 08:22 62 119/61 03/15/22 06:20 97.5 16 96 03/14/22 07:05 Room Air I & O 03/14/22 03/14/22 03/15/22 15:00 23:00 07:00 Intake Total 590 ml 1080 ml Balance 590 ml 1080 ml Current Medications: I have reviewed the current psychotropics carefully including drug interactions. Risk benefit ratio favors no change other than as noted in my dictated progress note. Diagnosis: Problems: (1) Psychotic disorder (2) Impulse control disorder, unspecified (3) Anxiety disorder, unspecified (4) Dementia, vascular, with depression (5) Dementia, vascular, with delusions (6) Major neurocognitive disorder (7) Dementia in Alzheimer's disease with depression (8) Dementia in Alzheimer's disease with delusions JOSE RUIZ MD Mar 15, 2022 09:05
[2022-03-15] MEDS ORDERED: POLYVINYL ALCOHOL/POVIDONE/PF OPHTH SOLUTION DROPERETTE. OU PRN (09:45)
[2022-03-15 15:51] VITALS: BP 110/83
[2022-03-15] MEDS: SIMVASTATIN 20 MG TABLET PO SCH (20:44)
[2022-03-15] MEDS: QUEtiapine 25 MG TABLET. PO SCH (20:44)
[2022-03-15] MEDS: DONEPEZIL HCL 10 MG TABLET PO SCH (20:45)
[2022-03-15] MEDS: MAGNESIUM HYDROXIDE 2,400 MG/30 ML ORAL.SUSP. PO PRN (21:14)
--- NOTE | 2022-03-15 21:55 | PDOC ---
Exam Note: Avtar Note: Please also refer to the separate dictated note~for this date of service dictated separately.~Patient seen individually. Discussed the patient with Nursing staff reviewed the chart.~Reviewed interim history and current functioning. Reviewed vital signs,~Labs/ Radiology~and current medications noted below. Continue current treatment with the changes noted in the dictated addendum note Assessment: Vital Signs/I&O: Vital Signs Date Time Temp Pulse Resp B/P (MAP) Pulse Ox O2 Delivery O2 Flow Rate FiO2 03/15/22 20:45 69 110/83 03/15/22 15:51 98.8 18 98 03/14/22 07:05 Room Air I & O 03/14/22 03/14/22 03/15/22 15:00 23:00 07:00 Intake Total 590 ml 1080 ml Balance 590 ml 1080 ml Current Medications: Meds: Current Medications Medications (Trade) Dose Ordered Sig/Katelynn Route PRN Reason Start Time Stop Time Status Last Admin Dose Admin Albuterol Sulfate (Ventolin Hfa Inhaler) 2 puff PRN Q4HRS PRN INH wheezing 03/06/22 20:30 03/14/22 08:29 Amiodarone HCl (Cordarone) 200 mg BID PO 03/06/22 21:00 03/15/22 20:45 Anastrozole (Arimidex) 1 mg DAILY PO 03/07/22 09:00 03/15/22 08:23 Donepezil HCl (Aricept) 10 mg HS PO 03/06/22 21:00 03/15/22 20:45 Duloxetine HCl (Cymbalta) 60 mg DAILY PO 03/07/22 09:00 03/09/22 21:25 DC 03/09/22 08:07 Gabapentin (Neurontin) 900 mg BID PO 03/06/22 21:00 03/07/22 09:27 DC Acetaminophen/ Hydrocodone Bitart (Lortab 7.5/325) 1 tab PRN BID PRN PO MOD-SEV PAIN 03/06/22 20:00 Memantine (Namenda) 10 mg BID PO 03/06/22 21:00 03/15/22 20:45 Simvastatin (Zocor) 20 mg QHS PO 03/06/22 21:00 03/15/22 20:44 Ascorbic Acid (Vitamin C) 250 mg DAILY PO 03/07/22 09:00 03/15/22 08:22 Vitamin D (Vitamin D3) 1,000 unit DAILY PO 03/07/22 09:00 03/15/22 08:21 Fluoxetine HCl (PROzac) 40 mg DAILY PO 03/07/22 09:00 03/07/22 18:03 DC 03/07/22 09:50 Cyanocobalamin (Vitamin B-12) 1,000 mcg DAILY PO 03/07/22 09:00 03/15/22 08:21 Prednisone (Prednisone) 5 mg DAILY PO 03/07/22 09:00 03/15/22 08:22 Fluticasone/ Vilanterol (Breo Ellipta 100-25 Mcg) 1 puff DAILY INH 03/07/22 09:00 03/15/22 08:20 Acetaminophen (Tylenol) 650 mg PRN Q6HRS PRN PO MILD PAIN / TEMP > 100.3'F 03/06/22 20:30 03/13/22 20:30 Multi-Ingredient Ointment (Analgesic [place]) 1 kirk PRN QID PRN TP MUSCLE PAIN 03/06/22 20:30 Al Hydroxide/Mg Hydroxide (Mylanta Plus Xs) 15 ml PRN AFTMEALHC PRN PO DYSPEPSIA 03/06/22 20:30 Magnesium Hydroxide (Milk Of Magnesia) 2,400 mg PRN QHS PRN PO CONSTIPATION 03/06/22 20:30 03/15/22 21:14 Gabapentin (Neurontin) 300 mg TID PO 03/07/22 09:30 03/15/22 20:45 Potassium Chloride (Klor-Con) 20 meq TID PO 03/07/22 14:00 03/07/22 12:28 DC Potassium Chloride (Klor-Con) 20 meq DAILY PO 03/07/22 12:30 03/08/22 15:19 DC Donepezil HCl (Aricept) 10 mg HS PO 03/09/22 21:00 03/09/22 21:25 DC Memantine (Namenda) 10 mg BID PO 03/09/22 21:00 03/09/22 21:23 DC Sertraline HCl (Zoloft) 25 mg DAILY PO 03/10/22 09:00 03/12/22 15:00 DC 03/12/22 08:50 Sertraline HCl (Zoloft) 50 mg DAILY PO 03/13/22 09:00 03/15/22 08:22 Quetiapine Fumarate (SEROquel) 12.5 mg HS PO 03/09/22 21:00 03/15/22 20:44 Artificial Tears (Refresh Classic) 1 drop PRN Q15MIN PRN OU DRY EYE 03/15/22 09:45 03/15/22 12:13 Current Medications Medications (Trade) Dose Ordered Sig/Katelynn Route PRN Reason Start Time Stop Time Status Last Admin Dose Admin Artificial Tears (Refresh Classic) 1 drop PRN Q15MIN PRN OU DRY EYE 03/15/22 09:45 03/15/22 12:13 I have reviewed the current psychotropics carefully including drug interactions. Risk benefit ratio favors no change other than as noted in my dictated progress note. Diagnosis: Problems: (1) Psychotic disorder (2) Impulse control disorder, unspecified (3) Anxiety disorder, unspecified (4) Dementia, vascular, with depression (5) Dementia, vascular, with delusions (6) Major neurocognitive disorder (7) Dementia in Alzheimer's disease with depression (8) Dementia in Alzheimer's disease with delusions JOSE RUIZ MD Mar 15, 2022 21:55
[2022-03-16] MEDS ORDERED: ACET325T21 PO (00:43)
[2022-03-16] MEDS ORDERED: MAG-124 PO (00:44)
[2022-03-16] MEDS ORDERED: MAGN24003 PO (00:45)
[2022-03-16] MEDS ORDERED: METH85CR30 TP (00:47)
[2022-03-16] MEDS ORDERED: QUET25TA5 PO (00:49)
[2022-03-16] MEDS ORDERED: POLY1DRO3 OU (00:49)
[2022-03-16] MEDS ORDERED: SERT50TA PO (00:50)
[2022-03-16 06:30] VITALS: BP 162/73
[2022-03-16] MEDS: CHOLECALCIFEROL (VITAMIN D3) 1,000 UNIT TABLET PO SCH (07:40)
[2022-03-16] MEDS: AMIODARONE HCL 200 MG TABLET. PO SCH ×2 (07:40→20:26)
[2022-03-16] MEDS: SERTRALINE 50 MG TABLET. PO SCH (07:40)
[2022-03-16] MEDS: GABAPENTIN 300 MG CAPSULE. PO SCH ×3 (07:40→20:26)
[2022-03-16] MEDS: MEMANTINE 10 MG TABLET. PO SCH ×2 (07:41→20:25)
[2022-03-16] MEDS: ASCORBIC ACID 500 MG TABLET PO SCH (07:41)
[2022-03-16] MEDS: predniSONE 5 MG TABLET PO SCH (07:41)
[2022-03-16] MEDS: CYANOCOBALAMIN (VITAMIN B-12) 1,000 MCG TABLET. PO SCH (07:41)
[2022-03-16] MEDS: FLUTICASONE/VILANTEROL 100/25 INHALER. INH SCH (07:42)
[2022-03-16] MEDS: ANASTROZOLE 1 MG TABLET PO SCH (07:42)
[2022-03-16 15:52] VITALS: BP 133/71
[2022-03-16 15:56] VITALS: BP 133/71
[2022-03-16] MEDS: DONEPEZIL HCL 10 MG TABLET PO SCH (20:26)
[2022-03-16] MEDS: SIMVASTATIN 20 MG TABLET PO SCH (20:26)
[2022-03-16] MEDS: QUEtiapine 25 MG TABLET. PO SCH (20:27)
--- NOTE | 2022-03-16 21:35 | PDOC ---
Exam Note: Avtar Note: Please also refer to the separate dictated note~for this date of service dictated separately.~Patient seen individually. Discussed the patient with Nursing staff reviewed the chart.~Reviewed interim history and current functioning. Reviewed vital signs,~Labs/ Radiology~and current medications noted below. Continue current treatment with the changes noted in the dictated addendum note Assessment: Vital Signs/I&O: Vital Signs Date Time Temp Pulse Resp B/P (MAP) Pulse Ox O2 Delivery O2 Flow Rate FiO2 03/16/22 20:26 64 133/71 03/16/22 15:56 98.6 16 95 03/16/22 15:52 Room Air I & O 03/15/22 03/15/22 03/16/22 15:00 23:00 07:00 Intake Total 960 ml 480 ml Balance 960 ml 480 ml Current Medications: Meds: Current Medications Medications (Trade) Dose Ordered Sig/Katelynn Route PRN Reason Start Time Stop Time Status Last Admin Dose Admin Albuterol Sulfate (Ventolin Hfa Inhaler) 2 puff PRN Q4HRS PRN INH wheezing 03/06/22 20:30 03/14/22 08:29 Amiodarone HCl (Cordarone) 200 mg BID PO 03/06/22 21:00 03/16/22 20:26 Anastrozole (Arimidex) 1 mg DAILY PO 03/07/22 09:00 03/16/22 07:42 Donepezil HCl (Aricept) 10 mg HS PO 03/06/22 21:00 03/16/22 20:26 Duloxetine HCl (Cymbalta) 60 mg DAILY PO 03/07/22 09:00 03/09/22 21:25 DC 03/09/22 08:07 Gabapentin (Neurontin) 900 mg BID PO 03/06/22 21:00 03/07/22 09:27 DC Acetaminophen/ Hydrocodone Bitart (Lortab 7.5/325) 1 tab PRN BID PRN PO MOD-SEV PAIN 03/06/22 20:00 Memantine (Namenda) 10 mg BID PO 03/06/22 21:00 03/16/22 20:25 Simvastatin (Zocor) 20 mg QHS PO 03/06/22 21:00 03/16/22 20:26 Ascorbic Acid (Vitamin C) 250 mg DAILY PO 03/07/22 09:00 03/16/22 07:41 Vitamin D (Vitamin D3) 1,000 unit DAILY PO 03/07/22 09:00 03/16/22 07:40 Fluoxetine HCl (PROzac) 40 mg DAILY PO 03/07/22 09:00 03/07/22 18:03 DC 03/07/22 09:50 Cyanocobalamin (Vitamin B-12) 1,000 mcg DAILY PO 03/07/22 09:00 03/16/22 07:41 Prednisone (Prednisone) 5 mg DAILY PO 03/07/22 09:00 03/16/22 07:41 Fluticasone/ Vilanterol (Breo Ellipta 100-25 Mcg) 1 puff DAILY INH 03/07/22 09:00 03/16/22 07:42 Acetaminophen (Tylenol) 650 mg PRN Q6HRS PRN PO MILD PAIN / TEMP > 100.3'F 03/06/22 20:30 03/13/22 20:30 Multi-Ingredient Ointment (Analgesic [place]) 1 kirk PRN QID PRN TP MUSCLE PAIN 03/06/22 20:30 Al Hydroxide/Mg Hydroxide (Mylanta Plus Xs) 15 ml PRN AFTMEALHC PRN PO DYSPEPSIA 03/06/22 20:30 Magnesium Hydroxide (Milk Of Magnesia) 2,400 mg PRN QHS PRN PO CONSTIPATION 03/06/22 20:30 03/15/22 21:14 Gabapentin (Neurontin) 300 mg TID PO 03/07/22 09:30 03/16/22 20:26 Potassium Chloride (Klor-Con) 20 meq TID PO 03/07/22 14:00 03/07/22 12:28 DC Potassium Chloride (Klor-Con) 20 meq DAILY PO 03/07/22 12:30 03/08/22 15:19 DC Donepezil HCl (Aricept) 10 mg HS PO 03/09/22 21:00 03/09/22 21:25 DC Memantine (Namenda) 10 mg BID PO 03/09/22 21:00 03/09/22 21:23 DC Sertraline HCl (Zoloft) 25 mg DAILY PO 03/10/22 09:00 03/12/22 15:00 DC 03/12/22 08:50 Sertraline HCl (Zoloft) 50 mg DAILY PO 03/13/22 09:00 03/16/22 07:40 Quetiapine Fumarate (SEROquel) 12.5 mg HS PO 03/09/22 21:00 03/16/22 20:27 Artificial Tears (Refresh Classic) 1 drop PRN Q15MIN PRN OU DRY EYE 03/15/22 09:45 03/15/22 12:13 I have reviewed the current psychotropics carefully including drug interactions. Risk benefit ratio favors no change other than as noted in my dictated progress note. Diagnosis: Problems: (1) Psychotic disorder (2) Impulse control disorder, unspecified (3) Anxiety disorder, unspecified (4) Dementia, vascular, with depression (5) Dementia, vascular, with delusions (6) Major neurocognitive disorder (7) Dementia in Alzheimer's disease with depression (8) Dementia in Alzheimer's disease with delusions JOSE RUIZ MD March 16, 2022 21:35
[2022-03-17 06:14] VITALS: BP 158/57
--- NOTE | 2022-03-17 06:47 | PDOC ---
Exam Note: Avtar Note: This note is a late entry for 03/15/2022 covers elements not covered in my initial note. Subjective: The patient was seen individually on 03/15/2022, discussed and reviewed the chart with Jacob KNOTT. The patient slept 6 hours previous night. She visited her significant other earlier in the day. She does have short-term memory deficits, otherwise, pleasant, cooperative, not aggressive nor delusional. Review of Systems: No CV, , pulmonary, eye, ENT system symptoms on review. Mental Status Exam: Patient is oriented to herself and situation. I met with her in her room at length. She had many questions about her diagnosis, prognosis, how many years she would be alive and we have a very lengthy discussion about all of this. Speech coherent. Abstraction fair. Computation impaired. Language function intact. Mood and affect anxious. Short-term memory is impaired. No suicidal or homicidal ideation. Laboratory Data: Reviewed. Impression: Psychotic disorder unspecified. Major neurocognitive disorder, Alzheimer, vascular with delusion, depression. Anxiety disorder unspecified. Impulse control disorder unspecified. Plan: Continue rest psychotropics unchanged. Reviewed drug interactions, risk- benefit ratio. Adjust as clinically indicated. Assessment: Vital Signs/I&O: Vital Signs Date Time Temp Pulse Resp B/P (MAP) Pulse Ox O2 Delivery O2 Flow Rate FiO2 03/17/22 06:14 97.5 63 16 158/57 (90) 96 03/16/22 15:52 Room Air I & O 03/16/22 03/16/22 03/17/22 14:59 22:59 06:59 Intake Total 560 ml 720 ml Balance 560 ml 720 ml Current Medications: I have reviewed the current psychotropics carefully including drug interactions. Risk benefit ratio favors no change other than as noted in my dictated progress note. Diagnosis: Problems: (1) Psychotic disorder (2) Impulse control disorder, unspecified (3) Anxiety disorder, unspecified (4) Dementia, vascular, with depression (5) Dementia, vascular, with delusions (6) Major neurocognitive disorder (7) Dementia in Alzheimer's disease with depression (8) Dementia in Alzheimer's disease with delusions JOSE RUIZ MD March 17, 2022 06:47
--- NOTE | 2022-03-17 07:00 | PDOC ---
Exam Note: Avtar Note: This note is a late entry for 03/16/2022 covers elements not covered in my initial note. Subjective: The patient was seen individually on 03/16/2022, discussed and reviewed the chart with Jacob KNOTT. The patient slept 5 hours previous night. I met with her in her room. Review of Systems: No CV, , pulmonary, eye, ENT system symptoms on review. Mental Status Exam: Patient is oriented to herself and situation. She was pleasant, verbal interactive, does have short-term memory deficits but did not have the obsessive questions about and dying like she did yesterday. Speech coherent. Abstraction fair. Computation impaired. Language function intact. Mood and affect anxious. Short-term memory is impaired. No suicidal or homicidal ideation. Laboratory Data: Reviewed. Impression: Psychotic disorder unspecified. Major neurocognitive disorder, Alzheimer, vascular with delusion, depression. Anxiety disorder unspecified. Impulse control disorder unspecified. Plan: Continue rest psychotropics unchanged. Reviewed drug interactions, risk- benefit ratio. Adjust as clinically indicated. Transition to home with outpatient treatment tomorrow. Assessment: Vital Signs/I&O: Vital Signs Date Time Temp Pulse Resp B/P (MAP) Pulse Ox O2 Delivery O2 Flow Rate FiO2 03/17/22 06:14 97.5 63 16 158/57 (90) 96 03/16/22 15:52 Room Air I & O 03/16/22 03/16/22 03/17/22 15:00 23:00 07:00 Intake Total 560 ml 720 ml Balance 560 ml 720 ml Current Medications: I have reviewed the current psychotropics carefully including drug interactions. Risk benefit ratio favors no change other than as noted in my dictated progress note. Diagnosis: Problems: (1) Psychotic disorder (2) Impulse control disorder, unspecified (3) Anxiety disorder, unspecified (4) Dementia, vascular, with depression (5) Dementia, vascular, with delusions (6) Major neurocognitive disorder (7) Dementia in Alzheimer's disease with depression (8) Dementia in Alzheimer's disease with delusions JOSE RUIZ MD March 17, 2022 07:00
[2022-03-17] MEDS: CHOLECALCIFEROL (VITAMIN D3) 1,000 UNIT TABLET PO SCH (07:52)
[2022-03-17 07:53] VITALS: BP 158/57
[2022-03-17] MEDS: AMIODARONE HCL 200 MG TABLET. PO SCH (07:53)
[2022-03-17] MEDS: ACETAMINOPHEN 325 MG TABLET PO PRN (07:53)
[2022-03-17] MEDS: GABAPENTIN 300 MG CAPSULE. PO SCH (07:53)
[2022-03-17] MEDS: CYANOCOBALAMIN (VITAMIN B-12) 1,000 MCG TABLET. PO SCH (07:53)
[2022-03-17] MEDS: SERTRALINE 50 MG TABLET. PO SCH (07:53)
[2022-03-17] MEDS: ASCORBIC ACID 500 MG TABLET PO SCH (07:53)
[2022-03-17] MEDS: FLUTICASONE/VILANTEROL 100/25 INHALER. INH SCH (07:54)
[2022-03-17] MEDS: MEMANTINE 10 MG TABLET. PO SCH (07:56)
[2022-03-17] MEDS: ANASTROZOLE 1 MG TABLET PO SCH (07:56)
[2022-03-17] MEDS: predniSONE 5 MG TABLET PO SCH (08:07)
--- NOTE | 2022-03-17 21:29 | PDOC ---
Exam Note: Avtar Note: Please also refer to the separate dictated note~for this date of service dictated separately.~Patient seen individually. Discussed the patient with Nursing staff reviewed the chart.~Reviewed interim history and current functioning. Reviewed vital signs,~Labs/ Radiology~and current medications noted below. Continue current treatment with the changes noted in the dictated addendum note Assessment: Vital Signs/I&O: Vital Signs Date Time Temp Pulse Resp B/P (MAP) Pulse Ox O2 Delivery O2 Flow Rate FiO2 03/17/22 07:53 63 158/57 03/17/22 06:14 97.5 16 96 03/16/22 15:52 Room Air I & O 03/16/22 03/16/22 03/17/22 15:00 23:00 07:00 Intake Total 560 ml 720 ml Balance 560 ml 720 ml Current Medications: Meds: Current Medications Medications (Trade) Dose Ordered Sig/Katelynn Route PRN Reason Start Time Stop Time Status Last Admin Dose Admin Albuterol Sulfate (Ventolin Hfa Inhaler) 2 puff PRN Q4HRS PRN INH wheezing 03/06/22 20:30 03/17/22 09:51 DC 03/14/22 08:29 Amiodarone HCl (Cordarone) 200 mg BID PO 03/06/22 21:00 03/17/22 09:51 DC 03/17/22 07:53 Anastrozole (Arimidex) 1 mg DAILY PO 03/07/22 09:00 03/17/22 09:51 DC 03/17/22 07:56 Donepezil HCl (Aricept) 10 mg HS PO 03/06/22 21:00 03/17/22 09:51 DC 03/16/22 20:26 Duloxetine HCl (Cymbalta) 60 mg DAILY PO 03/07/22 09:00 03/09/22 21:25 DC 03/09/22 08:07 Gabapentin (Neurontin) 900 mg BID PO 03/06/22 21:00 03/07/22 09:27 DC Acetaminophen/ Hydrocodone Bitart (Lortab 7.5/325) 1 tab PRN BID PRN PO MOD-SEV PAIN 03/06/22 20:00 03/17/22 09:51 DC Memantine (Namenda) 10 mg BID PO 03/06/22 21:00 03/17/22 09:51 DC 03/17/22 07:56 Simvastatin (Zocor) 20 mg QHS PO 03/06/22 21:00 03/17/22 09:51 DC 03/16/22 20:26 Ascorbic Acid (Vitamin C) 250 mg DAILY PO 03/07/22 09:00 03/17/22 09:51 DC 03/17/22 07:53 Vitamin D (Vitamin D3) 1,000 unit DAILY PO 03/07/22 09:00 03/17/22 09:51 DC 03/17/22 07:52 Fluoxetine HCl (PROzac) 40 mg DAILY PO 03/07/22 09:00 03/07/22 18:03 DC 03/07/22 09:50 Cyanocobalamin (Vitamin B-12) 1,000 mcg DAILY PO 03/07/22 09:00 03/17/22 09:51 DC 03/17/22 07:53 Prednisone (Prednisone) 5 mg DAILY PO 03/07/22 09:00 03/17/22 09:51 DC 03/17/22 08:07 Fluticasone/ Vilanterol (Breo Ellipta 100-25 Mcg) 1 puff DAILY INH 03/07/22 09:00 03/17/22 09:51 DC 03/17/22 07:54 Acetaminophen (Tylenol) 650 mg PRN Q6HRS PRN PO MILD PAIN / TEMP > 100.3'F 03/06/22 20:30 03/17/22 09:51 DC 03/17/22 07:53 Multi-Ingredient Ointment (Analgesic [place]) 1 kirk PRN QID PRN TP MUSCLE PAIN 03/06/22 20:30 03/17/22 09:51 DC Al Hydroxide/Mg Hydroxide (Mylanta Plus Xs) 15 ml PRN AFTMEALHC PRN PO DYSPEPSIA 03/06/22 20:30 03/17/22 09:51 DC Magnesium Hydroxide (Milk Of Magnesia) 2,400 mg PRN QHS PRN PO CONSTIPATION 03/06/22 20:30 03/17/22 09:51 DC 03/15/22 21:14 Gabapentin (Neurontin) 300 mg TID PO 03/07/22 09:30 03/17/22 09:51 DC 03/17/22 07:53 Potassium Chloride (Klor-Con) 20 meq TID PO 03/07/22 14:00 03/07/22 12:28 DC Potassium Chloride (Klor-Con) 20 meq DAILY PO 03/07/22 12:30 03/08/22 15:19 DC Donepezil HCl (Aricept) 10 mg HS PO 03/09/22 21:00 03/09/22 21:25 DC Memantine (Namenda) 10 mg BID PO 03/09/22 21:00 03/09/22 21:23 DC Sertraline HCl (Zoloft) 25 mg DAILY PO 03/10/22 09:00 03/12/22 15:00 DC 03/12/22 08:50 Sertraline HCl (Zoloft) 50 mg DAILY PO 03/13/22 09:00 03/17/22 09:51 DC 03/17/22 07:53 Quetiapine Fumarate (SEROquel) 12.5 mg HS PO 03/09/22 21:00 03/17/22 09:51 DC 03/16/22 20:27 Artificial Tears (Refresh Classic) 1 drop PRN Q15MIN PRN OU DRY EYE 03/15/22 09:45 03/17/22 09:51 DC 03/15/22 12:13 I have reviewed the current psychotropics carefully including drug interactions. Risk benefit ratio favors no change other than as noted in my dictated progress note. Diagnosis: Problems: (1) Psychotic disorder (2) Impulse control disorder, unspecified (3) Anxiety disorder, unspecified (4) Dementia, vascular, with depression (5) Dementia, vascular, with delusions (6) Major neurocognitive disorder (7) Dementia in Alzheimer's disease with depression (8) Dementia in Alzheimer's disease with delusions JOSE RUIZ MD March 17, 2022 21:29
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
== END 2022-03-17 09:51 | disposition home or self-care (01) | DRG 57 ==
LOC: GEROPSY 18:42
PROVIDERS: ADMIT Psychiatry & Neurology Psychiatry; ATTEND Psychiatry & Neurology Psychiatry
DX: G30.9 Alzheimer's disease, unspecified (principal); F01.51 Vascular dementia, unspecified severity, with behavioral disturbance; F02.81 Dementia in other diseases classified elsewhere, unspecified severity, with behavioral disturbance; E78.5 Hyperlipidemia, unspecified; E87.6 Hypokalemia; F32.9 Major depressive disorder, single episode, unspecified; F41.9 Anxiety disorder, unspecified; F63.9 Impulse disorder, unspecified; G89.29 Other chronic pain; I10 Essential (primary) hypertension; J44.9 Chronic obstructive pulmonary disease, unspecified; M79.7 Fibromyalgia; N20.0 Calculus of kidney; S00.81XA Abrasion of other part of head, initial encounter; Y92.009 Unspecified place in unspecified non-institutional (private) residence as the place of occurrence of the external cause; Z79.899 Other long term (current) drug therapy; Z80.0 Family history of malignant neoplasm of digestive organs; Z82.62 Family history of osteoporosis; Z83.3 Family history of diabetes mellitus; Z87.442 Personal history of urinary calculi; Z99.3 Dependence on wheelchair; Z88.8 Allergy status to other drugs, medicaments and biological substances
CPT/HCPCS: 36415; 70450; 71045; 72125; 80048; 80053; 80061; 80076; 80307; 81001; 82140; 82306; 82550; 83036; 83540; 83550; 83690; 83735; 83880; 84436; 84443; 84480; 84484; 85025; 85027; 85379; 85610; 85730; 86592; 87428; 93005; 96372; 96374; G0378; G0379; G0480; J1630; J2060; J7512; U0003; 73564-50; 97530; 97535; 99285-25